=== PATIENT | female | born 1930 | race Caucasian/White ===

== ENCOUNTER → 2017-04-03 | Outpatient (CLI) | payer OTHER ==
[~2017-04-03] MED LIST: ALPR0.25 PO; ASCA500 PO; ASPI81TA28 PO; ATOR-22 PO; BIOT1CAP8 PO; CALC0.5C PO; CALCTAB7 PO; CHOL100010 PO; CLC100X PO; CNT PO; CYAN10004 PO; DOCU-94 PO; FERR-24 PO; FEXO1TAB49 PO; FURO20TA PO; FURO40TA3 PO; GABA-112 PO; HYDR-4716 PO; IMD2X PO; INSDGI SC; INSDGIPEN SC; LACTCHW3 PO; LEVO1TAB PO; LORA10TA51 PO; METO25TA56 PO; MULT-845 PO; NTRGSL/4 UT; NVLG SC; NVLGI SC; NYSP EXT; NYST80OI TOP; POLY335019 PO; POTA10CA28 PO; PRLSR20 PO; SPECCAP4 PO; SULF800T23 PO; SYN100 PO; TRAM-10 PO; WARF-246 PO; WARF2.5T8 PO; WARF5TAB7 PO; XNX25 PO
== END | disposition home or self-care (01) ==
LOC: C.LABSPEC 04-01 15:07
PROVIDERS: ATTEND Podiatrist
DX: E11.51 Type 2 diabetes mellitus with diabetic peripheral angiopathy without gangrene (principal); L97.511 Non-pressure chronic ulcer of other part of right foot limited to breakdown of skin; E11.42 Type 2 diabetes mellitus with diabetic polyneuropathy

== ENCOUNTER → 2017-04-10 | Outpatient (CLI) | payer OTHER ==
--- NOTE | 2017-04-10 13:21 | DIAGNOSTIC IMAGING REPORT ---
BILATERAL LOWER EXTREMITY ARTERIAL DOPPLER STUDY CLINICAL HISTORY: DIABETES. Lower extremity chronic ulcers. COMPARISON STUDY: None. FINDINGS: The right ankle-brachial index measured with the posterior tibial artery was 1.15 and the left ankle-brachial index measured with the dorsalis pedis artery is 1.06. The right dorsalis pedis artery and left posterior tibial artery were not compressible due to the calcified plaque. There are calcified bilateral lower extremity arteries. Triphasic to biphasic waveforms within the bilateral common femoral, superficial femoral, popliteal, and anterior tibial arteries. Borderline elevated peak systolic velocity within the mid right superficial femoral artery of 192 cm/s and within the right popliteal artery of 172 cm/s. The remaining bilateral lower extremity arterial systems demonstrate normal velocities are in Monophasic waveforms seen within the right posterior tibial, peroneal, dorsalis pedis arteries. Triphasic to biphasic waveforms and normal velocities within the left anterior tibial, posterior tibial, peroneal and dorsalis pedis arteries. IMPRESSION: 1. Diffusely calcified bilateral lower extremity arteries. 2. Borderline elevated peak systolic velocities within the mid right superficial femoral artery and right popliteal artery. These may represent areas of mild stenosis. 3. No evidence for arterial occlusion. 4. Monophasic waveforms seen within the right calf vessels consistent with diffuse atherosclerotic disease. Electronically signed by: Luigi Rodrigez M.D. 04/10/2017 1:20 PM Dictated Date/Time: 04/10/2017 1:06 PM
== END | disposition home or self-care (01) ==
LOC: C.ULTR 11:27
PROVIDERS: ATTEND Podiatrist
DX: L97.511 Non-pressure chronic ulcer of other part of right foot limited to breakdown of skin (principal); E11.51 Type 2 diabetes mellitus with diabetic peripheral angiopathy without gangrene; E11.42 Type 2 diabetes mellitus with diabetic polyneuropathy

== ENCOUNTER 2017-04-24 12:07 | Inpatient (IN) | payer OTHER ==
[~2017-04-24] VITALS: Ht 152.4 cm; Wt 80.0 kg
[~2017-04-24 12:07] MED LIST changes: -ALPR0.25 PO; -BIOT1CAP8 PO; -CALCTAB7 PO; -DOCU-94 PO; -FEXO1TAB49 PO; -FURO20TA PO; -HYDR-4716 PO; -INSDGIPEN SC; -MULT-845 PO; -NVLG SC; -NYSP EXT; -NYST80OI TOP; -POLY335019 PO; -SPECCAP4 PO; -SYN100 PO; -WARF-246 PO; -WARF2.5T8 PO
[2017-04-24 13:02] LABS: BASO % 0.7 %; BASO ABS # 0.03 K/uL (0-0.2); COMPLETE YES; EOS % 4.3 %; HEMATOCRIT 44.8 % (37-47); IG% 0.2 %; LYMPH % 28.5 %; LYMPH ABS # 1.27 K/uL (1.2-3.4); MEAN CELL VOLUME 93.9 fL (80-100); MEAN CORPUSCULAR HEMOGLOBIN 30.6 pg (25-34); MEAN CORPUSCULAR HGB CONC 32.6 g/dl (32-36); MEAN PLATELET VOLUME 8.4 fL (7.4-10.4); MONO % 7.4 %; NEUT % 58.9 %; PLATELET COUNT 216 K/uL (130-400); RED BLOOD COUNT 4.77 M/uL (4.2-5.4); WHITE BLOOD COUNT 4.45 K/uL (4.8-10.8)
--- NOTE | 2017-04-24 13:03 | EMERGENCY ROOM VISIT NOTE ---
History Report prepared by Cris: Bertha Rivas Under the Supervision of: Dr. Carleen Talbot D.O. First contact with patient: 12:19 Chief Complaint: REFERRED BY DOCTOR Stated Complaint: KIDNEY ISSUES-REFERRED BY DR. THORNE History of Present Illness The patient is an 86 year old female who presents to the Emergency Room with complaints of persistent abnormal labs that were drawn today. The patient reports that today she had a scheduled visit with her PCP today. She states that when she arrived home today she received a phone call from her doctor's office and was told to get to the emergency department right away for kidney issues. The patient reports that she sees a aluminizer twice per year, but has never been told a full diagnosis. She additionally notes that for the past 7 days she has been an antibiotic for a foot infection. The patient states home health comes every other day to dress her wound and states that she has an appointment with the wound clinic tomorrow. She additionally notes constipation today. The patient denies any change in appetite, chest pain, shortness of breath, vomiting, melena, hematochezia, or urinary symptoms. She reports that she is on Coumadin. I obtained the results from Dr. Thorne's office and the patients BUN and Creatine are 38 and 3.0 which are up from December from 28 and 1.9 Source of History: patient Onset: today Position: other (global) Quality: other (abnormal labs) Timing: other (persistent) Associated Symptoms: No chest pain, No SOB, No vomiting, No melena, No hematochezia, No urinary symptoms Review of Systems See HPI for pertinent positives & negatives. A total of 10 systems reviewed and were otherwise negative. Past Medical & Surgical Medical Problems: (1) RENATO (acute kidney injury) (2) Anticoagulated on warfarin (3) Atrial fibrillation (4) Carotid artery disease (5) Cerebrovascular disease (6) CHF (congestive heart failure) (7) Chronic kidney disease (CKD), stage IV (severe) (8) Coronary artery disease (9) Diabetes mellitus, type II (10) Dyslipidemia (11) Hypertension (12) Hypothyroidism (13) MRSA nasal colonization (14) Osteoporosis (15) Sleep apnea Surgical Problems: (1) History of heart artery stent (2) Status post cardiac catheterization (3) Status post cardiac pacemaker procedure (4) Status post carotid endarterectomy (5) Status post cholecystectomy (6) Status post hysterectomy Family History Diabetes mellitus Social History Smoking Status: Never Smoker Alcohol Use: none Drug Use: none Marital Status: Housing Status: lives alone Occupation Status: retired Current/Historical Medications Scheduled Aspirin (Aspirin Ec), 81 MG PO DAILY Atorvastatin (Lipitor), 20 MG PO QAM Calcium Carbonate-Vitamin D W/ (Caltrate 600 Plus), 1 TAB PO DAILY Ferrous Sulfate (Fe Tabs), 325 MG PO TID Furosemide (Lasix), 20 MG PO DAILY Gabapentin (Neurontin), 100 MG PO TID Hydralazine HCl (Hydralazine HCl), 1 TAB PO BID Insulin Aspart (Novolog), 0 SC UD Insulin Glargine (Lantus Solostar), 30 UNITS SC HS Lactobacillus (Lactinex), 1 TAB PO TID Levothyroxine Sodium (Synthroid), 1 TAB PO DAILYBB Metoprolol Tartrate (Lopressor) (Lopressor), 25 MG PO QAM Multiple Vitamins W/ Minerals (Centrum Silver Adult 50+), 1 TAB PO DAILY Nitroglycerin (Nitrostat), 0.4 MG UT PRN Nystatin (Nystop), 1 APPLN EXT BID Omeprazole (Prilosec), 20 MG PO QAM Polyethylene Glycol 3350 (Miralax), 17 GM PO DAILY Sulfa/Trimethoprim (Bactrim Ds 800MG/160MG), 1 TAB PO BID Warfarin Sodium (Warfarin Sodium), 2.5 MG PO QPM Scheduled PRN Alprazolam (Xanax), 0.25 MG PO BID PRN for Anxiety Fexofenadine Hcl (Holly Allergy), 1 TAB PO DAILY PRN for allergies Tramadol (Ultram), 50 MG PO Q8 PRN for Pain Allergies Coded Allergies: Codeine (Verified Allergy, Intermediate, 04/24/17) Adhesives (Verified Allergy, Unknown, red;itchy skin, 04/24/17) Physical Exam Vital Signs Date Time Temp Pulse Resp B/P (MAP) Pulse Ox O2 Delivery O2 Flow Rate FiO2 04/24/17 15:56 63 18 157/84 98 Room Air 04/24/17 13:50 69 18 188/73 98 Room Air 04/24/17 12:10 36.7 109 20 150/93 98 Room Air Physical Exam GENERAL: alert, well appearing, well nourished, no distress, non-toxic EYE EXAM: normal conjunctiva, PERRL and EOM's grossly intact OROPHARYNX: no exudate, no erythema, lips, buccal mucosa, and tongue normal and mucous membranes are moist NECK: supple, no nuchal rigidity, no adenopathy, non-tender LUNGS: Clear to auscultation. Normal chest wall mechanics HEART: no murmurs, S1 normal and S2 normal ABDOMEN: abdomen soft, non-tender, normo-active bowel sounds, no masses, no rebound or guarding. BACK: Back is symmetrical on inspection and there is no deformity, no midline tenderness, no CVA tenderness. SKIN: no rashes and no bruising UPPER EXTREMITIES: upper extremities are grossly normal. Good cap refill. LOWER EXTREMITIES: Great toe on right foot with dressing intact, not removed. No swelling, no redness or streaking up the foot, no edema, good cap refill. NEURO EXAM: Normal sensorium, cranial nerves II-XII grossly intact, normal speech, no gross weakness of arms, no gross weakness of legs. Medical Decision & Procedures ER Provider Diagnostic Interpretation: US:Per my review, radiologist interpretation. RENAL ULTRASOUND CLINICAL HISTORY: Acute on chronic kidney disease. COMPARISON STUDY: CT of the abdomen and pelvis October 06, 2008. TECHNIQUE: Sonography of the kidneys and the urinary bladder was performed. FINDINGS: There is no hydronephrosis. The right kidney measures 9.6 x 5.1 x 5.5 cm and the left measures 9 x 4.1 x 5.1 cm. Numerous anechoic lesions are consistent with cysts, measuring up to 1.7 cm. There is mild renal cortical thinning. No calculi or solid renal masses were identified by sonography. Neither ureteral jet was identified. IMPRESSION: 1. No hydronephrosis. 2. Mild renal cortical thinning and increased renal echogenicity. 3. Multiple renal cysts. Electronically signed by: Arnoldo Qureshi M.D. 04/24/2017 2:59 PM Dictated Date/Time: 04/24/2017 2:57 PM Laboratory Results 04/24/17 12:50 Red Blood Count 4.77, Mean Corpuscular Volume 93.9, Mean Corpuscular Hemoglobin 30.6, Mean Corpuscular Hemoglobin Concent 32.6, Mean Platelet Volume 8.4, Neutrophils (%) (Auto) 58.9, Lymphocytes (%) (Auto) 28.5, Monocytes (%) (Auto) 7.4, Eosinophils (%) (Auto) 4.3, Basophils (%) (Auto) 0.7, Neutrophils # (Auto) 2.62, Lymphocytes # (Auto) 1.27, Monocytes # (Auto) 0.33, Eosinophils # (Auto) 0.19, Basophils # (Auto) 0.03 Test 04/24/17 12:50 04/24/17 13:50 White Blood Count 4.45 K/uL (4.8-10.8) Red Blood Count 4.77 M/uL (4.2-5.4) Hemoglobin 14.6 g/dL (12.0-16.0) Hematocrit 44.8 % (37-47) Mean Corpuscular Volume 93.9 fL (80-100) Mean Corpuscular Hemoglobin 30.6 pg (25-34) Mean Corpuscular Hemoglobin Concent 32.6 g/dl (32-36) Platelet Count 216 K/uL (130-400) Mean Platelet Volume 8.4 fL (7.4-10.4) Neutrophils (%) (Auto) 58.9 % Lymphocytes (%) (Auto) 28.5 % Monocytes (%) (Auto) 7.4 % Eosinophils (%) (Auto) 4.3 % Basophils (%) (Auto) 0.7 % Neutrophils # (Auto) 2.62 K/uL (1.4-6.5) Lymphocytes # (Auto) 1.27 K/uL (1.2-3.4) Monocytes # (Auto) 0.33 K/uL (0.11-0.59) Eosinophils # (Auto) 0.19 K/uL (0-0.5) Basophils # (Auto) 0.03 K/uL (0-0.2) RDW Standard Deviation 51.0 fL (36.4-46.3) RDW Coefficient of Variation 14.9 % (11.5-14.5) Immature Granulocyte % (Auto) 0.2 % Immature Granulocyte # (Auto) 0.01 K/uL (0.00-0.02) Total Bilirubin 0.4 mg/dl (0.2-1) Aspartate Amino Transf (AST/SGOT) 23 U/L (15-37) Alanine Aminotransferase (ALT/SGPT) 37 U/L (12-78) Alkaline Phosphatase 92 U/L (45-117) Total Protein 8.8 gm/dl (6.4-8.2) Albumin 4.0 gm/dl (3.4-5.0) Globulin 4.8 gm/dl (2.5-4.0) Albumin/Globulin Ratio 0.8 (0.9-2) Urine Color YELLOW Urine Appearance CLOUDY (CLEAR) Urine pH 6.0 (4.5-7.5) Urine Specific [place] 1.020 (1.000-1.030) Urine Protein 2+ (NEG) Urine Glucose (UA) 1+ (NEG) Urine Ketones TRACE (NEG) Urine Occult Blood 2+ (NEG) Urine Nitrite POS (NEG) Urine Bilirubin NEG (NEG) Urine Urobilinogen NEG (NEG) Urine Leukocyte Esterase MODERATE (NEG) Urine WBC (Auto) >30 /hpf (0-5) Urine RBC (Auto) 10-30 /hpf (0-4) Urine Hyaline Casts (Auto) 1-5 /lpf (0-5) Urine Epithelial Cells (Auto) >30 /lpf (0-5) Urine Bacteria (Auto) 4+ (NEG) Urine Pathogenic Casts 5-10 GRANULAR CASTS /lpf (0) Laboratory results per my review. Medications Administered Medications (Trade) Dose Ordered Sig/Danisha Route Start Time Stop Time Status Last Admin Dose Admin Sodium Chloride 500 ml @ 999 mls/hr Q31M STAT IV 04/24/17 13:30 04/24/17 14:00 DC 04/24/17 13:49 999 MLS/HR ED Course 1239: The patient was evaluated in room C11B. A complete history and physical exam was performed. 1330: Ordered Sodium Chloride 500 ml @ 999 mls/hr IV. 1506: I reevaluated the patient and she is updated on her findings so far. Nephrology will be consulted. 1545: I discussed the patients case with Dr. Trinidad, Nephrology. She recommends that the patient is evaluated for further treatment, has an ID consult, and that the Bactrim is held. 1555: I reevaluated the patient and she is resting comfortably. I discussed the exam findings with the patient and I discussed the treatment plan. She verbalized complete understanding and agreement. She will be evaluated for further treatment. 1606: I discussed the patients case with Steffanie Hinton PA-C. She is going to evaluate the patient for further treatment. Medical Decision Medication Reconciliation: I attest that I have personally reviewed the patient' s current medication list. Blood pressure screening: Patient was found to have an elevated blood pressure and was referred to their primary doctor for recheck and further treatment. Pt well appearing here and had no complaints but was advised to come to ER after outpt routine labs revealed worsening Cr compared to baseline. Pt denies any complaints. Given pt complicated case, discussed with nephrology who reviewed pt record and advised admission monitoring of Cr, ID consult. Agrees bactrim recently used for wound infection likely reason for worsening renal function. Doesn't feel UA results requires additional antibiotics at this time. VS stable in the ER. Doubt bacteremia/sepsis. Pt aware of all results and plan and was agreeable. Consults Time Called: 1510 Consulting Physician: Dr. Trinidad, Nephrology Returned Call: [phone] I discussed the patients case with Dr. Trinidad, Nephrology. She recommends that the patient is evaluated for further treatment, has an ID consult, and that the Bactrim is held. Advises against additional antibiotics for UTI despite UA results. Feels likely chronic finding after additional review of pt' s records. Additional Consults: Time Called: 1555 Consulted Physician: Steffanie Hinton PA-C Returned Call: [phone] Additional Comments: I discussed the patients case with Steffanie Hinton PA-C. She is going to evaluate the patient for further treatment. Impression Primary Impression: Acute on chronic renal failure Additional Impression: Diabetic foot ulcer Scribe Attestation The scribe's documentation has been prepared under my direction and personally reviewed by me in its entirety. I confirm that the note above accurately reflects all work, treatment, procedures, and medical decision making performed by me. Departure Information Dispostion Being Evaluated By Hospitalist Referrals Lamonte Thorne D.O. (PCP) Problem Qualifiers Primary Impression: Acute on chronic renal failure Acute renal failure type: unspecified Chronic kidney disease stage: unspecified stage Qualified Codes: N17.9 - Acute kidney failure, unspecified; N18.9 - Chronic kidney disease, unspecified Additional Impression: Diabetic foot ulcer Diabetic foot ulcer location: toe Diabetes mellitus type: type 2 Laterality : right Non-pressure ulcer stage: unspecified non-pressure ulcer stage Qualified Codes: E11.621 - Type 2 diabetes mellitus with foot ulcer; L97.519 - Non-pressure chronic ulcer of other part of right foot with unspecified severity
[2017-04-24 13:17] LABS: INR 2.9 (0.9-1.1); PROTHROMBIN TIME (PATIENT) 32.6 SECONDS (9.0-12.0)
[2017-04-24 13:23] LABS: BUN/CREATININE RATIO 12.2 (10-20); POTASSIUM 3.9 mmol/L (3.5-5.1)
[2017-04-24 13:26] LABS: ALB/GLOB RATIO 0.8 (0.9-2)
[2017-04-24] MEDS ORDERED: SODIUM CHLORIDE 0.9% 500ML 500 ML IV STA (13:30)
[2017-04-24] MEDS ORDERED: NYST80OI TOP (13:41)
[2017-04-24] MEDS ORDERED: FEXO1TAB49 PO (13:41)
[2017-04-24] MEDS ORDERED: DOCU-94 PO (13:58)
[2017-04-24] MEDS ORDERED: SYN100 PO (13:58)
[2017-04-24] MEDS ORDERED: POLY335019 PO (13:58)
[2017-04-24] MEDS ORDERED: INSDGIPEN SC (13:58)
[2017-04-24] MEDS ORDERED: MULT-845 PO (13:58)
[2017-04-24] MEDS ORDERED: ALPR0.25 PO (13:58)
[2017-04-24] MEDS ORDERED: BIOT1CAP8 PO (13:58)
[2017-04-24] MEDS ORDERED: HYDR-4716 PO (13:58)
[2017-04-24] MEDS ORDERED: WARF-246 PO ×2 (13:58)
[2017-04-24] MEDS ORDERED: FURO20TA PO (13:58)
[2017-04-24] MEDS ORDERED: CALCTAB7 PO (13:58)
[2017-04-24] MEDS ORDERED: NVLG SC (13:59)
[2017-04-24 14:08] LABS: URINE APPEARANCE CLOUDY (CLEAR); URINE BILIRUBIN NEG (NEG); URINE COLOR YELLOW; URINE EPITHELIAL CELL AUTO >30 /lpf (0-5); URINE NITRITE POS (NEG); UROBILINOGEN NEG (NEG); ZZUR CULT IF INDIC CLEAN CATCH YES
[2017-04-24 14:09] LABS: MANUAL MICROSCOPIC REQUIRED? NO; REVIEW REQ? YES
[2017-04-24 14:26] LABS: URINE PATH CASTS 5-10 GRANULAR CASTS /lpf (0)
--- NOTE | 2017-04-24 15:00 | DIAGNOSTIC IMAGING REPORT ---
RENAL ULTRASOUND CLINICAL HISTORY: Acute on chronic kidney disease. COMPARISON STUDY: CT of the abdomen and pelvis October 06, 2008. TECHNIQUE: Sonography of the kidneys and the urinary bladder was performed. FINDINGS: There is no hydronephrosis. The right kidney measures 9.6 x 5.1 x 5.5 cm and the left measures 9 x 4.1 x 5.1 cm. Numerous anechoic lesions are consistent with cysts, measuring up to 1.7 cm. There is mild renal cortical thinning. No calculi or solid renal masses were identified by sonography. Neither ureteral jet was identified. IMPRESSION: 1. No hydronephrosis. 2. Mild renal cortical thinning and increased renal echogenicity. 3. Multiple renal cysts. Electronically signed by: Arnoldo Qureshi M.D. 04/24/2017 2:59 PM Dictated Date/Time: 04/24/2017 2:57 PM
[2017-04-24] MEDS ORDERED: PIPERACILLIN/TAZOBACTAM 3.375 GM/100ML D5W IV STA (15:39)
[2017-04-24] MEDS ORDERED: ACETAMINOPHEN 325 MG TAB PO PRN (17:30)
[2017-04-24] MEDS ORDERED: ONDANSETRON INJ 2 MG/ML 2 ML VIAL IV PRN (17:30)
[2017-04-24] MEDS ORDERED: DEXTROSE 50% 50 ML SYR IV PRN (17:45)
[2017-04-24] MEDS ORDERED: GLUCOSE 10 TABS/TUBE PO PRN (17:45)
[2017-04-24] MEDS ORDERED: GLUCOSE 40% GEL 15 GM TUBE PO PRN (17:45)
[2017-04-24] MEDS ORDERED: GLUCAGON FOR INJ 1 MG VIAL SQ PRN (17:45)
[2017-04-24] MEDS ORDERED: NYSP EXT (17:51)
[2017-04-24 18:00] VITALS: BP 153/73; PULSE 64; TEMP 36.8; O2SAT 98
[2017-04-24] MEDS ORDERED: NITROGLYCERIN 0.4 MG SL PER TAB CHARGE UT PRN (18:00)
[2017-04-24] MEDS ORDERED: FEXOFENADINE HCL 180 MG TAB PO PRN (18:00)
[2017-04-24] MEDS ORDERED: TRAMADOL HCL 50 MG TAB PO PRN (18:00)
[2017-04-24] MEDS ORDERED: SODIUM CHLORIDE 0.9% 1000ML 1,000 ML IV SCH (18:30)
[2017-04-24] MEDS ORDERED: INVANZ PHARMACY CONSULT IN PROGRESS PRN (19:15)
[2017-04-24] MEDS ORDERED: CIPROFLOXACIN CONSULT ACTIVE PRN ×2 (19:15)
[2017-04-24] MEDS: NYSTATIN POWDER 15GM BTL EXT SCH (19:34)
[2017-04-24] MEDS: FERROUS SULFATE 325 MG TAB PO SCH (19:39)
[2017-04-24] MEDS: WARFARIN SOD 2.5 MG TAB PO SCH (19:41)
[2017-04-24] MEDS: GABAPENTIN 100 MG CAP PO SCH (19:41)
[2017-04-24] MEDS: LACTOBACILLUS ACIDOPHILUS (FLORANEX) TAB PO SCH (19:43)
[2017-04-24 19:45] VITALS: Ht 152.4 cm; Wt 80.0 kg
[2017-04-24] MEDS ORDERED: ERTAPENEM IV 500 MG in SODIUM CHLORIDE 0.9% 50 ML IV SCH (20:00)
[2017-04-24] MEDS ORDERED: DAPTOMYCIN CONSULT ACTIVE SCH ×2 (20:51)
--- NOTE | 2017-04-24 20:54 | History and Physical ---
History & Physical Date & Time of Service: Apr 24, 2017 at 17:46 Chief Complaint: Kidney Issues-Referred By Dr. Thorne Primary Care Physician: Lamonte Thorne D.OAmber History of Present Illness Source: patient, clinic records This is an 86 year old female with PMH of CKD stage IV, AF on Coumadin, s/p pacemaker, CAD, systolic CHF, hx CVA, hypertension, DM 2, and other problems listed below who was sent to the ED by PCP Dr. Thorne for abnormal labs. Routine labs yesterday showed creatinine increased to 3.0 from baseline of 2 and therefore patient was called and told to come to ER. Patient has been on Bactrim for infected right great toe ulcer for past seven days with resolution of erythema and swelling. Denies drainage from ulcer. Pt follows with wound care and has appointment there tomorrow. Since being on the antibiotic has mild nausea/ decreased appetite but has forced herself to eat anyway. Has increased urinary frequency. Had symptomatic hypoglycemic episode with BSG of 54 a few days ago. She denies fever, chills, chest pain, SOB, vomiting, diarrhea, dysuria , edema, abnormal bleeding. No NSAID use. Past Medical/Surgical History Medical Problems: (1) Anticoagulated on warfarin Status: Chronic (2) Atrial fibrillation Status: Chronic (3) Carotid artery disease Status: Chronic (4) Cerebrovascular disease Status: Chronic (5) CHF (congestive heart failure) Permanent Comment: left ventricular systolic failure, LVEF 35% Status: Chronic (6) Chronic kidney disease (CKD), stage IV (severe) Status: Chronic (7) Coronary artery disease Status: Chronic (8) Diabetes mellitus, type II Status: Chronic (9) Dyslipidemia Status: Chronic (10) Hypertension Status: Chronic (11) Hypothyroidism Status: Chronic (12) MRSA nasal colonization Status: Chronic (13) Osteoporosis Status: Chronic (14) Sleep apnea Permanent Comment: intolerant of CPAP Status: Chronic Surgical Problems: (1) History of heart artery stent Status: Chronic (2) Status post cardiac catheterization Status: Chronic (3) Status post cardiac pacemaker procedure Status: Chronic (4) Status post carotid endarterectomy Status: Chronic (5) Status post cholecystectomy Status: Chronic (6) Status post hysterectomy Status: Chronic Family History Diabetes mellitus Social History Smoking Status: Former Smoker (quit in her 20s) Alcohol Use: none Drug Use: none Marital Status: Housing status: lives alone Occupational Status: retired Immunizations History of Influenza Vaccine: N/A Influenza Vaccine Date: Aug 20, 2006 History of Tetanus Vaccine?: unknown History of Pneumococcal: Yes Pneumococcal Date: Aug 12, 2005 History of Hepatitis B Vaccine: No Multi-Drug Resistant Organisms History of MDRO: Yes Type of MDRO: MRSA Allergies Coded Allergies: Codeine (Verified Allergy, Intermediate, 04/24/17) Adhesives (Verified Allergy, Unknown, red;itchy skin, 04/24/17) Home Medications Scheduled Aspirin (Aspirin Ec), 81 MG PO DAILY Atorvastatin (Lipitor), 20 MG PO QAM Calcium Carbonate-Vitamin D W/ (Caltrate 600 Plus), 1 TAB PO DAILY Ferrous Sulfate (Fe Tabs), 325 MG PO TID Furosemide (Lasix), 20 MG PO DAILY Gabapentin (Neurontin), 100 MG PO TID Hydralazine HCl (Hydralazine HCl), 1 TAB PO BID Insulin Aspart (Novolog), 0 SC UD Insulin Glargine (Lantus Solostar), 30 UNITS SC HS Lactobacillus (Lactinex), 1 TAB PO TID Levothyroxine Sodium (Synthroid), 1 TAB PO DAILYBB Metoprolol Tartrate (Lopressor) (Lopressor), 25 MG PO QAM Multiple Vitamins W/ Minerals (Centrum Silver Adult 50+), 1 TAB PO DAILY Nitroglycerin (Nitrostat), 0.4 MG UT PRN Nystatin (Nystop), 1 APPLN EXT BID Omeprazole (Prilosec), 20 MG PO QAM Polyethylene Glycol 3350 (Miralax), 17 GM PO DAILY Sulfa/Trimethoprim (Bactrim Ds 800MG/160MG), 1 TAB PO BID Warfarin Sodium (Warfarin Sodium), 2.5 MG PO QPM Scheduled PRN Alprazolam (Xanax), 0.25 MG PO BID PRN for Anxiety Fexofenadine Hcl (Holly Allergy), 1 TAB PO DAILY PRN for allergies Tramadol (Ultram), 50 MG PO Q8 PRN for Pain Review of Systems Ten systems reviewed and negative except as noted in HPI. Physical Exam Vital Signs Date Time Temp Pulse Resp B/P (MAP) Pulse Ox O2 Delivery O2 Flow Rate FiO2 04/24/17 15:56 63 18 157/84 98 Room Air 04/24/17 13:50 69 18 188/73 98 Room Air 04/24/17 12:10 36.7 109 20 150/93 98 Room Air General Appearance: WD/WN, no apparent distress, + pertinent finding (pleasant alert elderly female sitting on edge of bed, no distress) Head: normocephalic, atraumatic Eyes: normal inspection ENT: hearing grossly normal, pharynx normal Neck: supple, trachea midline Respiratory/Chest: lungs clear, normal breath sounds, no respiratory distress, no accessory muscle use Cardiovascular: regular rate, rhythm, no murmur Abdomen/GI: normal bowel sounds, non tender, soft Extremities/Musculoskelatal: no calf tenderness, normal capillary refill, no pedal edema Neurologic/Psych: alert, normal mood/affect, oriented x 3, + pertinent finding (no focal deficit on gross examination) Skin: warm/dry, + pertinent finding (right great toe eschar, no drainaage, no erythema or swelling, nontender. also has erythema, fungal odor, and skin tear in abdominal fold. ) Diagnostics Laboratory Results Results Past 24 Hours Test 04/24/17 12:49 04/24/17 12:50 04/24/17 13:50 Range/Units Bedside Glucose 123 70-90 mg/dl White Blood Count 4.45 4.8-10.8 K/uL Red Blood Count 4.77 4.2-5.4 M/uL Hemoglobin 14.6 12.0-16.0 g/dL Hematocrit 44.8 37-47 % Mean Corpuscular Volume 93.9 80-100 fL Mean Corpuscular Hemoglobin 30.6 25-34 pg Mean Corpuscular Hemoglobin Concent 32.6 32-36 g/dl Platelet Count 216 130-400 K/uL Mean Platelet Volume 8.4 7.4-10.4 fL Neutrophils (%) (Auto) 58.9 % Lymphocytes (%) (Auto) 28.5 % Monocytes (%) (Auto) 7.4 % Eosinophils (%) (Auto) 4.3 % Basophils (%) (Auto) 0.7 % Neutrophils # (Auto) 2.62 1.4-6.5 K/uL Lymphocytes # (Auto) 1.27 1.2-3.4 K/uL Monocytes # (Auto) 0.33 0.11-0.59 K/uL Eosinophils # (Auto) 0.19 0-0.5 K/uL Basophils # (Auto) 0.03 0-0.2 K/uL RDW Standard Deviation 51.0 36.4-46.3 fL RDW Coefficient of Variation 14.9 11.5-14.5 % Immature Granulocyte % (Auto) 0.2 % Immature Granulocyte # (Auto) 0.01 0.00-0.02 K/uL Prothrombin Time 32.6 9.0-12.0 SECONDS Prothromb Time International Ratio 2.9 0.9-1.1 Sodium Level 141 136-145 mmol/L Potassium Level 3.9 3.5-5.1 mmol/L Chloride Level 110 98-107 mmol/L Carbon Dioxide Level 20 21-32 mmol/L Anion Gap 11.0 3-11 mmol/L Blood Urea Nitrogen 37 7-18 mg/dl Creatinine 3.00 0.60-1.20 mg/dl Est Creatinine Clear Calc Drug Dose 13.1 ml/min Estimated GFR () 15.9 Estimated GFR (Non- 13.7 BUN/Creatinine Ratio 12.2 10-20 Random Glucose 119 70-99 mg/dl Calcium Level 9.0 8.5-10.1 mg/dl Total Bilirubin 0.4 0.2-1 mg/dl Aspartate Amino Transf (AST/SGOT) 23 15-37 U/L Alanine Aminotransferase (ALT/SGPT) 37 12-78 U/L Alkaline Phosphatase 92 45-117 U/L Total Protein 8.8 6.4-8.2 gm/dl Albumin 4.0 3.4-5.0 gm/dl Globulin 4.8 2.5-4.0 gm/dl Albumin/Globulin Ratio 0.8 0.9-2 Urine Color YELLOW Urine Appearance CLOUDY CLEAR Urine pH 6.0 4.5-7.5 Urine Specific [place] 1.020 1.000-1.030 Urine Protein 2+ NEG Urine Glucose (UA) 1+ NEG Urine Ketones TRACE NEG Urine Occult Blood 2+ NEG Urine Nitrite POS NEG Urine Bilirubin NEG NEG Urine Urobilinogen NEG NEG Urine Leukocyte Esterase MODERATE NEG Urine WBC (Auto) >30 0-5 /hpf Urine RBC (Auto) 10-30 0-4 /hpf Urine Hyaline Casts (Auto) 1-5 0-5 /lpf Urine Epithelial Cells (Auto) >30 0-5 /lpf Urine Bacteria (Auto) 4+ NEG Urine Pathogenic Casts 5-10 GRANULAR CASTS 0 /lpf Microbiology Results 04/24/17 Urine Culture, Received Pending Diagnostic Radiology RENAL ULTRASOUND CLINICAL HISTORY: Acute on chronic kidney disease. COMPARISON STUDY: CT of the abdomen and pelvis October 06, 2008. TECHNIQUE: Sonography of the kidneys and the urinary bladder was performed. FINDINGS: There is no hydronephrosis. The right kidney measures 9.6 x 5.1 x 5.5 cm and the left measures 9 x 4.1 x 5.1 cm. Numerous anechoic lesions are consistent with cysts, measuring up to 1.7 cm. There is mild renal cortical thinning. No calculi or solid renal masses were identified by sonography. Neither ureteral jet was identified. IMPRESSION: 1. No hydronephrosis. 2. Mild renal cortical thinning and increased renal echogenicity. 3. Multiple renal cysts. Impression Assessment and Plan RENATO ON CKD STAGE IV Creat is 3.0 from baseline 2 Likely due to Bactrim UA appears infected- treatment outlined below Renal US- No hydronephrosis. Mild renal cortical thinning and increased renal echogenicity. Multiple renal cysts. Received 500 mL IVF in ER Hold Bactrim, hold Lasix, give gentle IVF's at 50 mL/hour Recheck renal function in am Consult nephrology- case d/w Dr. Ramey by ED provider UTI History of recurrent UTI with prior urine cultures growing ESBL E. coli and pseudomonas. But latest culture in january 2017 growing e.coli sensitive to Rocephin and cefepime( In Epic). Afebrile, no leukocytosis Treat with empiric cefepime and daptomycin Follow up urine culture Consult ID, patient known to Dr. Acuña Right great toe infection f/u with wound clinic no active drainage seen holding Bactrim which was started about a week ago abx as above ID consulted wound care consult PAF ON COUMADIN Rate is controlled Continue metoprolol INR is 2.9; continue Coumadin HX CAD S/P STENT Stable, no anginal symptoms Continue aspirin, statin, beta loren CHRONIC SYSTOLIC CHF Euvolemic to mildly dry Hold Lasix Gentle IVF's Monitor volume status DM TYPE 2 Decrease Lantus due to reported symptomatic hypoglycemia at home Novolog sliding scale Monitor BSG AC HS A1c was 6.4 on 04/23/17 HYPERTENSION BP is elevated possibly due to anxiety of being in ER Continue metoprolol and hydralazine Monitor History of CVA Continue aspirin and statin HYPOTHYROIDISM Continue levothyroxine ALISSA Intolerant to CPAP DEEP VEIN THROMBOSIS PROPHYLAXIS: Continue Coumadin DISPOSITION Lives alone Follows with Dr. Thorne for primary care Patient seen in collaboration with Dr. Fiore. Please see his addendum. Agree with above note.Patient went to see her PCP yesterday for regular visit and was called today and told to go to ER as labs were abnormal. Her renal function worsened. Patient says she is having nausea since she started on Bactrim for her right great toe infection about a week ago. Otherwise was doing fine. No fevers. No sob or cough. Resting comfortably and hemodynamically stable. p/e Ge not in distress Cvs s1 and s2 heard regular, no murmurs Rs cta b/l no added sounds Abd benign Clinical Laboratory Assistant non focal Ext no edema no erythema a/p ARf on CKD4 baseline cr 2 presented with cr 3.0 holding Bactrim and Lasix on gentle fluids 'f/u labs in am nephrology consulted UTI and right great toe infection abx as above' f/u cx ID and wound care consult VTE Prophylaxis VTE Risk Assessment Done? Y/N: Yes Risk Level: Moderate Given or contraindicated: Warfarin (Coumadin)
[2017-04-24] MEDS ORDERED: DAPTOmycin IV 350 MG in SODIUM CHLORIDE 0.9% 50ML 50 ML IV SCH (21:00)
[2017-04-24] MEDS ORDERED: CEFEPIME CONSULT ACTIVE SCH ×2 (21:11)
[2017-04-24] MEDS ORDERED: CEFEPIME IV 2000 MG in DEXTROSE 5% 100ML IV ONE (21:30)
[2017-04-24] MEDS: ALPRAZOLAM 0.25 MG TAB PO PRN (22:31)
[2017-04-24] MEDS: INSULIN ASPART 100 UNITS/ML 3 ML PEN SC SCH (22:42)
[2017-04-24] MEDS: INSULIN GLARGINE SOLOSTAR 100 UNITS/ML 3 ML PEN SC SCH (22:43)
[2017-04-25] MEDS: LEVOTHYROXINE 100 MCG TAB PO SCH (06:39)
[2017-04-25 07:26] LABS: INR 2.4 (0.9-1.1); PROTHROMBIN TIME (PATIENT) 26.8 SECONDS (9.0-12.0)
[2017-04-25 07:47] LABS: BUN/CREATININE RATIO 11.8 (10-20); CALCIUM 7.7 mg/dl (8.5-10.1); CREATININE 2.8 mg/dl (0.60-1.20)
[2017-04-25 08:00] VITALS: O2SAT 97
[2017-04-25 08:13] VITALS: BP 143/82; PULSE 61; TEMP 36.5; O2SAT 98
[2017-04-25] MEDS: INSULIN ASPART 100 UNITS/ML 3 ML PEN SC SCH ×4 (09:02→21:37)
[2017-04-25] MEDS: ASPIRIN 81 MG ECTAB PO SCH ×3 (09:04→20:00)
[2017-04-25] MEDS: PANTOprazole SOD 40 MG TAB PO SCH (09:05)
[2017-04-25] MEDS: ATORVASTATIN 20 MG TAB PO SCH (09:05)
[2017-04-25] MEDS: CALCIUM 600MG + VIT D 400 IU TAB PO SCH (09:06)
[2017-04-25] MEDS: FERROUS SULFATE 325 MG TAB PO SCH ×3 (09:07→21:30)
[2017-04-25] MEDS: NYSTATIN POWDER 15GM BTL EXT SCH ×2 (09:08→21:29)
[2017-04-25] MEDS: POLYETHYLENE (MIRALAX) 17 GM PACK PO SCH (09:08)
[2017-04-25] MEDS: LACTOBACILLUS ACIDOPHILUS (FLORANEX) TAB PO SCH ×3 (09:09→18:03)
[2017-04-25] MEDS: CEROVITE ADV FORMULA TAB PO SCH (09:09)
[2017-04-25 09:10] VITALS: BP 148/74; PULSE 59
[2017-04-25] MEDS: GABAPENTIN 100 MG CAP PO SCH ×3 (09:11→21:32)
[2017-04-25] MEDS: METOPROLOL TARTRATE 25 MG TAB PO SCH ×2 (09:12→09:20)
[2017-04-25] MEDS: ALPRAZOLAM 0.25 MG TAB PO PRN ×2 (09:33→21:44)
--- NOTE | 2017-04-25 10:11 | Medical Consult ---
Consultation Date of Consultation: Apr 25, 2017. Attending Physician: Nyla Terrell M.D. Reason for Consultation: Recurrent UTI, hx ESBL E. Coli History of Present Illness Patient is an 86 yo female with history of CKD, AF s/p pacemaker, DM, and recurrent UTI's. The patient is well known to me from outpatient consultation previously for UTI. Recently, the patient has been following at the [facility] care center for right toe ulceration with E. Coli infection. She had recently been treated for right toe ulceration with PO Bactrim from records. The patient states that she has had multiple different abx lately for her feet, UTI's, etc. She states that she has been having nausea since admission and also has been experiencing some urinary frequency, but feels this may be from the IV fluids/ medications. She denies dysuria, hematuria, or urinary urgency. Since admission, her WBC count was 4.45. Creatinine was 3.00, and urine culture is growing GNB x 2. Urinalysis showed 4+ bacteria, >30 WBCs, Moderate Leukocyte esterase, and positive nitrite. Renal U/S showed no hydronephrosis but did show mild renal cortical thinning and increased renal echogenicity with multiple renal cysts. Dr. Acuña and I briefly discussed this patient with Dr. Trinidad as well. Past Medical/Surgical History Medical Problems: (1) Acute on chronic renal failure Status: Acute (2) Diabetic foot ulcer Status: Acute (3) Diabetic ulcer of right great toe Status: Acute (4) Fall Status: Acute (5) Intertrochanteric fracture of left hip Status: Acute Medical Problems: (1) RENATO (acute kidney injury) (2) Anticoagulated on warfarin (3) Atrial fibrillation (4) Carotid artery disease (5) Cerebrovascular disease (6) CHF (congestive heart failure) (7) Chronic kidney disease (CKD), stage IV (severe) (8) Coronary artery disease (9) Diabetes mellitus, type II (10) Dyslipidemia (11) Hypertension (12) Hypothyroidism (13) MRSA nasal colonization (14) Osteoporosis (15) Sleep apnea Surgical Problems: (1) History of heart artery stent (2) Status post cardiac catheterization (3) Status post cardiac pacemaker procedure (4) Status post carotid endarterectomy (5) Status post cholecystectomy (6) Status post hysterectomy Family History Diabetes mellitus Noncontributory Social History Smoking Status: Former Smoker (quit in her 20s) Alcohol Use: none Drug Use: none Marital Status: Housing Status: lives alone Occupation Status: retired Allergies Coded Allergies: Codeine (Verified Allergy, Intermediate, 04/24/17) Adhesives (Verified Allergy, Unknown, red;itchy skin, 04/24/17) Home Medications Reported Home Medications Medications Dose Route/Sig Max Daily Dose Days Date Category Dose Instructions Nystop (Nystatin) 45 Appln/15 Gm Powd 1 Appln EXT BID 04/24/17 Reported Novolog (Insulin Aspart) 100 Units/Ml Inj 0 SC UD 04/24/17 Reported sliding scale Miralax (Polyethylene Glycol 3350) 1 Pow Pow 17 Gm PO DAILY 04/24/17 Reported Caltrate 600 Plus (Calcium Carbonate-Vitamin D W/) 1 Tab Tab 1 Tab PO DAILY 04/24/17 Reported Centrum Silver Adult 50+ (Multiple Vitamins W/ Minerals) 1 Tab Tab 1 Tab PO DAILY 04/24/17 Reported Synthroid (Levothyroxine Sodium) 100 Mcg Tab 1 Tab PO DAILYBB 04/24/17 Reported Hydralazine HCl 25 Mg Tab 1 Tab PO BID 04/24/17 Reported Lasix (Furosemide) 20 Mg Tab 20 Mg PO DAILY 04/24/17 Reported Warfarin Sodium 5 Mg Tab 2.5 Mg PO QPM 90 04/24/17 Reported usually 5mg Saturday, Saturday, Saturday and Saturday and 2.5mg Saturday, and Saturday as of 04/23/17 taking 2.5mg for the remainder of the week Lantus Solostar (Insulin Glargine) 100 Unit/Ml Inj 30 Units SC HS 04/24/17 Reported Xanax (Alprazolam) 0.25 Mg Tab 0.25 Mg PO BID PRN 04/24/17 Reported Holly Allergy (Fexofenadine Hcl) 180 Mg Tab 1 Tab PO DAILY PRN 14 04/24/17 Reported Bactrim Ds 800MG/160MG (Trimethoprim/Sulfamethoxazole) Tab 1 Tab PO BID 04/18/17 Reported Ultram (Tramadol HCl) 50 Mg Tab 50 Mg PO Q8 PRN 10 06/06/16 Rx Lactinex (Lactobacillus) Chw 1 Tab PO TID 10/10/15 Reported Lipitor (Atorvastatin Calcium) 20 Mg Tab 20 Mg PO QAM 12/21/14 Reported Lopressor (Metoprolol Tartrate) 25 Mg Tab 25 Mg PO QAM 01/29/14 Reported Aspirin Ec (Aspirin) 81 Mg Tab 81 Mg PO DAILY 07/09/13 Reported Fe Tabs (Ferrous Sulfate) 325 Mg Tab 325 Mg PO TID 10/15/12 Reported Neurontin (Gabapentin) 100 Mg Cap 100 Mg PO TID 07/07/11 Reported Prilosec (Omeprazole) 20 Mg Capcr 20 Mg PO QAM 10/06/08 Reported Nitrostat (Nitroglycerin) 0.4 Mg Tab 0.4 Mg UT PRN 10/06/08 Reported ONE TAB UNDER TONGUE NEEDED FOR CHEST PAIN MAXIMUM 3 DOSES Current Inpatient Medications Current Inpatient Medications Medications (Trade) Dose Ordered Sig/Danisha Route Start Time Stop Time Status Last Admin Dose Admin Acetaminophen (Tylenol Tab) 650 mg Q4H PRN PO 04/24/17 17:30 05/24/17 17:29 Ondansetron HCl (Zofran Inj) 4 mg Q6H PRN IV 04/24/17 17:30 05/24/17 17:29 Sodium Chloride 1,000 ml @ 50 mls/hr Q20H IV 04/24/17 18:30 05/24/17 18:29 04/24/17 19:33 50 MLS/HR Insulin Aspart (novoLOG ASPART) SLIDING SCALE If C... ACHS SC 04/24/17 22:00 05/24/17 21:59 04/24/17 22:42 1 UNITS Glucose (Glucose 40% Gel) 15-30 GRAMS 15 GRAMS... UD PRN PO 04/24/17 17:45 05/24/17 17:44 Glucose (Glucose Chew Tab) 4-8 Tablets 4 Tabl... UD PRN PO 04/24/17 17:45 05/24/17 17:44 Dextrose (Dextrose 50% 50ML Syringe) 25-50ML OF 50% DW IV FOR... UD PRN IV 04/24/17 17:45 05/24/17 17:44 Glucagon (Glucagon Inj) 1 mg UD PRN SQ 04/24/17 17:45 05/24/17 17:44 Alprazolam (Xanax Tab) 0.25 mg BID PRN PO 04/24/17 18:00 05/24/17 17:59 04/25/17 09:33 0.25 MG Aspirin (Ecotrin Tab) 81 mg DAILY PO 04/25/17 08:00 05/25/17 08:59 Atorvastatin Calcium (Lipitor Tab) 20 mg QAM PO 04/25/17 08:00 05/25/17 08:59 04/25/17 09:05 20 MG Calcium/Vitamin D (Caltrate Plus Tab) 1 tab DAILY PO 04/25/17 08:00 05/25/17 08:59 04/25/17 09:06 1 TAB Ferrous Sulfate (Feosol Tab) 325 mg TID PO 04/24/17 20:00 05/24/17 20:59 04/25/17 09:07 325 MG Fexofenadine HCl (Holly Tab) 180 mg DAILY PRN PO 04/24/17 18:00 05/24/17 17:59 Gabapentin (Neurontin Cap) 100 mg TID PO 04/24/17 20:00 05/24/17 20:59 04/25/17 09:11 100 MG Hydralazine HCl (Apresoline Tab) 25 mg BID PO 04/24/17 20:00 05/24/17 20:59 04/25/17 09:04 25 MG Insulin Glargine (Lantus Solostar Pen) 20 unit HS SC 04/24/17 21:00 05/24/17 20:59 04/24/17 22:43 20 UNIT Lactobacillus Acidophilus (Floranex Tab) 4 tab TIDM PO 04/24/17 20:00 05/24/17 19:59 04/25/17 09:09 4 TAB Levothyroxine Sodium (Synthroid Tab) 100 mcg DAILYBB PO 04/25/17 06:30 05/25/17 06:59 04/25/17 06:39 100 MCG Metoprolol Tartrate (Lopressor Tab) 25 mg QAM PO 04/25/17 08:00 05/25/17 08:59 Multivitamins/ Minerals (Multivitamin W/ Minerals Tab) 1 tab DAILY PO 04/25/17 08:00 05/25/17 08:59 04/25/17 09:09 1 TAB Nitroglycerin (Nitrostat Tab) 0.4 mg UD PRN UT 04/24/17 18:00 05/24/17 17:59 Tramadol HCl (Ultram Tab) 50 mg Q8H PRN PO 04/24/17 18:00 05/24/17 17:59 Warfarin Sodium (Coumadin Tab) 2.5 mg DAILY@1600 PO 04/24/17 21:00 05/24/17 20:59 04/24/17 19:41 2.5 MG Pantoprazole Sodium (Protonix Tab) 40 mg QAM PO 04/25/17 08:00 05/25/17 08:59 04/25/17 09:05 40 MG Polyethylene (Miralax Powder Packet) 17 gm DAILY PO 04/25/17 08:00 05/25/17 08:59 04/25/17 09:08 17 GM Nystatin (Mycostatin Powder) 1 appln BID EXT 04/24/17 20:00 05/24/17 20:59 04/25/17 09:08 1 APPLN Cefepime HCl (Consult) 1 ea UD N/A 04/24/17 21:11 05/24/17 21:10 Daptomycin (Consult) 1 ea UD N/A 04/24/17 20:51 05/24/17 20:50 Daptomycin 350 mg/ Sodium Chloride 57 ml @ 120 mls/hr Q48H IV 04/24/17 21:00 05/04/17 20:59 04/24/17 21:59 120 MLS/HR Cefepime HCl 500 mg/Dextrose 105.65 ml @ 222.6 mls/hr DAILY@2000 IV 04/25/17 20:00 05/05/17 19:59 Review of Systems Constitutional: No fever, No chills, No sweats Eyes: No worsening of vision ENT: No hearing loss Respiratory: No cough, No shortness of breath Cardiovascular: No chest pain Abdomen: + nausea, No pain, No vomiting, No diarrhea Musculoskeletal: No joint pain Genitourinary - Female: + urinary frequency, No dysuria Integumentary: No rash, No itch Physical Exam Date Time Temp Pulse Resp B/P (MAP) Pulse Ox O2 Delivery O2 Flow Rate FiO2 04/25/17 09:10 59 148/74 (98) 04/25/17 08:13 36.5 61 18 143/82 (102) 98 Room Air 04/24/17 19:45 Room Air 04/24/17 18:00 36.8 64 18 153/73 (99) 98 Room Air 04/24/17 17:45 61 18 166/79 97 04/24/17 15:56 63 18 157/84 98 Room Air 04/24/17 13:50 69 18 188/73 98 Room Air 04/24/17 12:10 36.7 109 20 150/93 98 Room Air General Appearance: no apparent distress, + obese Head: normocephalic, atraumatic Eyes: normal inspection, sclerae normal ENT: hearing grossly normal Neck: supple, trachea midline Respiratory/Chest: chest non-tender, lungs clear, normal breath sounds, no respiratory distress, no accessory muscle use Cardiovascular: regular rate, rhythm, no murmur Abdomen/GI: normal bowel sounds, non tender, soft Extremities/Musculoskelatal: normal inspection, normal range of motion Neurologic/Psych: alert, normal mood/affect Skin: normal color, warm/dry, no rash Laboratory Results RENAL ULTRASOUND CLINICAL HISTORY: Acute on chronic kidney disease. COMPARISON STUDY: CT of the abdomen and pelvis October 06, 2008. TECHNIQUE: Sonography of the kidneys and the urinary bladder was performed. FINDINGS: There is no hydronephrosis. The right kidney measures 9.6 x 5.1 x 5.5 cm and the left measures 9 x 4.1 x 5.1 cm. Numerous anechoic lesions are consistent with cysts, measuring up to 1.7 cm. There is mild renal cortical thinning. No calculi or solid renal masses were identified by sonography. Neither ureteral jet was identified. IMPRESSION: 1. No hydronephrosis. 2. Mild renal cortical thinning and increased renal echogenicity. 3. Multiple renal cysts. RUN DATE: 04/25/17 [facility] LAB PAGE 1 RUN TIME: 0837 Specimen Inquiry PATIENT: MANE LEONG LOC: [id number] U # : [id number] AGE/SX: 86/F ROOM: 458 REG : 04/24/[address]: Nyla Terrell M.D. : 1930 BED: 1 DIS : STATUS: ADM IN TLOC: SPEC #: [id number] DAVID: 04/24/17 STATUS: RES REQ #: [id number] RECD: 04/24/[address]: Carleen Talbot DO SOURCE: ISHA, CC ENTR: 04/24/[address] [facility] [address]: Lamonte Thorne D.OAmber SPDES: ORDERED: CULTURE URCLEAN Procedure Result Verified Site URINE CULTURE Preliminary 04/25/17-0836 Organism 1 GRAM NEGATIVE BACILLI COLONY COUNT >100,000 CFU/ml SENS SENSITIVITY TO FOLLOW Organism 2 GRAM NEGATIVE BACILLI#2 COLONY COUNT >100,000 CFU/ml SENS SENSITIVITY TO FOLLOW Item Value Date Time Urine Culture - Preliminary Resulted 04/24/17 1350 Urine , Clean Catch Gram Negative Bacilli Last 24 Hours Test 04/24/17 12:49 04/24/17 12:50 04/24/17 13:50 04/24/17 17:55 Bedside Glucose 123 mg/dl 135 mg/dl White Blood Count 4.45 K/uL Red Blood Count 4.77 M/uL Hemoglobin 14.6 g/dL Hematocrit 44.8 % Mean Corpuscular Volume 93.9 fL Mean Corpuscular Hemoglobin 30.6 pg Mean Corpuscular Hemoglobin Concent 32.6 g/dl Platelet Count 216 K/uL Mean Platelet Volume 8.4 fL Neutrophils (%) (Auto) 58.9 % Lymphocytes (%) (Auto) 28.5 % Monocytes (%) (Auto) 7.4 % Eosinophils (%) (Auto) 4.3 % Basophils (%) (Auto) 0.7 % Neutrophils # (Auto) 2.62 K/uL Lymphocytes # (Auto) 1.27 K/uL Monocytes # (Auto) 0.33 K/uL Eosinophils # (Auto) 0.19 K/uL Basophils # (Auto) 0.03 K/uL RDW Standard Deviation 51.0 fL RDW Coefficient of Variation 14.9 % Immature Granulocyte % (Auto) 0.2 % Immature Granulocyte # (Auto) 0.01 K/uL Prothrombin Time 32.6 SECONDS Prothromb Time International Ratio 2.9 Sodium Level 141 mmol/L Potassium Level 3.9 mmol/L Chloride Level 110 mmol/L Carbon Dioxide Level 20 mmol/L Anion Gap 11.0 mmol/L Blood Urea Nitrogen 37 mg/dl Creatinine 3.00 mg/dl Est Creatinine Clear Calc Drug Dose 13.1 ml/min Estimated GFR () 15.9 Estimated GFR (Non- 13.7 BUN/Creatinine Ratio 12.2 Random Glucose 119 mg/dl Calcium Level 9.0 mg/dl Total Bilirubin 0.4 mg/dl Aspartate Amino Transf (AST/SGOT) 23 U/L Alanine Aminotransferase (ALT/SGPT) 37 U/L Alkaline Phosphatase 92 U/L Total Protein 8.8 gm/dl Albumin 4.0 gm/dl Globulin 4.8 gm/dl Albumin/Globulin Ratio 0.8 Urine Color YELLOW Urine Appearance CLOUDY Urine pH 6.0 Urine Specific [place] 1.020 Urine Protein 2+ Urine Glucose (UA) 1+ Urine Ketones TRACE Urine Occult Blood 2+ Urine Nitrite POS Urine Bilirubin NEG Urine Urobilinogen NEG Urine Leukocyte Esterase MODERATE Urine WBC (Auto) >30 /hpf Urine RBC (Auto) 10-30 /hpf Urine Hyaline Casts (Auto) 1-5 /lpf Urine Epithelial Cells (Auto) >30 /lpf Urine Bacteria (Auto) 4+ Urine Pathogenic Casts 5-10 GRANULAR CASTS /lpf Test 04/24/17 19:48 04/25/17 06:51 04/25/17 09:00 Bedside Glucose 163 mg/dl 98 mg/dl Prothrombin Time 26.8 SECONDS Prothromb Time International Ratio 2.4 Sodium Level 144 mmol/L Potassium Level 4.0 mmol/L Chloride Level 117 mmol/L Carbon Dioxide Level 19 mmol/L Anion Gap 8.0 mmol/L Blood Urea Nitrogen 33 mg/dl Creatinine 2.80 mg/dl Est Creatinine Clear Calc Drug Dose 14.0 ml/min Estimated GFR () 17.3 Estimated GFR (Non- 14.9 BUN/Creatinine Ratio 11.8 Random Glucose 74 mg/dl Calcium Level 7.7 mg/dl Total Creatine Kinase 77 U/L Assessment & Plan Patient with RENATO, right great toe infection with E. Coli, and possible GNB UTI. The patient has history of ESBL E. Coli UTI and Pseudomonal UTI. The patient has had some urinary frequency, but no dysuria, flank pain, or urgency. Question whether or not she needs treatment for GNB in urine, though with dirty UA and increased Creatinine, this could be due to recent abx administration versus UTI versus multifactorial. Will continue IV Cefepime pending urine culture results and improvement. She is also on IV Daptomycin as well right now , but do not feel she needs this- therefore, will D/C. We will follow. PROVIDER ADDENDUM: Patient examined and reviewed with Ms. Cardenas. Agree with above assessment.
--- NOTE | 2017-04-25 10:23 | Clinical Documentation Query ---
Dr. LOPEZ KATH : CLINICAL DOCUMENTATION QUERY Patient is an 86 year old female admitted for RENATO on CKD stage 4, UTI, and a "right great toe infection", not otherwise specified. Patient noted to follow at wound clinic. Wound nurse and ID consultations pending. Wound center notes from 04/15/17 included "Palacios grade 2 diabetic foot ulcer, right great toe". Please specify as clinically appropriate. Thank you. In your clinical opinion is this patient being managed for: ( x ) Palacios grade 2 diabetic foot ulcer, right great toe ( ) Other explanation of clinical findings (Please Explain) ( ) Unable to determine (Please Define) ( ) Need to Discuss ( ) Not Agree The medical record reflects the following clinical findings, treatment, and risk factors. Clinical Indicators: As above Treatment: WOCN, ID consultation, antibiotics, waffle boots, EHOB mattress Risk Factors: Age, DM type 2 Please clarify and document your clinical opinion in the progress notes and discharge summary. Terms such as "probable", "suspected", "likely", "questionable", "possible", or "still to be ruled out" are acceptable. IF IN AGREEMENT, YOU MUST DOCUMENT ABOVE DIAGNOSTIC STATEMENT IN DAILY PROGRESS NOTES AND DISCHARGE SUMMARY. This document is not part of the patient's record. Thank You, Erich White RN [phone]
--- NOTE | 2017-04-25 13:10 | Nephrology Consultation ---
Nephrology Consultation Date of Consultation: Apr 25, 2017. Attending Physician: Dr Terrell Requesting Physician: Dr Fiore Reason for Consultation: RENATO on CKD History of Present Illness 86 year old female w/ CKD4, AF on coumadin, CAD, systolic HF, past stroke, DM sent by PCP to ER after outpt labs showed creatinine of 3 up from baseline of 2. She was yesterday 7 days into 10 day course of bactrim for mgt of diabetic ulcer R great toe; she follows at the wound clinic and is known to Dr. Acuña per her report. 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 her urine cx this am is growing 2 GNR. She did endorse w/ admitting team some possibly decreased po intake on abtc d/t GI upset and increased urinary frequency. She had also been evaluated about a year ago for UTI / voiding sx by urology and was noted to have multiple ulcerative vaginal labial lesions for which FEE CLERK eval for possible BX was recommended; this eval did not occur. She denies knowledge of / pain from such lesions. She is currently receiving cefepime and daptomycin. Inf dzs has been consulted. This AM her creatinine is 2.8. She had no leukocytosis or lower bp or fever since presentation. She follows w/ Dr. Zamudio in CKD clinic. Past Medical/Surgical History Medical Problems: (1) Acute on chronic renal failure Status: Acute (2) Diabetic foot ulcer Status: Acute (3) Diabetic ulcer of right great toe Status: Acute -as per HPI -carotid stenosis -BL PVD nonobstructive Family History Diabetes mellitus Social History Smoking Status: Former Smoker (quit in her 20s) Alcohol Use: none Drug Use: none Marital Status: Housing Status: lives alone Occupation Status: retired Allergies Coded Allergies: Codeine (Verified Allergy, Intermediate, 04/24/17) Adhesives (Verified Allergy, Unknown, red;itchy skin, 04/24/17) Medications Current Inpatient Medications Medications (Trade) Dose Ordered Sig/Danisha Route Start Time Stop Time Status Last Admin Dose Admin Acetaminophen (Tylenol Tab) 650 mg Q4H PRN PO 04/24/17 17:30 05/24/17 17:29 Ondansetron HCl (Zofran Inj) 4 mg Q6H PRN IV 04/24/17 17:30 05/24/17 17:29 Sodium Chloride 1,000 ml @ 50 mls/hr Q20H IV 04/24/17 18:30 05/24/17 18:29 04/24/17 19:33 50 MLS/HR Insulin Aspart (novoLOG ASPART) SLIDING SCALE If C... ACHS SC 04/24/17 22:00 05/24/17 21:59 04/24/17 22:42 1 UNITS Glucose (Glucose 40% Gel) 15-30 GRAMS 15 GRAMS... UD PRN PO 04/24/17 17:45 05/24/17 17:44 Glucose (Glucose Chew Tab) 4-8 Tablets 4 Tabl... UD PRN PO 04/24/17 17:45 05/24/17 17:44 Dextrose (Dextrose 50% 50ML Syringe) 25-50ML OF 50% DW IV FOR... UD PRN IV 04/24/17 17:45 05/24/17 17:44 Glucagon (Glucagon Inj) 1 mg UD PRN SQ 04/24/17 17:45 05/24/17 17:44 Alprazolam (Xanax Tab) 0.25 mg BID PRN PO 04/24/17 18:00 05/24/17 17:59 04/24/17 22:31 0.25 MG Aspirin (Ecotrin Tab) 81 mg DAILY PO 04/25/17 08:00 05/25/17 08:59 Atorvastatin Calcium (Lipitor Tab) 20 mg QAM PO 04/25/17 08:00 05/25/17 08:59 Calcium/Vitamin D (Caltrate Plus Tab) 1 tab DAILY PO 04/25/17 08:00 05/25/17 08:59 Ferrous Sulfate (Feosol Tab) 325 mg TID PO 04/24/17 20:00 05/24/17 20:59 04/24/17 19:39 325 MG Fexofenadine HCl (Holly Tab) 180 mg DAILY PRN PO 04/24/17 18:00 05/24/17 17:59 Gabapentin (Neurontin Cap) 100 mg TID PO 04/24/17 20:00 05/24/17 20:59 04/24/17 19:41 100 MG Hydralazine HCl (Apresoline Tab) 25 mg BID PO 04/24/17 20:00 05/24/17 20:59 04/24/17 19:39 25 MG Insulin Glargine (Lantus Solostar Pen) 20 unit HS SC 04/24/17 21:00 05/24/17 20:59 04/24/17 22:43 20 UNIT Lactobacillus Acidophilus (Floranex Tab) 4 tab TIDM PO 04/24/17 20:00 05/24/17 19:59 04/24/17 19:43 4 TAB Levothyroxine Sodium (Synthroid Tab) 100 mcg DAILYBB PO 04/25/17 06:30 05/25/17 06:59 04/25/17 06:39 100 MCG Metoprolol Tartrate (Lopressor Tab) 25 mg QAM PO 04/25/17 08:00 05/25/17 08:59 Multivitamins/ Minerals (Multivitamin W/ Minerals Tab) 1 tab DAILY PO 04/25/17 08:00 05/25/17 08:59 Nitroglycerin (Nitrostat Tab) 0.4 mg UD PRN UT 04/24/17 18:00 05/24/17 17:59 Tramadol HCl (Ultram Tab) 50 mg Q8H PRN PO 04/24/17 18:00 05/24/17 17:59 Warfarin Sodium (Coumadin Tab) 2.5 mg DAILY@1600 PO 04/24/17 21:00 05/24/17 20:59 04/24/17 19:41 2.5 MG Pantoprazole Sodium (Protonix Tab) 40 mg QAM PO 04/25/17 08:00 05/25/17 08:59 Polyethylene (Miralax Powder Packet) 17 gm DAILY PO 04/25/17 08:00 05/25/17 08:59 Nystatin (Mycostatin Powder) 1 appln BID EXT 04/24/17 20:00 05/24/17 20:59 04/24/17 19:34 1 APPLN Cefepime HCl (Consult) 1 ea UD N/A 04/24/17 21:11 05/24/17 21:10 Daptomycin (Consult) 1 ea UD N/A 04/24/17 20:51 05/24/17 20:50 Daptomycin 350 mg/ Sodium Chloride 57 ml @ 120 mls/hr Q48H IV 04/24/17 21:00 05/04/17 20:59 04/24/17 21:59 120 MLS/HR Cefepime HCl 500 mg/Dextrose 105.65 ml @ 222.6 mls/hr DAILY@2000 IV 04/25/17 20:00 05/05/17 19:59 Home Meds and Scripts Medications Dose Route/Sig Max Daily Dose Days Date Category Dose Instructions Nystop (Nystatin) 45 Appln/15 Gm Powd 1 Appln EXT BID 04/24/17 Reported Novolog (Insulin Aspart) 100 Units/Ml Inj 0 SC UD 04/24/17 Reported sliding scale Miralax (Polyethylene Glycol 3350) 1 Pow Pow 17 Gm PO DAILY 04/24/17 Reported Caltrate 600 Plus (Calcium Carbonate-Vitamin D W/) 1 Tab Tab 1 Tab PO DAILY 04/24/17 Reported Centrum Silver Adult 50+ (Multiple Vitamins W/ Minerals) 1 Tab Tab 1 Tab PO DAILY 04/24/17 Reported Synthroid (Levothyroxine Sodium) 100 Mcg Tab 1 Tab PO DAILYBB 04/24/17 Reported Hydralazine HCl 25 Mg Tab 1 Tab PO BID 04/24/17 Reported Lasix (Furosemide) 20 Mg Tab 20 Mg PO DAILY 04/24/17 Reported Warfarin Sodium 5 Mg Tab 2.5 Mg PO QPM 90 04/24/17 Reported usually 5mg Saturday, Saturday, Saturday and Saturday and 2.5mg Saturday, and Saturday as of 04/23/17 taking 2.5mg for the remainder of the week Lantus Solostar (Insulin Glargine) 100 Unit/Ml Inj 30 Units SC HS 04/24/17 Reported Xanax (Alprazolam) 0.25 Mg Tab 0.25 Mg PO BID PRN 04/24/17 Reported Holly Allergy (Fexofenadine Hcl) 180 Mg Tab 1 Tab PO DAILY PRN 14 04/24/17 Reported Bactrim Ds 800MG/160MG (Trimethoprim/Sulfamethoxazole) Tab 1 Tab PO BID 04/18/17 Reported Ultram (Tramadol HCl) 50 Mg Tab 50 Mg PO Q8 PRN 10 7/27/16 Rx Lactinex (Lactobacillus) Chw 1 Tab PO TID 10/10/15 Reported Lipitor (Atorvastatin Calcium) 20 Mg Tab 20 Mg PO QAM 12/21/14 Reported Lopressor (Metoprolol Tartrate) 25 Mg Tab 25 Mg PO QAM 01/29/14 Reported Aspirin Ec (Aspirin) 81 Mg Tab 81 Mg PO DAILY 07/09/13 Reported Fe Tabs (Ferrous Sulfate) 325 Mg Tab 325 Mg PO TID 10/15/12 Reported Neurontin (Gabapentin) 100 Mg Cap 100 Mg PO TID 07/07/11 Reported Prilosec (Omeprazole) 20 Mg Capcr 20 Mg PO QAM 10/06/08 Reported Nitrostat (Nitroglycerin) 0.4 Mg Tab 0.4 Mg UT PRN 10/06/08 Reported ONE TAB UNDER TONGUE NEEDED FOR CHEST PAIN MAXIMUM 3 DOSES Review of Systems Constitutional: No weakness, No fatigue Eyes: No worsening of vision ENT: No hearing loss Respiratory: No cough, No shortness of breath Cardiac: No chest pain, No edema, No palpitations Abdomen: + nausea (small bit of N/ gi upset w/ meds), No vomiting, No diarrhea Musculoskeletal: No joint pain, No muscle pain Female : + urinary frequency (constant/ ongoing but ? worse with bactim on board), No dysuria, No hematuria, No vaginal discharge Neuro: No memory loss, No weakness Psych: No depression symptoms, No anxiety Heme: No abnormal bleeding/bruising Endo: No fatigue Skin: No rash, No itch Physical Exam Date Time Temp Pulse Resp B/P (MAP) Pulse Ox O2 Delivery O2 Flow Rate FiO2 04/25/17 08:13 36.5 61 18 143/82 (102) 98 Room Air 04/24/17 19:45 Room Air 04/24/17 18:00 36.8 64 18 153/73 (99) 98 Room Air 04/24/17 17:45 61 18 166/79 97 04/24/17 15:56 63 18 157/84 98 Room Air 04/24/17 13:50 69 18 188/73 98 Room Air 04/24/17 12:10 36.7 109 20 150/93 98 Room Air General Appearance: WD/WN, no apparent distress (lying flat on RA) Eyes: EOMI ENT: hearing grossly normal Neck: supple Respiratory/Chest: no respiratory distress, + decreased breath sounds Cardiovascular: regular rate, rhythm, no edema, + systolic murmur Abdomen: normal bowel sounds, non tender, soft (no llamas) Extremities: no pedal edema, + pertinent finding (bl feet in boots) Neurologic/Psych: alert, normal mood/affect, oriented x 3 Skin: no jaundice, warm/dry, no rash Diagnostics Last 24 Hours Test 04/24/17 12:49 04/24/17 12:50 04/24/17 13:50 04/24/17 17:55 Bedside Glucose 123 mg/dl 135 mg/dl White Blood Count 4.45 K/uL Red Blood Count 4.77 M/uL Hemoglobin 14.6 g/dL Hematocrit 44.8 % Mean Corpuscular Volume 93.9 fL Mean Corpuscular Hemoglobin 30.6 pg Mean Corpuscular Hemoglobin Concent 32.6 g/dl Platelet Count 216 K/uL Mean Platelet Volume 8.4 fL Neutrophils (%) (Auto) 58.9 % Lymphocytes (%) (Auto) 28.5 % Monocytes (%) (Auto) 7.4 % Eosinophils (%) (Auto) 4.3 % Basophils (%) (Auto) 0.7 % Neutrophils # (Auto) 2.62 K/uL Lymphocytes # (Auto) 1.27 K/uL Monocytes # (Auto) 0.33 K/uL Eosinophils # (Auto) 0.19 K/uL Basophils # (Auto) 0.03 K/uL RDW Standard Deviation 51.0 fL RDW Coefficient of Variation 14.9 % Immature Granulocyte % (Auto) 0.2 % Immature Granulocyte # (Auto) 0.01 K/uL Prothrombin Time 32.6 SECONDS Prothromb Time International Ratio 2.9 Sodium Level 141 mmol/L Potassium Level 3.9 mmol/L Chloride Level 110 mmol/L Carbon Dioxide Level 20 mmol/L Anion Gap 11.0 mmol/L Blood Urea Nitrogen 37 mg/dl Creatinine 3.00 mg/dl Est Creatinine Clear Calc Drug Dose 13.1 ml/min Estimated GFR () 15.9 Estimated GFR (Non- 13.7 BUN/Creatinine Ratio 12.2 Random Glucose 119 mg/dl Calcium Level 9.0 mg/dl Total Bilirubin 0.4 mg/dl Aspartate Amino Transf (AST/SGOT) 23 U/L Alanine Aminotransferase (ALT/SGPT) 37 U/L Alkaline Phosphatase 92 U/L Total Protein 8.8 gm/dl Albumin 4.0 gm/dl Globulin 4.8 gm/dl Albumin/Globulin Ratio 0.8 Urine Color YELLOW Urine Appearance CLOUDY Urine pH 6.0 Urine Specific Pax 1.020 Urine Protein 2+ Urine Glucose (UA) 1+ Urine Ketones TRACE Urine Occult Blood 2+ Urine Nitrite POS Urine Bilirubin NEG Urine Urobilinogen NEG Urine Leukocyte Esterase MODERATE Urine WBC (Auto) >30 /hpf Urine RBC (Auto) 10-30 /hpf Urine Hyaline Casts (Auto) 1-5 /lpf Urine Epithelial Cells (Auto) >30 /lpf Urine Bacteria (Auto) 4+ Urine Pathogenic Casts 5-10 GRANULAR CASTS /lpf Test 04/24/17 19:48 04/25/17 06:51 Bedside Glucose 163 mg/dl Prothrombin Time 26.8 SECONDS Prothromb Time International Ratio 2.4 Sodium Level 144 mmol/L Potassium Level 4.0 mmol/L Chloride Level 117 mmol/L Carbon Dioxide Level 19 mmol/L Anion Gap 8.0 mmol/L Blood Urea Nitrogen 33 mg/dl Creatinine 2.80 mg/dl Est Creatinine Clear Calc Drug Dose 14.0 ml/min Estimated GFR () 17.3 Estimated GFR (Non- 14.9 BUN/Creatinine Ratio 11.8 Random Glucose 74 mg/dl Calcium Level 7.7 mg/dl Total Creatine Kinase 77 U/L Diagnostic Radiology: Renal u/s > no hydronephrosis, multiple renal cysts TTE 01/2016 in EPIC EF 55%, grade 2 diastolic dysfunction, moderate TR; RV function wnl Assessment & Plan 86 y/o F w/ DM, stroke hx, PAF, CAD, CKD 4 admitted for RENATO on ckd w/ presenting creatinine of 3 on bactrim and with recurrent / complicated UTI versus bacteriuria. RENATO on CKD 4 -no indication for acute dialysis -ensure she is on renal diet -daily bmp -recommend continuing low rate of IVF provided no respiratory distress -minimal improvement off bactrim >> bactrim prevents tubular creatinine secretion; will take time to recover; may have ATN component as well -need I/O pls at least to evaluate for oliguria or not though doubt she has it Complicated UTI/bacteriuria -recommend groin/ pelvic exam to consider whether ulcerated labial lesions still present; very important these be followed up as inpt or outpt -f/u inf dzs recommendations >> this is a challenging pt who I suspect will most always have + urine cxs and broadly resistant bacteria >> challenge is whether/when to treat and with what agent Appreciate consult; will follow with you. care coordinated w/ Dr Terrell.
[2017-04-25] MEDS ORDERED: NURSING VERBAL MED ORDER ONE (15:00)
[2017-04-25 15:11] VITALS: BP 109/58; PULSE 60; TEMP 36.6; O2SAT 96
--- NOTE | 2017-04-25 16:26 | Progress Note ---
Internal Med Progress Note Date of Service: Apr 25, 2017. Provider Documentation: SUBJECTIVE: offers no complain no fever or chills no shortness of breath OBJECTIVE: Vital Signs-as noted below Exam: General-no sign of distress Eyes-sclera non icteric ENT-NAD Neck-no JVD Lungs-CTA Heart-regular S1/S2 Abdomen-soft, non tender -foul smelling drainage in lower abdominal skin fold and bilateral groin fold Extremities-dry wound on tip of right great toe Neuro-no focal neurological deficit Lab data as noted below. ASSESSMENT & PLAN: RENATO ON CKD STAGE IV Cr mildly improved with IV fluids Creat is 3.0 from baseline 2 Likely due to Bactrim Renal US- No hydronephrosis. Mild renal cortical thinning and increased renal echogenicity. Multiple renal cysts. Consult nephrology- appreciate input form Dr. Ramey UTI History of recurrent UTI with prior urine cultures growing ESBL E. coli and pseudomonas. But latest culture in january 2017 growing e.coli sensitive to Rocephin and cefepime( In Epic). Afebrile, no leukocytosis urine culture- gram negative bacilli X2 organisms Consulted ID, patient known to Dr. Acuña -appreciate input form ID team -Daptomycin D/leanne pt will continue on IV Cefepime pending isolation and sensitivity report DIABETIC NON HEALING WOUND INFECTION OF RT GREAT TOE: f/u with wound clinic no active drainage seen Bactrim D/leanne for RENATO cont on Cefepime ID consulted wound care consult PAF ON COUMADIN Rate is controlled Continue metoprolol continue Coumadin HX CAD S/P STENT Stable, no anginal symptoms Continue aspirin, statin, beta loren CHRONIC SYSTOLIC CHF Euvolemic to mildly dry Hold Lasix given Monitor volume status DM TYPE 2 Decrease Lantus due to reported symptomatic hypoglycemia at home Novolog sliding scale Monitor BSG AC HS A1c was 6.4 on 04/23/17 HYPERTENSION Continue metoprolol and hydralazine Monitor History of CVA Continue aspirin and statin HYPOTHYROIDISM Continue levothyroxine ALISSA Intolerant to CPAP DEEP VEIN THROMBOSIS PROPHYLAXIS: Continue Coumadin DISPOSITION discharge home when medically stable will need home health visiting nurse Vital Signs: Date Time Temp Pulse Resp B/P (MAP) Pulse Ox O2 Delivery O2 Flow Rate FiO2 04/25/17 15:11 36.6 60 20 109/58 (75) 96 Room Air 04/25/17 09:10 59 148/74 (98) 04/25/17 08:13 36.5 61 18 143/82 (102) 98 Room Air 04/24/17 19:45 Room Air 04/24/17 18:00 36.8 64 18 153/73 (99) 98 Room Air 04/24/17 17:45 61 18 166/79 97 Lab Results: Results Past 24 Hours Test 04/24/17 17:55 04/24/17 19:48 04/25/17 06:51 04/25/17 09:00 Range/Units Bedside Glucose 135 163 98 70-90 mg/dl Prothrombin Time 26.8 9.0-12.0 SECONDS Prothromb Time International Ratio 2.4 0.9-1.1 Sodium Level 144 136-145 mmol/L Potassium Level 4.0 3.5-5.1 mmol/L Chloride Level 117 98-107 mmol/L Carbon Dioxide Level 19 21-32 mmol/L Anion Gap 8.0 3-11 mmol/L Blood Urea Nitrogen 33 7-18 mg/dl Creatinine 2.80 0.60-1.20 mg/dl Est Creatinine Clear Calc Drug Dose 14.0 ml/min Estimated GFR () 17.3 Estimated GFR (Non- 14.9 BUN/Creatinine Ratio 11.8 10-20 Random Glucose 74 70-99 mg/dl Calcium Level 7.7 8.5-10.1 mg/dl Total Creatine Kinase 77 26-192 U/L Test 04/25/17 11:16 Range/Units Bedside Glucose 153 70-90 mg/dl
[2017-04-25] MEDS: WARFARIN SOD 2.5 MG TAB PO SCH (18:05)
[2017-04-25] MEDS ORDERED: CEFEPIME IV 500 MG in DEXTROSE 5% 100ML 100 ML IV SCH (20:00)
[2017-04-25] MEDS: INSULIN GLARGINE SOLOSTAR 100 UNITS/ML 3 ML PEN SC SCH (21:29)
[2017-04-25 21:35] VITALS: BP 169/77; PULSE 60
[2017-04-25 23:09] VITALS: BP 143/75; PULSE 62; TEMP 36.6; O2SAT 98
[2017-04-26] MEDS: LEVOTHYROXINE 100 MCG TAB PO SCH (06:11)
[2017-04-26 07:41] VITALS: BP 145/85; PULSE 71; TEMP 36.3; O2SAT 97
[2017-04-26] MEDS: NYSTATIN POWDER 15GM BTL EXT SCH ×2 (08:55→20:36)
[2017-04-26] MEDS: FERROUS SULFATE 325 MG TAB PO SCH ×3 (08:55→20:36)
[2017-04-26] MEDS: ATORVASTATIN 20 MG TAB PO SCH (08:55)
[2017-04-26] MEDS: CEROVITE ADV FORMULA TAB PO SCH (08:55)
[2017-04-26] MEDS: CALCIUM 600MG + VIT D 400 IU TAB PO SCH (08:56)
[2017-04-26] MEDS: GABAPENTIN 100 MG CAP PO SCH ×3 (08:56→20:34)
[2017-04-26] MEDS: METOPROLOL TARTRATE 25 MG TAB PO SCH (08:57)
[2017-04-26] MEDS: PANTOprazole SOD 40 MG TAB PO SCH (08:57)
[2017-04-26] MEDS: LACTOBACILLUS ACIDOPHILUS (FLORANEX) TAB PO SCH ×3 (08:57→16:00)
[2017-04-26] MEDS: POLYETHYLENE (MIRALAX) 17 GM PACK PO SCH (09:00)
[2017-04-26] MEDS: INSULIN ASPART 100 UNITS/ML 3 ML PEN SC SCH ×4 (09:05→20:37)
--- NOTE | 2017-04-26 10:19 | Progress Note ---
Internal Med Progress Note Date of Service: Apr 26, 2017. Provider Documentation: SUBJECTIVE: anxious today ,as not sure what is going on with her explained renal failure -which is improving, urinary tract infection all of the conditions are treatable and she is getting better pt felt much reassured denies of any symptom of chills, always feels cold at her baseline appetite remains poor no complain of SOB , no chest discomfort no symptoms of dysuria no abdominal pain , nausea or diarrhea OBJECTIVE: Vital Signs-as noted below Exam: General-no sign of distress Eyes-sclera non icteric ENT-NAD Neck-no JVD Lungs-CTA Heart-regular S1/S2 Abdomen-soft, non tender -nani lower abdominal skin fold and bilateral groin fold Extremities-dry wound on tip of right great toe Neuro-no focal neurological deficit Lab data as noted below. ASSESSMENT & PLAN: RENATO ON CKD STAGE IV Creat is 3.0 from baseline 2 Likely due to Bactrim with dehydration /poor PO intake Renal US- No hydronephrosis. Mild renal cortical thinning and increased renal echogenicity. Multiple renal cysts. Consult nephrology- appreciate input form Dr. Ramey pt will continued with iV fluid , will defer fluid rate to Nephrology Cr improved 2.5 yesterday will follow AM Labs ordered for daily Am PRP -avoid Nephrotoxin -contrast studies /NSAID's UTI History of recurrent UTI with prior urine cultures growing ESBL E. coli and pseudomonas. But latest culture in january 2017 growing e.coli sensitive to Rocephin and cefepime( In Epic). Afebrile, no leukocytosis urine culture- E.coli -ESBL , multi drug resistant -Cefepime d/leanne -resistant -started on IV Invanz Consulted ID, patient known to Dr. Acuña/Alize Raymond PA-C -appreciate input form ID team -given no urinary symptom /no clinical sign of infection -extermination inspector abx with PICC line may not be appropriate in this scenario -will cont Invanz while in hospital -cont to follow improvement of renal function -plan to DC home with Oral Macrodantin -sensitive -will have close follow up with ID in office DIABETIC NON HEALING WOUND INFECTION OF RT GREAT TOE: f/u with wound clinic no active drainage or evidence of infection noted wound care consult appreciated pt will continue to follow up at wound clinic as out patient PAF ON COUMADIN Rate is controlled Continue metoprolol continue Coumadin HX CAD S/P STENT Stable, no anginal symptoms Continue aspirin, statin, beta loren CHRONIC SYSTOLIC CHF Euvolemic to mildly dry Hold Lasix for RENATO OK with IV fluids DM TYPE 2 Decrease Lantus due to reported symptomatic hypoglycemia at home Novolog sliding scale Monitor BSG AC HS A1c was 6.4 on 04/23/17 pharmacy glycemic consult requested HYPERTENSION Continue metoprolol and hydralazine Monitor History of CVA Continue aspirin and statin HYPOTHYROIDISM Continue levothyroxine ALISSA Intolerant to CPAP DEEP VEIN THROMBOSIS PROPHYLAXIS: Continue Coumadin DISPOSITION discharge home when medically stable PT/OT eval requested will need home health visiting nurse Vital Signs: Date Time Temp Pulse Resp B/P (MAP) Pulse Ox O2 Delivery O2 Flow Rate FiO2 04/26/17 07:41 36.3 71 18 145/85 (105) 97 Room Air 04/25/17 23:59 Room Air 04/25/17 23:09 36.6 62 18 143/75 (97) 98 Room Air 04/25/17 21:35 60 169/77 (107) 04/25/17 16:00 Room Air 04/25/17 15:11 36.6 60 20 109/58 (75) 96 Room Air Lab Results: Results Past 24 Hours Test 04/25/17 11:16 04/25/17 16:35 04/25/17 20:09 04/26/17 08:00 Range/Units Bedside Glucose 153 111 146 96 70-90 mg/dl Test 04/26/17 09:22 04/26/17 09:26 Range/Units
[2017-04-26] MEDS: ERTAPENEM IV 1 GM in SODIUM CHLOR 0.9% AD-VAN 50ML 50 ML IV SCH (10:57)
--- NOTE | 2017-04-26 11:47 | Infectious Disease Progress Nt ---
Progress Note Date of Service Apr 26, 2017. Subjective Pt evaluation today including: conversation w/ patient, physical exam, chart review, lab review, review of studies, conversation w/ senior health consultant, review of inpatient medication list Patient is feeling better this morning. Her Creatinine yesterday was 2.80, and labs today are pending. Urine culture is growing ESBL E. Coli x 2. She is currently on IV Cefepime. I discussed this patient with Dr. Terrell and Dr. Trinidad. The patient continues to have some mild urinary frequency, but no urgency, dysuria, pelvic pressure, abdominal pain, or low back pain. All Other Systems: Reviewed and Negative Medications Current Inpatient Medications Medications (Trade) Dose Ordered Sig/Danisha Route Start Time Stop Time Status Last Admin Dose Admin Acetaminophen (Tylenol Tab) 650 mg Q4H PRN PO 04/24/17 17:30 05/24/17 17:29 Ondansetron HCl (Zofran Inj) 4 mg Q6H PRN IV 04/24/17 17:30 05/24/17 17:29 Insulin Aspart (novoLOG ASPART) SLIDING SCALE If C... ACHS SC 04/24/17 22:00 05/24/17 21:59 04/26/17 09:05 2 UNITS Glucose (Glucose 40% Gel) 15-30 GRAMS 15 GRAMS... UD PRN PO 04/24/17 17:45 05/24/17 17:44 Glucose (Glucose Chew Tab) 4-8 Tablets 4 Tabl... UD PRN PO 04/24/17 17:45 05/24/17 17:44 Dextrose (Dextrose 50% 50ML Syringe) 25-50ML OF 50% DW IV FOR... UD PRN IV 04/24/17 17:45 05/24/17 17:44 Glucagon (Glucagon Inj) 1 mg UD PRN SQ 04/24/17 17:45 05/24/17 17:44 Alprazolam (Xanax Tab) 0.25 mg BID PRN PO 04/24/17 18:00 05/24/17 17:59 04/25/17 21:44 0.25 MG Atorvastatin Calcium (Lipitor Tab) 20 mg QAM PO 04/25/17 08:00 05/25/17 08:59 04/26/17 08:55 20 MG Calcium/Vitamin D (Caltrate Plus Tab) 1 tab DAILY PO 04/25/17 08:00 05/25/17 08:59 04/26/17 08:56 1 TAB Ferrous Sulfate (Feosol Tab) 325 mg TID PO 04/24/17 20:00 05/24/17 20:59 04/26/17 08:55 325 MG Fexofenadine HCl (Holly Tab) 180 mg DAILY PRN PO 04/24/17 18:00 05/24/17 17:59 Gabapentin (Neurontin Cap) 100 mg TID PO 04/24/17 20:00 05/24/17 20:59 04/26/17 08:56 100 MG Hydralazine HCl (Apresoline Tab) 25 mg BID PO 04/24/17 20:00 05/24/17 20:59 04/26/17 08:56 25 MG Insulin Glargine (Lantus Solostar Pen) 20 unit HS SC 04/24/17 21:00 05/24/17 20:59 04/25/17 21:29 20 UNIT Lactobacillus Acidophilus (Floranex Tab) 4 tab TIDM PO 04/24/17 20:00 05/24/17 19:59 04/26/17 08:57 4 TAB Levothyroxine Sodium (Synthroid Tab) 100 mcg DAILYBB PO 04/25/17 06:30 05/25/17 06:59 04/26/17 06:11 100 MCG Metoprolol Tartrate (Lopressor Tab) 25 mg QAM PO 04/25/17 08:00 05/25/17 08:59 04/26/17 08:57 25 MG Multivitamins/ Minerals (Multivitamin W/ Minerals Tab) 1 tab DAILY PO 04/25/17 08:00 05/25/17 08:59 04/26/17 08:55 1 TAB Nitroglycerin (Nitrostat Tab) 0.4 mg UD PRN UT 04/24/17 18:00 05/24/17 17:59 Tramadol HCl (Ultram Tab) 50 mg Q8H PRN PO 04/24/17 18:00 05/24/17 17:59 Warfarin Sodium (Coumadin Tab) 2.5 mg DAILY@1600 PO 04/24/17 21:00 05/24/17 20:59 04/25/17 18:05 2.5 MG Pantoprazole Sodium (Protonix Tab) 40 mg QAM PO 04/25/17 08:00 05/25/17 08:59 04/26/17 08:57 40 MG Polyethylene (Miralax Powder Packet) 17 gm DAILY PO 04/25/17 08:00 05/25/17 08:59 04/25/17 09:08 17 GM Nystatin (Mycostatin Powder) 1 appln BID EXT 04/24/17 20:00 05/24/17 20:59 04/26/17 08:55 1 APPLN Aspirin (Ecotrin Tab) 81 mg DAILY@1999 PO 04/25/17 20:00 05/25/17 19:59 04/25/17 20:00 81 MG Ertapenem 1 gm/ Sodium Chloride 50 ml @ 120 mls/hr Q24H IV 04/26/17 10:00 05/06/17 09:59 04/26/17 10:57 120 MLS/HR Objective Vital Signs Date Time Temp Pulse Resp B/P (MAP) Pulse Ox O2 Delivery O2 Flow Rate FiO2 04/26/17 07:41 36.3 71 18 145/85 (105) 97 Room Air 04/25/17 23:59 Room Air 04/25/17 23:09 36.6 62 18 143/75 (97) 98 Room Air 04/25/17 21:35 60 169/77 (107) 04/25/17 16:00 Room Air 04/25/17 15:11 36.6 60 20 109/58 (75) 96 Room Air Physical Exam General Appearance: WD/WN, no apparent distress Eyes: normal inspection, sclerae normal ENT: hearing grossly normal Neck: supple, trachea midline Respiratory/Chest: chest non-tender, lungs clear, normal breath sounds, no respiratory distress, no accessory muscle use Cardiovascular: regular rate, rhythm, no murmur Abdomen: normal bowel sounds, non tender, soft Extremities: normal range of motion Neurologic/Psychiatric: alert, normal mood/affect Skin: normal color, warm/dry, no rash Laboratory Results RUN DATE: 04/26/17 [facility] LAB PAGE 1 RUN TIME: 1051 Specimen Inquiry PATIENT: MANE LEONG LOC: [id number] U # : [id number] AGE/SX: 86/F ROOM: [facility] REG : 04/24/[address]: Nyla Terrell M.D. : 1930 BED: 1 DIS : STATUS: ADM IN TLOC: SPEC #: [id number] DAVID: 04/24/17 STATUS: COMP REQ #: [id number] RECD: 04/24/[address]: Carleen Talbot DO SOURCE: UR, CC ENTR: 04/24/[address] [facility] [address]: Lamonte Thorne D.O. SPDESC: ORDERED: CULTURE URCLEAN Procedure Result Verified Site URINE CULTURE Final 04/26/17-1051 Organism 1 ESCHERICHIA COLI COLONY COUNT >100,000 CFU/ml SENS SENSITIVITY TO FOLLOW Organism 2 ESCHERICHIA COLI#2 COLONY COUNT >100,000 CFU/ml SENS NO SENSITIVITY TO FOLLOW SENSITIVITY RESULT INDICATES AN ORGANISM WITH AN EXTENDED SPECTRUM BETA LACTAMASE.THIS IS CONSIDERED A MULTIDRUG RESISTANT ORGANISM.PHONED TO -EDILSON (MICHAEL THORNTON)AND (MELANI SMITH) ON 04/26/17 AT 0754 BY Catracho Rocha. Results were verbalized back to ANKUSH. 1. ESCHERICHIA COLI Target Route Dose RX AB Cost M.I.C. IQ ------ ----- ------ -- ------ -------- - ------ TRIMET/SULFA R >2/38 AMPICILLIN R >16 AMPICILLIN/SUL R >16/8 CEFAZOLIN R >16 CEFOTAXIME R >32 CEFTRIAXONE R >32 CEFEPIME R >16 CEFUROXIME R >16 IMIPENEM S <=1 GENTAMICIN S <=4 TOBRAMYCIN S <=4 AMIKACIN S <=16 CIPROFLOXACIN R >2 LEVOFLOXACIN R >4 ERTAPENEM S <=1 NITROFURANTOIN S <=32 PIP/TAZO S <=16 S = SENSITIVE I = INTERMEDIATE R = RESISTANT Last 24 Hours Test 04/25/17 16:35 04/25/17 20:09 04/26/17 08:00 04/26/17 09:22 Bedside Glucose 111 mg/dl 146 mg/dl 96 mg/dl Test 04/26/17 09:26 Assessment and Plan Patient with RENATO, right great toe infection with E. Coli, and ESBL E. Coli growing in her urine. After discussion with the patient, Dr. Terrell, and Dr. Trinidad, it is unclear of whether or not this patient's symptoms are consistent with true UTI. She typically gets dysuria, pelvic pressure, abdominal pain, etc. Therefore, after further discussion, decided that the patient will be treated with IV Ertapenem pending discharge but then can transition to PO Macrobid. She can follow up with me as an outpatient if her symptoms worsen. If IV therapy is necessary, can set up as outpatient. Patient and other providers are agreeable to this plan. We will follow up as outpatient. Thanks PROVIDER ADDENDUM: Patient reviewed with Ms. Cardenas. Agree with above assessment.
[2017-04-26] MEDS ORDERED: SODIUM CHLORIDE 0.9% 1000ML 1,000 ML IV SCH (12:30)
--- NOTE | 2017-04-26 12:37 | Progress Note ---
Progress Note Date of Service Apr 26, 2017. Progress Note ATTENDING NOTE : pt's Urology eval on 02/10/16 noted: ulcerative lesion on post fourchette and left labia Commercial Fishing Vessel Operator referral been made pt was not able to see Commercial Fishing Vessel Operator appointment scheduled due to transportation issue D/w helper steel fabrication Commercial Fishing Vessel Operator Dr Wong Talamantes- there is not much scope inpatient evaluation pt will need formal Pelvic exam in Commercial Fishing Vessel Operator clinic and possible biopsy and culture Appointment scheduled for with Commercial Fishing Vessel Operator Dr Back on 05/10/17 at [facility] pt is updated willing to follow up with Commercial Fishing Vessel Operator in clinic
[2017-04-26 12:52] LABS: INR 1.9 (0.9-1.1); PROTHROMBIN TIME (PATIENT) 20.7 SECONDS (9.0-12.0)
[2017-04-26 13:08] LABS: BUN/CREATININE RATIO 11.5 (10-20); CALCIUM 8.7 mg/dl (8.5-10.1); CREATININE 2.9 mg/dl (0.60-1.20); POTASSIUM 4.5 mmol/L (3.5-5.1)
[2017-04-26] MEDS: WARFARIN SOD 2.5 MG TAB PO SCH (16:00)
[2017-04-26 16:30] VITALS: BP 118/56; PULSE 62; TEMP 36.4; O2SAT 99
--- NOTE | 2017-04-26 16:48 | Nephrology Progress Note ---
Nephrology Progress Note Date of Service: Apr 26, 2017. Subjective no c/o dypsnea or voiding sx. some upset stomach still at times. no pain Objective Date Time Temp Pulse Resp B/P (MAP) Pulse Ox O2 Delivery O2 Flow Rate FiO2 04/26/17 07:41 36.3 71 18 145/85 (105) 97 Room Air 04/25/17 23:59 Room Air 04/25/17 23:09 36.6 62 18 143/75 (97) 98 Room Air 04/25/17 21:35 60 169/77 (107) 04/25/17 16:00 Room Air 04/25/17 15:11 36.6 60 20 109/58 (75) 96 Room Air Physical Exam: General Appearance: WD/WN, up in bed on RA Eyes: EOMI ENT: hearing grossly normal Neck: supple Respiratory/Chest: no respiratory distress, + decreased breath sounds Cardiovascular: regular rate, rhythm, no edema, + systolic murmur Abdomen: normal bowel sounds, non tender, soft (no llamas) Extremities: no pedal edema, R foot in wound boot, L in walking shoe Neurologic/Psych: alert, normal mood/affect, oriented x 3 Skin: no jaundice, warm/dry, no rash Current Inpatient Medications Medications (Trade) Dose Ordered Sig/Danisha Route Start Time Stop Time Status Last Admin Dose Admin Acetaminophen (Tylenol Tab) 650 mg Q4H PRN PO 04/24/17 17:30 05/24/17 17:29 Ondansetron HCl (Zofran Inj) 4 mg Q6H PRN IV 04/24/17 17:30 05/24/17 17:29 Insulin Aspart (novoLOG ASPART) SLIDING SCALE If C... ACHS SC 04/24/17 22:00 05/24/17 21:59 04/26/17 09:05 2 UNITS Glucose (Glucose 40% Gel) 15-30 GRAMS 15 GRAMS... UD PRN PO 04/24/17 17:45 05/24/17 17:44 Glucose (Glucose Chew Tab) 4-8 Tablets 4 Tabl... UD PRN PO 04/24/17 17:45 05/24/17 17:44 Dextrose (Dextrose 50% 50ML Syringe) 25-50ML OF 50% DW IV FOR... UD PRN IV 04/24/17 17:45 05/24/17 17:44 Glucagon (Glucagon Inj) 1 mg UD PRN SQ 04/24/17 17:45 05/24/17 17:44 Alprazolam (Xanax Tab) 0.25 mg BID PRN PO 04/24/17 18:00 05/24/17 17:59 04/25/17 21:44 0.25 MG Atorvastatin Calcium (Lipitor Tab) 20 mg QAM PO 04/25/17 08:00 05/25/17 08:59 04/26/17 08:55 20 MG Calcium/Vitamin D (Caltrate Plus Tab) 1 tab DAILY PO 04/25/17 08:00 05/25/17 08:59 04/26/17 08:56 1 TAB Ferrous Sulfate (Feosol Tab) 325 mg TID PO 04/24/17 20:00 05/24/17 20:59 04/26/17 08:55 325 MG Fexofenadine HCl (Holly Tab) 180 mg DAILY PRN PO 04/24/17 18:00 05/24/17 17:59 Gabapentin (Neurontin Cap) 100 mg TID PO 04/24/17 20:00 05/24/17 20:59 04/26/17 08:56 100 MG Hydralazine HCl (Apresoline Tab) 25 mg BID PO 04/24/17 20:00 05/24/17 20:59 04/26/17 08:56 25 MG Insulin Glargine (Lantus Solostar Pen) 20 unit HS SC 04/24/17 21:00 05/24/17 20:59 04/25/17 21:29 20 UNIT Lactobacillus Acidophilus (Floranex Tab) 4 tab TIDM PO 04/24/17 20:00 05/24/17 19:59 04/26/17 08:57 4 TAB Levothyroxine Sodium (Synthroid Tab) 100 mcg DAILYBB PO 04/25/17 06:30 05/25/17 06:59 04/26/17 06:11 100 MCG Metoprolol Tartrate (Lopressor Tab) 25 mg QAM PO 04/25/17 08:00 05/25/17 08:59 04/26/17 08:57 25 MG Multivitamins/ Minerals (Multivitamin W/ Minerals Tab) 1 tab DAILY PO 04/25/17 08:00 05/25/17 08:59 04/26/17 08:55 1 TAB Nitroglycerin (Nitrostat Tab) 0.4 mg UD PRN UT 04/24/17 18:00 05/24/17 17:59 Tramadol HCl (Ultram Tab) 50 mg Q8H PRN PO 04/24/17 18:00 05/24/17 17:59 Warfarin Sodium (Coumadin Tab) 2.5 mg DAILY@1600 PO 04/24/17 21:00 05/24/17 20:59 04/25/17 18:05 2.5 MG Pantoprazole Sodium (Protonix Tab) 40 mg QAM PO 04/25/17 08:00 05/25/17 08:59 04/26/17 08:57 40 MG Polyethylene (Miralax Powder Packet) 17 gm DAILY PO 04/25/17 08:00 05/25/17 08:59 04/25/17 09:08 17 GM Nystatin (Mycostatin Powder) 1 appln BID EXT 04/24/17 20:00 05/24/17 20:59 04/26/17 08:55 1 APPLN Cefepime HCl (Consult) 1 ea UD N/A 04/24/17 21:11 05/24/17 21:10 Aspirin (Ecotrin Tab) 81 mg DAILY@2000 PO 04/25/17 20:00 05/25/17 19:59 04/25/17 20:00 81 MG Ertapenem 1 gm/ Sodium Chloride 50 ml @ 120 mls/hr Q24H IV 04/26/17 09:30 05/06/17 09:29 UNV Last 24 Hours Test 04/25/17 11:16 04/25/17 16:35 04/25/17 20:09 04/26/17 08:00 Bedside Glucose 153 mg/dl 111 mg/dl 146 mg/dl 96 mg/dl Test 04/26/17 09:22 04/26/17 09:26 Assessment & Plan 86 y/o F w/ DM, stroke hx, PAF, CAD, CKD 4 admitted for RENATO on ckd w/ presenting creatinine of 3 on bactrim and with recurrent / complicated UTI versus bacteriuria. RENATO on CKD 4 -labs from today pending>creat unchanged and w/ worsening metabolic acidosis will change NS to 1/2 NS w/ 75 mEq sodium bicarb same rate -no indication for acute dialysis -ordered renal diet -daily bmp -minimal improvement off bactrim >> bactrim prevents tubular creatinine secretion; will take time to recover; may have ATN component as well -need I/O pls at least to evaluate for oliguria or not though doubt she has it Complicated UTI/bacteriuria -for outpt clinical registered nurse eval of previously reported (1 year ago) ulcerated labial lesions -f/u inf dzs recommendations >> this is a challenging pt who I suspect will most always have + urine cxs and broadly resistant bacteria >> challenge is whether/when to treat and with what agent Appreciate consult; will follow with you. Care coordinated w/ Dr Terrell.
[2017-04-26] MEDS: SODIUM BICARBONATE 8.4% INJ 75 MEQ in SODIUM CHLORIDE 0.45% 1000ML 1,000 ML IV SCH (17:38)
[2017-04-26] MEDS: ASPIRIN 81 MG ECTAB PO SCH (20:36)
[2017-04-26] MEDS: INSULIN GLARGINE SOLOSTAR 100 UNITS/ML 3 ML PEN SC SCH (20:39)
[2017-04-26] MEDS: ALPRAZOLAM 0.25 MG TAB PO PRN (20:40)
[2017-04-26 22:53] VITALS: BP 119/78; PULSE 60; TEMP 36.4; O2SAT 96
[2017-04-27] MEDS: LEVOTHYROXINE 100 MCG TAB PO SCH (06:00)
[2017-04-27] MEDS: INSULIN ASPART 100 UNITS/ML 3 ML PEN SC SCH ×4 (06:30→20:22)
[2017-04-27 07:21] VITALS: BP 124/63; PULSE 60; TEMP 36.3; O2SAT 98
[2017-04-27 07:24] LABS: INR 1.8 (0.9-1.1); PROTHROMBIN TIME (PATIENT) 19.9 SECONDS (9.0-12.0)
[2017-04-27 07:49] LABS: CALCIUM 8.1 mg/dl (8.5-10.1); CREATININE 2.5 mg/dl (0.60-1.20); POTASSIUM 3.8 mmol/L (3.5-5.1)
[2017-04-27] MEDS: SODIUM BICARBONATE 8.4% INJ 75 MEQ in SODIUM CHLORIDE 0.45% 1000ML 1,000 ML IV SCH (08:05)
[2017-04-27] MEDS: NYSTATIN POWDER 15GM BTL EXT SCH ×2 (08:06→20:20)
[2017-04-27] MEDS: LACTOBACILLUS ACIDOPHILUS (FLORANEX) TAB PO SCH ×3 (08:07→17:48)
[2017-04-27] MEDS: CALCIUM 600MG + VIT D 400 IU TAB PO SCH (08:07)
[2017-04-27] MEDS: METOPROLOL TARTRATE 25 MG TAB PO SCH (08:08)
[2017-04-27] MEDS: GABAPENTIN 100 MG CAP PO SCH ×3 (08:08→20:21)
[2017-04-27] MEDS: CEROVITE ADV FORMULA TAB PO SCH (08:08)
[2017-04-27] MEDS: PANTOprazole SOD 40 MG TAB PO SCH (08:09)
[2017-04-27] MEDS: FERROUS SULFATE 325 MG TAB PO SCH ×3 (08:10→20:20)
[2017-04-27] MEDS: ATORVASTATIN 20 MG TAB PO SCH (08:10)
[2017-04-27] MEDS: POLYETHYLENE (MIRALAX) 17 GM PACK PO SCH (08:10)
[2017-04-27] MEDS: ERTAPENEM IV 1 GM in SODIUM CHLOR 0.9% AD-VAN 50ML 50 ML IV SCH (11:06)
[2017-04-27] MEDS: ALPRAZOLAM 0.25 MG TAB PO PRN ×2 (11:08→20:47)
[2017-04-27] MEDS: SODIUM BICARBONATE 8.4% INJ 75 MEQ in DEXTROSE 5% 1000ML 1,000 ML IV SCH (15:03)
[2017-04-27] MEDS: WARFARIN SOD 2.5 MG TAB PO SCH (15:05)
--- NOTE | 2017-04-27 15:09 | Nephrology Progress Note ---
Nephrology Progress Note Date of Service: Apr 27, 2017. Subjective no c/o dypsnea or voiding sx. denies thirst/drinking as much as she can. no pain Objective Date Time Temp Pulse Resp B/P (MAP) Pulse Ox O2 Delivery O2 Flow Rate FiO2 04/27/17 08:20 Room Air 04/27/17 07:21 36.3 60 16 124/63 (83) 98 Room Air 04/26/17 23:59 Room Air 04/26/17 22:53 36.4 60 18 119/78 (92) 96 Room Air 04/26/17 16:30 36.4 62 18 118/56 (76) 99 Room Air 04/26/17 16:15 Room Air Physical Exam: General Appearance: WD/WN, up in chair on RA Eyes: EOMI ENT: hearing grossly normal Neck: supple Respiratory/Chest: no respiratory distress, + decreased breath sounds Cardiovascular: regular rate, rhythm, no edema, + systolic murmur Abdomen: normal bowel sounds, non tender, soft (no llamas) Extremities: no pedal edema, R foot in wound boot, L in walking shoe Neurologic/Psych: alert, normal mood/affect, oriented x 3 Skin: no jaundice, warm/dry, no rash Current Inpatient Medications Medications (Trade) Dose Ordered Sig/Danisha Route Start Time Stop Time Status Last Admin Dose Admin Acetaminophen (Tylenol Tab) 650 mg Q4H PRN PO 04/24/17 17:30 05/24/17 17:29 Ondansetron HCl (Zofran Inj) 4 mg Q6H PRN IV 04/24/17 17:30 05/24/17 17:29 Insulin Aspart (novoLOG ASPART) SLIDING SCALE If C... ACHS SC 04/24/17 22:00 05/24/17 21:59 04/27/17 13:14 2 UNITS Glucose (Glucose 40% Gel) 15-30 GRAMS 15 GRAMS... UD PRN PO 04/24/17 17:45 05/24/17 17:44 Glucose (Glucose Chew Tab) 4-8 Tablets 4 Tabl... UD PRN PO 04/24/17 17:45 05/24/17 17:44 Dextrose (Dextrose 50% 50ML Syringe) 25-50ML OF 50% DW IV FOR... UD PRN IV 04/24/17 17:45 05/24/17 17:44 Glucagon (Glucagon Inj) 1 mg UD PRN SQ 04/24/17 17:45 05/24/17 17:44 Alprazolam (Xanax Tab) 0.25 mg BID PRN PO 04/24/17 18:00 05/24/17 17:59 04/27/17 11:08 0.25 MG Atorvastatin Calcium (Lipitor Tab) 20 mg QAM PO 04/25/17 08:00 05/25/17 08:59 04/27/17 08:10 20 MG Calcium/Vitamin D (Caltrate Plus Tab) 1 tab DAILY PO 04/25/17 08:00 05/25/17 08:59 04/27/17 08:07 1 TAB Ferrous Sulfate (Feosol Tab) 325 mg TID PO 04/24/17 20:00 05/24/17 20:59 04/27/17 13:12 325 MG Fexofenadine HCl (Holly Tab) 180 mg DAILY PRN PO 04/24/17 18:00 05/24/17 17:59 Gabapentin (Neurontin Cap) 100 mg TID PO 04/24/17 20:00 05/24/17 20:59 04/27/17 13:11 100 MG Hydralazine HCl (Apresoline Tab) 25 mg BID PO 04/24/17 20:00 05/24/17 20:59 04/27/17 08:07 25 MG Insulin Glargine (Lantus Solostar Pen) 20 unit HS SC 04/24/17 21:00 05/24/17 20:59 04/26/17 20:39 20 UNIT Lactobacillus Acidophilus (Floranex Tab) 4 tab TIDM PO 04/24/17 20:00 05/24/17 19:59 04/27/17 13:10 4 TAB Levothyroxine Sodium (Synthroid Tab) 100 mcg DAILYBB PO 04/25/17 06:30 05/25/17 06:59 04/27/17 06:00 100 MCG Metoprolol Tartrate (Lopressor Tab) 25 mg QAM PO 04/25/17 08:00 05/25/17 08:59 04/27/17 08:08 25 MG Multivitamins/ Minerals (Multivitamin W/ Minerals Tab) 1 tab DAILY PO 04/25/17 08:00 05/25/17 08:59 04/27/17 08:08 1 TAB Nitroglycerin (Nitrostat Tab) 0.4 mg UD PRN UT 04/24/17 18:00 05/24/17 17:59 Tramadol HCl (Ultram Tab) 50 mg Q8H PRN PO 04/24/17 18:00 05/24/17 17:59 Warfarin Sodium (Coumadin Tab) 2.5 mg DAILY@1600 PO 04/24/17 21:00 05/24/17 20:59 04/27/17 15:05 2.5 MG Pantoprazole Sodium (Protonix Tab) 40 mg QAM PO 04/25/17 08:00 05/25/17 08:59 04/27/17 08:09 40 MG Polyethylene (Miralax Powder Packet) 17 gm DAILY PO 04/25/17 08:00 05/25/17 08:59 04/27/17 08:10 17 GM Nystatin (Mycostatin Powder) 1 appln BID EXT 04/24/17 20:00 05/24/17 20:59 04/27/17 08:06 1 APPLN Aspirin (Ecotrin Tab) 81 mg DAILY@2000 PO 04/25/17 20:00 05/25/17 19:59 04/26/17 20:36 81 MG Ertapenem 1 gm/ Sodium Chloride 50 ml @ 120 mls/hr Q24H IV 04/26/17 10:00 05/06/17 09:59 04/27/17 11:06 120 MLS/HR Sodium Bicarbonate 75 meq/Dextrose 1,075 ml @ 75 mls/hr [id number] IV 04/27/17 14:30 05/27/17 14:29 04/27/17 15:03 75 MLS/HR Last 24 Hours Test 04/26/17 17:07 04/26/17 20:10 04/27/17 07:03 04/27/17 07:51 Bedside Glucose 131 mg/dl 127 mg/dl 78 mg/dl Prothrombin Time 19.9 SECONDS Prothromb Time International Ratio 1.8 Sodium Level 146 mmol/L Potassium Level 3.8 mmol/L Chloride Level 119 mmol/L Carbon Dioxide Level 19 mmol/L Anion Gap 8.0 mmol/L Blood Urea Nitrogen 30 mg/dl Creatinine 2.50 mg/dl Est Creatinine Clear Calc Drug Dose 15.7 ml/min Estimated GFR () 19.8 Estimated GFR (Non- 17.1 BUN/Creatinine Ratio 12.0 Random Glucose 88 mg/dl Calcium Level 8.1 mg/dl Test 04/27/17 11:49 Bedside Glucose 144 mg/dl Assessment & Plan 86 y/o F w/ DM, stroke hx, PAF, CAD, CKD 4 admitted for RENATO on ckd w/ presenting creatinine of 3 on bactrim and with recurrent / complicated UTI versus bacteriuria. RENATO on CKD 4, improving w/ ongoing mild metabolic acidosis -lwill change / NS w/ 75 mEq sodium bicarb to D5W w/ 75 mEq sodium bicarb same rate -no indication for acute dialysis -cont renal diet -daily bmp -minimal improvement off bactrim >> bactrim prevents tubular creatinine secretion; will take time to recover; may have ATN component as well -need I/O pls at least to evaluate for oliguria or not though doubt she has it Complicated UTI/bacteriuria -for outpt warp trucker eval of previously reported (1 year ago) ulcerated labial lesions -f/u inf dzs recommendations >> this is a challenging pt who I suspect will most always have + urine cxs and broadly resistant bacteria >> challenge is whether/when to treat and with what agent Appreciate consult; will follow with you. Care coordinated w/ Dr Terrell.
[2017-04-27 15:40] VITALS: BP 105/65; PULSE 60; TEMP 36.3; O2SAT 98
--- NOTE | 2017-04-27 19:11 | Progress Note ---
Internal Med Progress Note Date of Service: Apr 27, 2017. Provider Documentation: SUBJECTIVE: sitting up on chair , very pleasant offers no complain no SOB , no nausea no GI or symptom OBJECTIVE: Vital Signs-as noted below Exam: General-no sign of distress Eyes-sclera non icteric ENT-NAD Neck-no JVD Lungs-CTA Heart-regular S1/S2 Abdomen-soft, non tender -nani lower abdominal skin fold and bilateral groin fold Extremities-dry wound on tip of right great toe Neuro-no focal neurological deficit Lab data as noted below. ASSESSMENT & PLAN: RENATO ON CKD STAGE IV Creat is 3.0 from baseline 2 Likely due to Bactrim with dehydration /poor PO intake Renal US- No hydronephrosis. Mild renal cortical thinning and increased renal echogenicity. Multiple renal cysts. Consult nephrology- appreciate input form Dr. 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 coli and pseudomonas. But latest culture in january 2017 growing e.coli sensitive to Rocephin and cefepime( In Epic). Afebrile, no leukocytosis urine culture- E.coli -ESBL , multi drug resistant -Cefepime d/leanne -resistant -started on IV Invanz Consulted ID, patient known to Dr. Acuña/Alize Raymond PA-C -appreciate input form ID team -given no urinary symptom /no clinical sign of infection -fdc abx with PICC line may not be appropriate in this scenario -will cont Invanz while in hospital -cont to follow improvement of renal function -plan to DC home with Oral Macrodantin -sensitive -will have close follow up with ID in office DIABETIC NON HEALING WOUND INFECTION OF RT GREAT TOE: f/u with wound clinic no active drainage or evidence of infection noted wound care consult appreciated pt will continue to follow up at wound clinic as out patient LABIAL LESION; pt's Urology eval on 02/10/16 noted: ulcerative lesion on post fourchette and left labia Hydro Plant Site Manager referral been made pt was not able to see Hydro Plant Site Manager appointment scheduled due to transportation issue D/w vocational ed instructor Hydro Plant Site Manager Dr Wong Talamantes- there is not much scope inpatient evaluation pt will need formal Pelvic exam in Hydro Plant Site Manager clinic and possible biopsy and culture Appointment scheduled for with Hydro Plant Site Manager Dr Back on 05/10/17 @ 10: 30 AM at [facility] pt updated willing to follow up with Hydro Plant Site Manager in clinic ON 05/10/17 PAF ON COUMADIN Rate is controlled Continue metoprolol continue Coumadin HX CAD S/P STENT Stable, no anginal symptoms Continue aspirin, statin, beta loren CHRONIC SYSTOLIC CHF Euvolemic to mildly dry Hold Lasix for RENATO OK with IV fluids per Nephrology DM TYPE 2 Decrease Lantus due to reported symptomatic hypoglycemia at home Novolog sliding scale Monitor BSG AC HS A1c was 6.4 on 04/23/17 pharmacy glycemic consult requested HYPERTENSION Continue metoprolol and hydralazine Monitor History of CVA Continue aspirin and statin HYPOTHYROIDISM Continue levothyroxine ALISSA Intolerant to CPAP DEEP VEIN THROMBOSIS PROPHYLAXIS: Continue Coumadin DISPOSITION discharge home when medically stable PT/OT eval requested already active with home health visiting nurse Vital Signs: Date Time Temp Pulse Resp B/P (MAP) Pulse Ox O2 Delivery O2 Flow Rate FiO2 04/28/17 07:54 36.3 59 16 154/74 (100) 96 Room Air 04/28/17 00:05 Room Air 04/27/17 23:04 36.3 61 18 183/82 (115) 99 Room Air 04/27/17 20:45 60 145/55 (85) 04/27/17 20:05 Room Air 04/27/17 16:00 Room Air 04/27/17 15:40 36.3 60 18 105/65 (78) 98 Room Air Lab Results: Results Past 24 Hours Test 04/27/17 11:49 04/27/17 16:39 04/27/17 19:47 04/27/17 21:36 Range/Units Bedside Glucose 144 180 104 150 70-90 mg/dl Test 04/28/17 08:04 04/28/17 08:14 Range/Units Prothrombin Time 18.0 9.0-12.0 SECONDS Prothromb Time International Ratio 1.6 0.9-1.1 Sodium Level 145 136-145 mmol/L Potassium Level 3.8 3.5-5.1 mmol/L Chloride Level 115 98-107 mmol/L Carbon Dioxide Level 22 21-32 mmol/L Anion Gap 8.0 3-11 mmol/L Blood Urea Nitrogen 32 7-18 mg/dl Creatinine 2.80 0.60-1.20 mg/dl Est Creatinine Clear Calc Drug Dose 14.0 ml/min Estimated GFR () 17.3 Estimated GFR (Non- 14.9 BUN/Creatinine Ratio 11.4 10-20 Random Glucose 208 70-99 mg/dl Calcium Level 8.0 8.5-10.1 mg/dl Bedside Glucose 203 70-90 mg/dl
[2017-04-27] MEDS: ASPIRIN 81 MG ECTAB PO SCH (20:20)
[2017-04-27] MEDS: INSULIN GLARGINE SOLOSTAR 100 UNITS/ML 3 ML PEN SC SCH (20:29)
[2017-04-27 20:45] VITALS: BP 145/55; PULSE 60
[2017-04-27 23:04] VITALS: BP 183/82; PULSE 61; TEMP 36.3; O2SAT 99
[2017-04-28] MEDS: SODIUM BICARBONATE 8.4% INJ 75 MEQ in DEXTROSE 5% 1000ML 1,000 ML IV SCH (04:41)
[2017-04-28 07:54] VITALS: BP 154/74; PULSE 59; TEMP 36.3; O2SAT 96
[2017-04-28 08:59] LABS: INR 1.6 (0.9-1.1)
[2017-04-28] MEDS: NYSTATIN POWDER 15GM BTL EXT SCH ×2 (09:05→20:32)
[2017-04-28] MEDS: INSULIN ASPART 100 UNITS/ML 3 ML PEN SC SCH ×4 (09:05→20:33)
[2017-04-28] MEDS: GABAPENTIN 100 MG CAP PO SCH ×3 (09:05→20:32)
[2017-04-28] MEDS: FERROUS SULFATE 325 MG TAB PO SCH ×3 (09:06→20:31)
[2017-04-28] MEDS: ATORVASTATIN 20 MG TAB PO SCH (09:06)
[2017-04-28] MEDS: LACTOBACILLUS ACIDOPHILUS (FLORANEX) TAB PO SCH ×3 (09:07→18:17)
[2017-04-28] MEDS: PANTOprazole SOD 40 MG TAB PO SCH (09:07)
[2017-04-28] MEDS: LEVOTHYROXINE 100 MCG TAB PO SCH (09:08)
[2017-04-28] MEDS: METOPROLOL TARTRATE 25 MG TAB PO SCH (09:09)
[2017-04-28] MEDS: POLYETHYLENE (MIRALAX) 17 GM PACK PO SCH (09:09)
[2017-04-28] MEDS: CEROVITE ADV FORMULA TAB PO SCH (09:10)
[2017-04-28] MEDS: CALCIUM 600MG + VIT D 400 IU TAB PO SCH (09:10)
[2017-04-28] MEDS: ERTAPENEM IV 1 GM in SODIUM CHLOR 0.9% AD-VAN 50ML 50 ML IV SCH (09:14)
[2017-04-28 09:22] LABS: BUN/CREATININE RATIO 11.4 (10-20); CREATININE 2.8 mg/dl (0.60-1.20); POTASSIUM 3.8 mmol/L (3.5-5.1)
[2017-04-28] MEDS: ALPRAZOLAM 0.25 MG TAB PO PRN ×2 (09:27→20:43)
--- NOTE | 2017-04-28 14:15 | Discharge Instructions ---
Discharge Instructions Date of Service Apr 28, 2017. Admission Reason for Admission: Lalo (Acute Kidney Injury) Discharge Discharge Diagnosis / Problem: ACUTE RENAL FAILUE /UTI Discharge Goals Goal(s): Improve disease control, Diagnostic testing Activity Recommendations Activity Limitations: resume your previous activity . Instructions / Follow-Up Instructions / Follow-Up HOSPITAL FOLLOW UP 05/02/2017 @ 11.[address] Landa General Internal Medicine [facility] DR HARO'S SCHEDULE IS FULL CHIEF PAYROLL CLERK FOLLOW UP 05/10/2017 @ 10:[address] Davin Talamantes MD [facility] Gynecology/Obstetrics LAB WORK : BASIC METABOLIC PANEL ON 05/02/17 CARDIOLOGY FOLLOW UP 05/01/2017 @ 1:15 PM Primitivo Santos PA-C Cardiology, [facility]\\ FOLLOW UP AT ID CLINIC WITH NAVIN LAMBERT IN 1-2 WEEKS FOLLOW UP AT THE WOUND CLINIC PER SCHEDULE Current Hospital Diet Patient's current hospital diet: Diabetes Type 2 Diet, Renal Diet Discharge Diet Recommended Diet: Diabetes Type 2 Diet, Renal Diet Pending Studies Studies pending at discharge: yes List of pending studies: BASIC METABOLIC PANEL ON 05/03/17 Medical Emergencies . Who to Call and When: Medical Emergencies: If at any time you feel your situation is an emergency, please call 911 immediately. . Non-Emergent Contact Non-Emergency issues call your: Primary Care Provider . . "Provider Documentation" section prepared by Nyla Terrell. . VTE Core Measure Inpt VTE Proph given/why not?: Warfarin (Coumadin)
[2017-04-28 15:05] VITALS: BP 130/84; PULSE 60; TEMP 36.4; O2SAT 98
[2017-04-28] MEDS: WARFARIN SOD 2.5 MG TAB PO SCH (15:38)
--- NOTE | 2017-04-28 18:58 | Progress Note ---
Internal Med Progress Note Date of Service: Apr 28, 2017. Provider Documentation: SUBJECTIVE: offers no discomfort no fever or chills OBJECTIVE: Vital Signs-as noted below Exam: General-no sign of distress Eyes-sclera non icteric ENT-NAD Neck-no JVD Lungs-CTA Heart-regular S1/S2 Abdomen-soft, non tender -nani lower abdominal skin fold and bilateral groin fold Extremities-dry wound on tip of right great toe Neuro-no focal neurological deficit Lab data as noted below. ASSESSMENT & PLAN: RENATO ON CKD STAGE IV Creat is 3.0 from baseline 2 Likely due to Bactrim with dehydration /poor PO intake Renal US- No hydronephrosis. Mild renal cortical thinning and increased renal echogenicity. Multiple renal cysts. Consult nephrology- appreciate input form Dr. Ramey Hco3 22 today ; HCo3 gtt D/leanne Cr continues to improve -avoid Nephrotoxin -contrast studies /NSAID's UTI History of recurrent UTI with prior urine cultures growing ESBL E. coli and pseudomonas. But latest culture in january 2017 growing e.coli sensitive to Rocephin and cefepime( In Epic). Afebrile, no leukocytosis urine culture- E.coli -ESBL , multi drug resistant -Cefepime d/leanne -resistant -started on IV Invanz Consulted ID, patient known to Dr. Acuña/Alize Raymond PA-C -appreciate input form ID team -given no urinary symptom /no clinical sign of infection -rodent exterminator abx with PICC line may not be appropriate in this scenario -will cont Invanz while in hospital -cont to follow improvement of renal function -plan to DC home with Oral Macrodantin -sensitive -will have close follow up with ID in office DIABETIC NON HEALING WOUND INFECTION OF RT GREAT TOE: f/u with wound clinic no active drainage or evidence of infection noted wound care consult appreciated pt will continue to follow up at wound clinic as out patient LABIAL LESION; pt's Urology eval on 02/10/16 noted: ulcerative lesion on post fourchette and left labia Therapy Coordinator referral been made pt was not able to see Therapy Coordinator appointment scheduled due to transportation issue D/w combat information center officer Therapy Coordinator Dr Wong Talamantes- there is not much scope inpatient evaluation pt will need formal Pelvic exam in Therapy Coordinator clinic and possible biopsy and culture Appointment scheduled for with Therapy Coordinator Dr Back on 05/10/17 @ 10: 30 AM at [facility] pt updated willing to follow up with Therapy Coordinator in clinic ON 05/10/17 PAF ON COUMADIN Rate is controlled Continue metoprolol continue Coumadin HX CAD S/P STENT Stable, no anginal symptoms Continue aspirin, statin, beta loren CHRONIC SYSTOLIC CHF Euvolemic to mildly dry Hold Lasix for RENATO OK with IV fluids per Nephrology DM TYPE 2 Decrease Lantus due to reported symptomatic hypoglycemia at home Novolog sliding scale Monitor BSG AC HS A1c was 6.4 on 04/23/17 pharmacy glycemic consult requested HYPERTENSION Continue metoprolol and hydralazine Monitor History of CVA Continue aspirin and statin HYPOTHYROIDISM Continue levothyroxine ALISSA Intolerant to CPAP DEEP VEIN THROMBOSIS PROPHYLAXIS: Continue Coumadin DISPOSITION possible discharge home tomorrow PT/OT eval requested already active with home health visiting nurse Vital Signs: Date Time Temp Pulse Resp B/P (MAP) Pulse Ox O2 Delivery O2 Flow Rate FiO2 04/28/17 16:32 Room Air 04/28/17 15:05 36.4 60 21 130/84 (99) 98 Room Air 04/28/17 07:54 36.3 59 16 154/74 (100) 96 Room Air 04/28/17 00:05 Room Air 04/27/17 23:04 36.3 61 18 183/82 (115) 99 Room Air 04/27/17 20:45 60 145/55 (85) 04/27/17 20:05 Room Air Lab Results: Results Past 24 Hours Test 04/27/17 19:47 04/27/17 21:36 04/28/17 08:04 04/28/17 08:14 Range/Units Bedside Glucose 104 150 203 70-90 mg/dl Prothrombin Time 18.0 9.0-12.0 SECONDS Prothromb Time International Ratio 1.6 0.9-1.1 Sodium Level 145 136-145 mmol/L Potassium Level 3.8 3.5-5.1 mmol/L Chloride Level 115 98-107 mmol/L Carbon Dioxide Level 22 21-32 mmol/L Anion Gap 8.0 3-11 mmol/L Blood Urea Nitrogen 32 7-18 mg/dl Creatinine 2.80 0.60-1.20 mg/dl Est Creatinine Clear Calc Drug Dose 14.0 ml/min Estimated GFR () 17.3 Estimated GFR (Non- 14.9 BUN/Creatinine Ratio 11.4 10-20 Random Glucose 208 70-99 mg/dl Calcium Level 8.0 8.5-10.1 mg/dl Test 04/28/17 11:42 04/28/17 16:22 Range/Units Bedside Glucose 149 160 70-90 mg/dl
[2017-04-28] MEDS: ASPIRIN 81 MG ECTAB PO SCH (20:31)
[2017-04-28] MEDS: INSULIN GLARGINE SOLOSTAR 100 UNITS/ML 3 ML PEN SC SCH (20:36)
[2017-04-28 23:12] VITALS: BP 123/80; PULSE 60; TEMP 36.4; O2SAT 96
[2017-04-29] MEDS: LEVOTHYROXINE 100 MCG TAB PO SCH (06:00)
[2017-04-29 06:39] LABS: INR 1.4 (0.9-1.1); PROTHROMBIN TIME (PATIENT) 15.7 SECONDS (9.0-12.0)
[2017-04-29 07:09] LABS: CALCIUM 8.3 mg/dl (8.5-10.1); CREATININE 2.7 mg/dl (0.60-1.20); POTASSIUM 4.1 mmol/L (3.5-5.1)
[2017-04-29 07:11] VITALS: BP 144/73; PULSE 59; TEMP 36.4; O2SAT 99
[2017-04-29] MEDS: INSULIN ASPART 100 UNITS/ML 3 ML PEN SC SCH ×2 (09:00→12:49)
[2017-04-29] MEDS: FERROUS SULFATE 325 MG TAB PO SCH ×2 (09:11→14:25)
[2017-04-29] MEDS: LACTOBACILLUS ACIDOPHILUS (FLORANEX) TAB PO SCH ×2 (09:11→12:47)
[2017-04-29] MEDS: CEROVITE ADV FORMULA TAB PO SCH (09:11)
[2017-04-29] MEDS: METOPROLOL TARTRATE 25 MG TAB PO SCH (09:12)
[2017-04-29] MEDS: PANTOprazole SOD 40 MG TAB PO SCH (09:13)
[2017-04-29] MEDS: ATORVASTATIN 20 MG TAB PO SCH (09:13)
[2017-04-29] MEDS: GABAPENTIN 100 MG CAP PO SCH ×2 (09:13→14:26)
[2017-04-29] MEDS: POLYETHYLENE (MIRALAX) 17 GM PACK PO SCH (09:14)
[2017-04-29] MEDS: CALCIUM 600MG + VIT D 400 IU TAB PO SCH (09:14)
[2017-04-29] MEDS: NYSTATIN POWDER 15GM BTL EXT SCH (09:15)
[2017-04-29] MEDS: ALPRAZOLAM 0.25 MG TAB PO PRN (09:25)
[2017-04-29] MEDS ORDERED: ERTAPENEM IV 500 MG in SODIUM CHLORIDE 0.9% 50 ML IV SCH (10:00)
[2017-04-29 13:20] VITALS: BP 144/73; PULSE 59; TEMP 36.4; O2SAT 99
--- NOTE | 2017-04-29 23:07 | Progress Note ---
Internal Med Progress Note Date of Service: Apr 29, 2017. Provider Documentation: SUBJECTIVE: Feels fine appetite normal no fever or chills eager to be discharged home today OBJECTIVE: Vital Signs-as noted below Exam: General-no sign of distress Eyes-sclera non icteric ENT-NAD Neck-no JVD Lungs-CTA Heart-regular S1/S2 Abdomen-soft, non tender -nani lower abdominal skin fold and bilateral groin fold Extremities-dry wound on tip of right great toe Neuro-no focal neurological deficit Lab data as noted below. ASSESSMENT & PLAN: RENATO ON CKD STAGE IV improved Creat is 3.0 from baseline 2 Likely due to Bactrim with dehydration /poor PO intake Renal US- No hydronephrosis. Mild renal cortical thinning and increased renal echogenicity. Multiple renal cysts. Consult nephrology- appreciate input form Dr. Ramey Cr continues to improve -avoid Nephrotoxin -contrast studies /NSAID's will need out pt Lab work /BMP to be monitored UTI History of recurrent UTI with prior urine cultures growing ESBL E. coli and pseudomonas. But latest culture in january 2017 growing e.coli sensitive to Rocephin and cefepime( In Epic). Afebrile, no leukocytosis urine culture- E.coli -ESBL , multi drug resistant -Cefepime d/leanne -resistant -started on IV Invanz Consulted ID, patient known to Dr. Acuña/Alize Raymond PA-C -appreciate input form ID team -given no urinary symptom /no clinical sign of infection -fdc abx with PICC line may not be appropriate in this scenario -was treated with IV Invanz while in hospital -no further abx treatment indicated on discharge -will have close follow up with ID in office DIABETIC NON HEALING WOUND INFECTION OF RT GREAT TOE: f/u with wound clinic no active drainage or evidence of infection noted wound care consult appreciated pt will continue to follow up at wound clinic as out patient LABIAL LESION; pt's Urology eval on 02/10/16 noted: ulcerative lesion on post fourchette and left labia Plumbing And Heating Contractor referral been made pt was not able to see Plumbing And Heating Contractor appointment scheduled due to transportation issue D/w orthotic/prosthetic practitioner Plumbing And Heating Contractor Dr Wong Talamantes- there is not much scope inpatient evaluation pt will need formal Pelvic exam in Plumbing And Heating Contractor clinic and possible biopsy and culture Appointment scheduled for with Plumbing And Heating Contractor Dr Back on 05/10/17 @ 10: 30 AM at [facility] pt updated willing to follow up with Plumbing And Heating Contractor in clinic ON 05/10/17 PAF ON COUMADIN Rate is controlled Continue metoprolol continue Coumadin HX CAD S/P STENT Stable, no anginal symptoms Continue aspirin, statin, beta loren CHRONIC SYSTOLIC CHF Euvolemic to mildly dry Hold Lasix for RENATO OK with IV fluids per Nephrology DM TYPE 2 Decrease Lantus due to reported symptomatic hypoglycemia at home Novolog sliding scale Monitor BSG AC HS A1c was 6.4 on 04/23/17 pharmacy glycemic consult requested HYPERTENSION Continue metoprolol and hydralazine Monitor History of CVA Continue aspirin and statin HYPOTHYROIDISM Continue levothyroxine ALISSA Intolerant to CPAP DEEP VEIN THROMBOSIS PROPHYLAXIS: Continue Coumadin DISPOSITION stable to be discharged home today Vital Signs: Date Time Temp Pulse Resp B/P (MAP) Pulse Ox O2 Delivery O2 Flow Rate FiO2 04/29/17 13:20 36.4 59 16 99 Room Air 04/29/17 08:30 Room Air 04/29/17 07:11 36.4 59 16 144/73 (96) 99 Room Air 04/29/17 00:05 Room Air 04/28/17 23:12 36.4 60 18 123/80 (94) 96 Room Air Lab Results: Results Past 24 Hours Test 04/29/17 06:20 04/29/17 07:42 04/29/17 11:53 Range/Units Prothrombin Time 15.7 9.0-12.0 SECONDS Prothromb Time International Ratio 1.4 0.9-1.1 Sodium Level 145 136-145 mmol/L Potassium Level 4.1 3.5-5.1 mmol/L Chloride Level 114 98-107 mmol/L Carbon Dioxide Level 21 21-32 mmol/L Anion Gap 10.0 3-11 mmol/L Blood Urea Nitrogen 30 7-18 mg/dl Creatinine 2.70 0.60-1.20 mg/dl Est Creatinine Clear Calc Drug Dose 14.5 ml/min Estimated GFR () 18.0 Estimated GFR (Non- 15.6 BUN/Creatinine Ratio 11.0 10-20 Random Glucose 136 70-99 mg/dl Calcium Level 8.3 8.5-10.1 mg/dl Bedside Glucose 119 162 70-90 mg/dl
--- NOTE | 2017-04-29 23:09 | Discharge Summary ---
Discharge Summary Date of Service Apr 29, 2017. Discharge Summary Admission Date: Apr 24, 2017 at 16:33 Discharge Date: Apr 29, 2017 Discharge Disposition: Home with services Principal Diagnosis: ACUTE RENAL FAILURE /UTI Procedures: RENAL ULTRASOUND CLINICAL HISTORY: Acute on chronic kidney disease. COMPARISON STUDY: CT of the abdomen and pelvis October 06, 2008. TECHNIQUE: Sonography of the kidneys and the urinary bladder was performed. FINDINGS: There is no hydronephrosis. The right kidney measures 9.6 x 5.1 x 5.5 cm and the left measures 9 x 4.1 x 5.1 cm. Numerous anechoic lesions are consistent with cysts, measuring up to 1.7 cm. There is mild renal cortical thinning. No calculi or solid renal masses were identified by sonography. Neither ureteral jet was identified. IMPRESSION: 1. No hydronephrosis. 2. Mild renal cortical thinning and increased renal echogenicity. 3. Multiple renal cysts. Consultations: ID NEPHROLOGY Medication Reconciliation Continued Medications: Alprazolam (Xanax) 0.25 Mg Tab 0.25 MG PO BID PRN for Anxiety Aspirin (Aspirin Ec) 81 Mg Tab 81 MG PO DAILY Atorvastatin (Lipitor) 20 Mg Tab 20 MG PO QAM, TAB Calcium Carbonate-Vitamin D W/ (Caltrate 600 Plus) 1 Tab Tab 1 TAB PO DAILY, TAB Ferrous Sulfate (Fe Tabs) 325 Mg Tab 325 MG PO TID for GMG, TAB Fexofenadine Hcl (Holly Allergy) 180 Mg Tab 1 TAB PO DAILY PRN for allergies for 14 Days, #14 TAB 2 Refills Furosemide (Lasix) 20 Mg Tab 20 MG PO DAILY Gabapentin (Neurontin) 100 Mg Cap 100 MG PO TID, 0 Refills Hydralazine HCl (Hydralazine HCl) 25 Mg Tab 1 TAB PO BID Insulin Aspart (Novolog) 100 Units/Ml Inj 0 SC UD sliding scale Insulin Glargine (Lantus Solostar) 100 Unit/Ml Inj 30 UNITS SC HS, PEN Lactobacillus (Lactinex) Chw 1 TAB PO TID, CHW Levothyroxine Sodium (Synthroid) 100 Mcg Tab 1 TAB PO DAILYBB Metoprolol Tartrate (Lopressor) (Lopressor) 25 Mg Tab 25 MG PO QAM, TAB Multiple Vitamins W/ Minerals (Centrum Silver Adult 50+) 1 Tab Tab 1 TAB PO DAILY Nitroglycerin (Nitrostat) 0.4 Mg Tab 0.4 MG UT PRN, 0 Refills ONE TAB UNDER TONGUE NEEDED FOR CHEST PAIN MAXIMUM 3 DOSES Nystatin (Nystop) 45 Appln/15 Gm Powd 1 APPLN EXT BID Omeprazole (Prilosec) 20 Mg Capcr 20 MG PO QAM, 0 Refills Polyethylene Glycol 3350 (Miralax) 1 Pow Pow 17 GM PO DAILY, #527 GM Tramadol (Ultram) 50 Mg Tab 50 MG PO Q8 PRN for Pain for 10 Days, #30 TAB Warfarin Sodium (Warfarin Sodium) 5 Mg Tab 2.5 MG PO QPM for 90 Days, TAB 1 Refill usually 5mg Saturday, Saturday, Saturday and Saturday and 2.5mg Saturday, and Saturday as of 04/23/17 taking 2.5mg for the remainder of the week Discontinued Medications: Sulfa/Trimethoprim (Bactrim Ds 800MG/160MG) Tab 1 TAB PO BID, #20 TAB 1 Refill Referrals At Discharge Follow up Referrals: Cotton Converter Referral - 05/01/17 with Primitivo Santos PA-C Scientific Systems Analyst Referral - 05/10/17 with Canan. Kim MD Infectious Disease - Within 1-2 Weeks with Alize Lambert .COLEEN Physician Referral - 05/03/17 with Lamonte Thorne D.O. Admission Information HPI (per Admitting provider): This is an 86 year old female with PMH of CKD stage IV, AF on Coumadin, s/p pacemaker, CAD, systolic CHF, hx CVA, hypertension, DM 2, and other problems listed below who was sent to the ED by PCP Dr. Thorne for abnormal labs. Routine labs yesterday showed creatinine increased to 3.0 from baseline of 2 and therefore patient was called and told to come to ER. Patient has been on Bactrim for infected right great toe ulcer for past seven days with resolution of erythema and swelling. Denies drainage from ulcer. Pt follows with wound care and has appointment there tomorrow. Since being on the antibiotic has mild nausea/ decreased appetite but has forced herself to eat anyway. Has increased urinary frequency. Had symptomatic hypoglycemic episode with BSG of 54 a few days ago. She denies fever, chills, chest pain, SOB, vomiting, diarrhea, dysuria , edema, abnormal bleeding. No NSAID use. Physical Exam (per Admitting): General Appearance: WD/WN, no apparent distress, + pertinent finding ( pleasant alert elderly female sitting on edge of bed, no distress) Head: normocephalic, atraumatic Eyes: normal inspection ENT: hearing grossly normal, pharynx normal Neck: supple, trachea midline Respiratory/Chest: lungs clear, normal breath sounds, no respiratory distress, no accessory muscle use Cardiovascular: regular rate, rhythm, no murmur Abdomen/GI: normal bowel sounds, non tender, soft Extremities/Musculoskelatal: no calf tenderness, normal capillary refill, no pedal edema Neurologic/Psych: alert, normal mood/affect, oriented x 3, + pertinent finding (no focal deficit on gross examination) Skin: warm/dry, + pertinent finding (right great toe eschar, no drainaage, no erythema or swelling, nontender. also has erythema, fungal odor, and skin tear in abdominal fold. ) Hospital Course RENATO ON CKD STAGE IV improved Creat is 3.0 from baseline 2 Likely due to Bactrim with dehydration /poor PO intake Renal US- No hydronephrosis. Mild renal cortical thinning and increased renal echogenicity. Multiple renal cysts. Consult nephrology- appreciate input form Dr. Ramey Cr continues to improve -avoid Nephrotoxin -contrast studies /NSAID's will need out pt Lab work /BMP to be monitored UTI History of recurrent UTI with prior urine cultures growing ESBL E. coli and pseudomonas. But latest culture in january 2017 growing e.coli sensitive to Rocephin and cefepime( In Epic). Afebrile, no leukocytosis urine culture- E.coli -ESBL , multi drug resistant -Cefepime d/leanne -resistant -started on IV Invanz Consulted ID, patient known to Dr. Acuña/Alize Raymond PA-C -appreciate input form ID team -given no urinary symptom /no clinical sign of infection -medical terminologist abx with PICC line may not be appropriate in this scenario -was treated with IV Invanz while in hospital -no further abx treatment indicated on discharge -will have close follow up with ID in office DIABETIC NON HEALING WOUND INFECTION OF RT GREAT TOE: f/u with wound clinic no active drainage or evidence of infection noted wound care consult appreciated pt will continue to follow up at wound clinic as out patient LABIAL LESION; pt's Urology eval on 02/10/16 noted: ulcerative lesion on post fourchette and left labia Weapons Designer referral been made pt was not able to see Weapons Designer appointment scheduled due to transportation issue D/w school lunch monitor Weapons Designer Dr Wong Talamantes- there is not much scope inpatient evaluation pt will need formal Pelvic exam in Weapons Designer clinic and possible biopsy and culture Appointment scheduled for with Weapons Designer Dr Back on 05/10/17 @ 10: 30 AM at [facility] pt updated willing to follow up with Weapons Designer in clinic ON 05/10/17 PAF ON COUMADIN Rate is controlled Continue metoprolol continue Coumadin HX CAD S/P STENT Stable, no anginal symptoms Continue aspirin, statin, beta loren CHRONIC SYSTOLIC CHF Euvolemic to mildly dry Hold Lasix for RENATO OK with IV fluids per Nephrology DM TYPE 2 Decrease Lantus due to reported symptomatic hypoglycemia at home Novolog sliding scale Monitor BSG AC HS A1c was 6.4 on 04/23/17 pharmacy glycemic consult requested HYPERTENSION Continue metoprolol and hydralazine Monitor History of CVA Continue aspirin and statin HYPOTHYROIDISM Continue levothyroxine ALISSA Intolerant to CPAP DEEP VEIN THROMBOSIS PROPHYLAXIS: Continue Coumadin DISPOSITION stable to be discharged home today Total time spent on discharge = 40 mins This includes examination of the patient, discharge planning, medication reconciliation, and communication with other providers. Discharge Instructions Discharge Instructions Date of Service Apr 28, 2017. Admission Reason for Admission: Renato (Acute Kidney Injury) Discharge Discharge Diagnosis / Problem: ACUTE RENAL FAILURE /UTI Discharge Goals Goal(s): Improve disease control, Diagnostic testing Activity Recommendations Activity Limitations: resume your previous activity . Instructions / Follow-Up Instructions / Follow-Up HOSPITAL FOLLOW UP 05/02/2017 @ 11.[address] Landa General Internal Medicine [facility] DR THORNE'S SCHEDULE IS FULL WEB APPLICATIONS PROGRAMMER FOLLOW UP 05/10/2017 @ 10:[address] Davin Talamantes MD [facility] Gynecology/Obstetrics LAB WORK : BASIC METABOLIC PANEL ON 05/02/17 CARDIOLOGY FOLLOW UP 05/01/2017 @ 1:15 PM Primitivo Santos PA-C Cardiology, [facility]\\ FOLLOW UP AT ID CLINIC WITH ALIZE LAMBERT IN 1-2 WEEKS FOLLOW UP AT THE WOUND CLINIC PER SCHEDULE Current Hospital Diet Patient's current hospital diet: Diabetes Type 2 Diet, Renal Diet Discharge Diet Recommended Diet: Diabetes Type 2 Diet, Renal Diet Pending Studies Studies pending at discharge: yes List of pending studies: BASIC METABOLIC PANEL ON 05/03/17 Medical Emergencies . Who to Call and When: Medical Emergencies: If at any time you feel your situation is an emergency, please call 911 immediately. . Non-Emergent Contact Non-Emergency issues call your: Primary Care Provider . . "Provider Documentation" section prepared by Nyla Terrell. . VTE Core Measure Inpt VTE Proph given/why not?: Warfarin (Coumadin) Additional Copies To Neri Lnada MD Garrett, Chelsey ., PADevendraC
== END 2017-04-29 15:25 | disposition home health service (06) | DRG 683 ==
LOC: C.EDB 12:09 → C.MS4W 16:33 → ENRESERV 16:43
PROVIDERS: ADMIT Internal Medicine; ATTEND Hospitalist
DX: N17.9 Acute kidney failure, unspecified (principal); I50.22 Chronic systolic (congestive) heart failure; N39.0 Urinary tract infection, site not specified; I13.0 Hypertensive heart and chronic kidney disease with heart failure and stage 1 through stage 4 chronic kidney disease, or unspecified chronic kidney disease; Z79.01 Long term (current) use of anticoagulants; I48.0 Paroxysmal atrial fibrillation; I65.29 Occlusion and stenosis of unspecified carotid artery; I67.9 Cerebrovascular disease, unspecified; E11.21 Type 2 diabetes mellitus with diabetic nephropathy; L08.89 Other specified local infections of the skin and subcutaneous tissue; T36.8X5A Adverse effect of other systemic antibiotics, initial encounter; N18.4 Chronic kidney disease, stage 4 (severe); Z86.14 Personal history of Methicillin resistant Staphylococcus aureus infection; I25.10 Atherosclerotic heart disease of native coronary artery without angina pectoris; E03.9 Hypothyroidism, unspecified; M81.0 Age-related osteoporosis without current pathological fracture; Z83.3 Family history of diabetes mellitus; E86.0 Dehydration; E11.621 Type 2 diabetes mellitus with foot ulcer; B96.20 Unspecified Escherichia coli [E. coli] as the cause of diseases classified elsewhere; B96.5 Pseudomonas (aeruginosa) (mallei) (pseudomallei) as the cause of diseases classified elsewhere; G47.33 Obstructive sleep apnea (adult) (pediatric); Y92.009 Unspecified place in unspecified non-institutional (private) residence as the place of occurrence of the external cause; Z95.0 Presence of cardiac pacemaker; Z87.891 Personal history of nicotine dependence; Z79.82 Long term (current) use of aspirin; Z86.73 Personal history of transient ischemic attack (TIA), and cerebral infarction without residual deficits; Z95.5 Presence of coronary angioplasty implant and graft

== ENCOUNTER 2017-08-11 20:24 | Emergency (ER) | payer OTHER ==
[~2017-08-11] VITALS: Ht 152.4 cm; Wt 82.6 kg
[~2017-08-11 20:24] MED LIST changes: +ALPR0.25 PO; +APR/25 PO; -ASCA500 PO; -CALC0.5C PO; +CALCTAB7 PO; -CHOL100010 PO; -CLC100X PO; -CNT PO; -CYAN10004 PO; +FEXO1TAB49 PO; +FURO20TA PO; -FURO40TA3 PO; -IMD2X PO; -INSDGI SC; +INSDGIPEN SC; -LEVO1TAB PO; -LORA10TA51 PO; +MULT-845 PO; +NVLG SC; -NVLGI SC; +NYSP EXT; +POLY335019 PO; -POTA10CA28 PO; -SULF800T23 PO; +SYN100 PO; +WARF-246 PO; -WARF5TAB7 PO; -XNX25 PO
[2017-08-11 20:36] VITALS: TEMP 36.9; Ht 152.4 cm; Wt 82.6 kg
--- NOTE | 2017-08-11 21:35 | EMERGENCY ROOM VISIT NOTE ---
History Report prepared by Cris: Glen Hurst Under the Supervision of: Dr. Erich Bolanos M.D. First contact with patient: 20:42 Chief Complaint: HYPERTENSION Stated Complaint: HIGH BP History of Present Illness The patient is an 87 year old female who presents to the Emergency Room with complaints of constant hypertension starting prior to arrival. The patient states that she could not fall asleep, so she checked her blood pressure, and it was 217/90. The patient additionally states that she has diabetes and a history of a UTI and is not currently being treated. She was put on antibiotics , and in April her kidney count went very high while on the antibiotics. The patient also states that she is on Coumadin. The patient states that she has chronic burning with urination over the past two years with this UTI. The patient denies any chest pain, shortness of breath, nausea, vomiting, fevers, back pain. She states that five days ago she missed taking her medications including blood pressure medications, Coumadin, aspirin, and Xanax as well as two nights ago. She states that she took them all last night and tonight. Source of History: patient, friend Onset: prior to arrival Position: other (global) Quality: other (hypertension) Timing: constant Associated Symptoms: + urinary symptoms, No chest pain, No SOB, No nausea, No vomiting, No back pain Review of Systems See HPI for pertinent positives & negatives. A total of 10 systems reviewed and were otherwise negative. Past Medical & Surgical Medical Problems: (1) RENATO (acute kidney injury) (2) Anticoagulated on warfarin (3) Atrial fibrillation (4) Carotid artery disease (5) Cerebrovascular disease (6) CHF (congestive heart failure) (7) CHF (congestive heart failure) (8) Chronic kidney disease (CKD), stage IV (severe) (9) Coronary artery disease (10) Diabetes mellitus, type II (11) Dyslipidemia (12) Hypertension (13) Hypothyroidism (14) Lesion of labia (15) MRSA nasal colonization (16) Osteoporosis (17) Sleep apnea Surgical Problems: (1) History of heart artery stent (2) Status post cardiac catheterization (3) Status post cardiac pacemaker procedure (4) Status post carotid endarterectomy (5) Status post cholecystectomy (6) Status post hysterectomy Old medical records were reviewed. Nurse's notes were reviewed and I agree with. Family History Diabetes mellitus Social History Smoking Status: Former Smoker Alcohol Use: none Drug Use: none Marital Status: Housing Status: lives alone Occupation Status: retired Current/Historical Medications Scheduled Aspirin (Aspirin Ec), 81 MG PO DAILY Atorvastatin (Lipitor), 20 MG PO QAM Calcium Carbonate-Vitamin D W/ (Caltrate 600 Plus), 1 TAB PO DAILY Furosemide (Lasix), 20 MG PO DAILY Gabapentin (Neurontin), 100 MG PO TID Hydralazine HCl (Hydralazine HCl), 25 MG PO BID Insulin Aspart (Novolog), 0 SC UD Insulin Glargine (Lantus), 40 UNITS SC DAILY Lactobacillus (Lactinex), 1 TAB PO TID Levothyroxine Sodium (Synthroid), 100 MCG PO QAM Multiple Vitamins W/ Minerals (Centrum Silver Adult 50+), 1 TAB PO DAILY Nitroglycerin (Nitrostat), 0.4 MG UT PRN Nystatin (Nystop), 1 APPLN EXT BID Potassium Chloride (Micro-K Ext Rel), 10 MEQ PO DAILY Specialty Vitamins Products (Collagen Ultra), 500 MG PO DAILY Warfarin Sod (Jantoven), 2.5 MG PO 3XWK Warfarin Sodium (Warfarin Sodium), 5 MG PO 4XWK Scheduled PRN Alprazolam (Xanax), 0.25 MG PO BID PRN for Anxiety Docusate Sodium (Colace), 100 MG PO BID PRN for Constipation Fexofenadine Hcl (Holly Allergy), 1 TAB PO DAILY PRN for allergies Tramadol (Ultram), 50 MG PO Q8 PRN for Pain Allergies Coded Allergies: Codeine (Verified Allergy, Intermediate, 04/24/17) Adhesives (Verified Allergy, Unknown, red;itchy skin, 04/24/17) Physical Exam Vital Signs Date Time Temp Pulse Resp B/P (MAP) Pulse Ox O2 Delivery O2 Flow Rate FiO2 08/11/17 22:55 60 15 118/63 98 08/11/17 21:40 61 19 141/66 97 Room Air 08/11/17 20:36 36.9 66 20 217/79 97 Room Air Physical Exam General: Non-ill older female in no acute distress. HEENT: Normal cephalic atraumatic. Pupils are equal round and reactive to light. Extraocular movements are intact. Oropharynx is pink with moist mucous membranes. No swelling of the mouth lips or tongue. Neck: Supple with a midline trachea. No meningeal signs or stiffness, no JVD or bruits. No Stridor. Chest: Clear to auscultation bilaterally. No wheezes or rhonchi. No increased work of breathing. Heart: regular rate and rhythm. Abdomen: Soft nontender, nondistended without rebound guarding or rigidity. Extremities: No cyanosis clubbing or edema. No calf tenderness or assymetry Spine/Back. Non tender to palpation. No CVA tenderness Skin: Good turgor without rashes. Neurologic exam: Cranial nerves two through 12 are intact. Motor and sensation are intact and symmetrical throughout. Medical Decision & Procedures ER Provider Diagnostic Interpretation: Radiology results as stated below per my review and radiologist interpretation: CHEST ONE VIEW PORTABLE HISTORY: 87 years-old Female CHEST PAIN acute atypical chest pain. COMPARISON: Portable chest radiograph 08/28/2016 TECHNIQUE: Portable upright AP view of the chest FINDINGS: There has been interval removal of the previously noted right-sided PICC. Left pectoral pacer is noted with leads appearing intact. Cardiac silhouette is again moderately enlarged. There is atherosclerosis of the aorta. Unchanged pulmonary vascular congestion without pneumothorax, pleural effusion, focal airspace consolidation or overt pulmonary edema. Bones are grossly intact. IMPRESSION: Cardiomegaly and pulmonary vascular congestion without overt pulmonary edema. The above report was generated using voice recognition software. It may contain grammatical, syntax or spelling errors. Electronically signed by: Ernie Scott M.D. 08/11/2017 9:39 PM Dictated Date/Time: 08/11/2017 9:38 PM Laboratory Results 08/11/17 21:40 Red Blood Count 4.34, Mean Corpuscular Volume 98.4, Mean Corpuscular Hemoglobin 31.6, Mean Corpuscular Hemoglobin Concent 32.1, Mean Platelet Volume 9.1, Neutrophils (%) (Auto) 59.4, Lymphocytes (%) (Auto) 25.9, Monocytes (%) (Auto) 8.9, Eosinophils (%) (Auto) 5.2, Basophils (%) (Auto) 0.4, Neutrophils # (Auto) 2.87, Lymphocytes # (Auto) 1.25, Monocytes # (Auto) 0.43, Eosinophils # (Auto) 0.25, Basophils # (Auto) 0.02 08/11/17 21:40 Test 08/11/17 21:40 08/11/17 21:54 White Blood Count 4.83 K/uL (4.8-10.8) Red Blood Count 4.34 M/uL (4.2-5.4) Hemoglobin 13.7 g/dL (12.0-16.0) Hematocrit 42.7 % (37-47) Mean Corpuscular Volume 98.4 fL (80-100) Mean Corpuscular Hemoglobin 31.6 pg (25-34) Mean Corpuscular Hemoglobin Concent 32.1 g/dl (32-36) Platelet Count 185 K/uL (130-400) Mean Platelet Volume 9.1 fL (7.4-10.4) Neutrophils (%) (Auto) 59.4 % Lymphocytes (%) (Auto) 25.9 % Monocytes (%) (Auto) 8.9 % Eosinophils (%) (Auto) 5.2 % Basophils (%) (Auto) 0.4 % Neutrophils # (Auto) 2.87 K/uL (1.4-6.5) Lymphocytes # (Auto) 1.25 K/uL (1.2-3.4) Monocytes # (Auto) 0.43 K/uL (0.11-0.59) Eosinophils # (Auto) 0.25 K/uL (0-0.5) Basophils # (Auto) 0.02 K/uL (0-0.2) RDW Standard Deviation 48.9 fL (36.4-46.3) RDW Coefficient of Variation 13.6 % (11.5-14.5) Immature Granulocyte % (Auto) 0.2 % Immature Granulocyte # (Auto) 0.01 K/uL (0.00-0.02) Anion Gap 9.0 mmol/L (3-11) Est Creatinine Clear Calc Drug Dose 15.7 ml/min Estimated GFR () 19.6 Estimated GFR (Non- 17.0 BUN/Creatinine Ratio 14.4 (10-20) Calcium Level 9.0 mg/dl (8.5-10.1) Bedside Troponin I 0.030 ng/ml (0-0.045) Laboratory studies as stated above per my review. ECG Indication: other (hypertension) Rate (beats per minute): 61 Rhythm: other (ventricular paced) Findings: no acute ischemic change, paced rhythm Comparison ECG Date: 06/03/16 Change: Ventricular paced replace ectopic atrial rhythm ED Course 2041: Past medical records reviewed. The patient was evaluated in room C5, and a complete history and physical examination were performed. 2222: Upon reevaluation, the patient is feeling better. I discussed the results and treatment plan with her. She verbalized agreement of the treatment plan. The patient was discharged home. Medical Decision Differentials include, but are not limited to; hypertension, anxiety, cardiac disease, infection, electrolyte or metabolic abnormality. This patient comes in as described above. She was placed in room C5. She was noted have high blood pressure home. She forgot to take her medications twice this past week but took them today and yesterday. She is asymptomatic at present she's had chronic bladder issues which are not currently an acute issue. No fever. No numbness or weakness or chest pain. IV access established. EKG shows a paced rhythm without ischemia. She has baseline renal insufficiency. She has no acute electrolyte or metabolic abnormalities. While she was here without any treatment, her blood pressure became normotensive as she was observed. She will be discharged to home and she should check her blood pressure frequently and log it. She should return to ER if : Chest pain, shortness of breath, worsening of symptoms, any new problems or concerns. Follow-up with her doctor this week this week for recheck. Medication Reconcilliation Current Medication List: was personally reviewed by me Blood Pressure Screening Patient's blood pressure: Elevated blood pressure Blood pressure disposition: Referred to PCP Impression Primary Impression: Hypertension Scribe Attestation The scribe's documentation has been prepared under my direction and personally reviewed by me in its entirety. I confirm that the note above accurately reflects all work, treatment, procedures, and medical decision making performed by me. Departure Information Dispostion Home / Self-Care Referrals Lamonte Thorne D.O. (PCP) Forms HOME CARE DOCUMENTATION FORM, IMPORTANT VISIT INFORMATION, WORK / SCHOOL INSTRUCTIONS Patient Instructions My [facility] Additional Instructions Rest. Ensure you take your medications as directed Checked her blood pressure and log it a couple times a day when you're relaxed Return to the ER if: Worsening symptoms, chest pain, shortness of breath, fever or chills, any new problems or concerns.
[2017-08-11] MEDS ORDERED: DOCU-94 PO (21:40)
[2017-08-11] MEDS ORDERED: WARF2.5T8 PO (21:40)
[2017-08-11] MEDS ORDERED: INSDGI SC (21:40)
[2017-08-11] MEDS ORDERED: SPECCAP4 PO (21:40)
[2017-08-11] MEDS ORDERED: POTA10CA28 PO (21:40)
--- NOTE | 2017-08-11 21:41 | DIAGNOSTIC IMAGING REPORT ---
CHEST ONE VIEW PORTABLE HISTORY: 87 years-old Female CHEST PAIN acute atypical chest pain. COMPARISON: Portable chest radiograph 08/28/2016 TECHNIQUE: Portable upright AP view of the chest FINDINGS: There has been interval removal of the previously noted right-sided PICC. Left pectoral pacer is noted with leads appearing intact. Cardiac silhouette is again moderately enlarged. There is atherosclerosis of the aorta. Unchanged pulmonary vascular congestion without pneumothorax, pleural effusion, focal airspace consolidation or overt pulmonary edema. Bones are grossly intact. IMPRESSION: Cardiomegaly and pulmonary vascular congestion without overt pulmonary edema. The above report was generated using voice recognition software. It may contain grammatical, syntax or spelling errors. Electronically signed by: Ernie Scott M.D. 08/11/2017 9:39 PM Dictated Date/Time: 08/11/2017 9:38 PM
[2017-08-11 21:56] LABS: BASO % 0.4 %; BASO ABS # 0.02 K/uL (0-0.2); COMPLETE YES; EOS % 5.2 %; HEMATOCRIT 42.7 % (37-47); IG% 0.2 %; LYMPH % 25.9 %; LYMPH ABS # 1.25 K/uL (1.2-3.4); MEAN CELL VOLUME 98.4 fL (80-100); MEAN CORPUSCULAR HEMOGLOBIN 31.6 pg (25-34); MEAN CORPUSCULAR HGB CONC 32.1 g/dl (32-36); MEAN PLATELET VOLUME 9.1 fL (7.4-10.4); MONO % 8.9 %; NEUT % 59.4 %; PLATELET COUNT 185 K/uL (130-400); RED BLOOD COUNT 4.34 M/uL (4.2-5.4); WHITE BLOOD COUNT 4.83 K/uL (4.8-10.8)
[2017-08-11 22:12] LABS: BUN/CREATININE RATIO 14.4 (10-20); CREATININE 2.5 mg/dl (0.60-1.20)
[2017-08-11 22:55] VITALS: BP 118/63; PULSE 60; O2SAT 98
== END 2017-08-11 22:55 | disposition home or self-care (01) ==
LOC: C.EDB 20:25 → C.EDC 22:55
DX: I10 Essential (primary) hypertension (principal); N17.9 Acute kidney failure, unspecified; I48.91 Unspecified atrial fibrillation; I25.10 Atherosclerotic heart disease of native coronary artery without angina pectoris; I67.9 Cerebrovascular disease, unspecified; I50.9 Heart failure, unspecified; N18.4 Chronic kidney disease, stage 4 (severe); E11.9 Type 2 diabetes mellitus without complications; E78.5 Hyperlipidemia, unspecified; E03.9 Hypothyroidism, unspecified; G47.30 Sleep apnea, unspecified; M19.90 Unspecified osteoarthritis, unspecified site; Z83.3 Family history of diabetes mellitus; Z87.891 Personal history of nicotine dependence; Z79.82 Long term (current) use of aspirin; Z79.4 Long term (current) use of insulin; Z79.01 Long term (current) use of anticoagulants

== ENCOUNTER → 2017-09-05 | Outpatient (CLI) | payer OTHER ==
[~2017-09-05] MED LIST changes: -APR/25 PO; +DOCU-94 PO; -FERR-24 PO; +HYDR-4716 PO; +INSDGI SC; -INSDGIPEN SC; -METO25TA56 PO; -POLY335019 PO; +POTA10CA28 PO; -PRLSR20 PO; +SPECCAP4 PO; +WARF2.5T8 PO
== END | disposition home or self-care (01) ==
LOC: C.LABSPEC 17:25
PROVIDERS: ATTEND Urology
DX: A49.8 Other bacterial infections of unspecified site (principal); N39.0 Urinary tract infection, site not specified; Z22.39 Carrier of other specified bacterial diseases

== ENCOUNTER → 2017-09-24 | Outpatient (CLI) | payer OTHER | END | disposition home or self-care (01) | LOC: C.LABSPEC 17:06 | PROVIDERS: ATTEND Urology | DX: N39.0 Urinary tract infection, site not specified (principal) ==

== ENCOUNTER 2017-10-22 09:29 | Emergency (ER) | payer OTHER ==
[~2017-10-22] VITALS: Ht 152.4 cm; Wt 78.3 kg
[~2017-10-22 09:29] MED LIST changes: -DOCU-94 PO; -SPECCAP4 PO
[2017-10-22 09:31] VITALS: TEMP 36.8; Ht 152.4 cm; Wt 78.3 kg
--- NOTE | 2017-10-22 09:53 | EMERGENCY ROOM VISIT NOTE ---
History Report prepared by Cris: Bertha Rivas Under the Supervision of: Dr. Angelita Tejeda M.D. First contact with patient: 09:41 Chief Complaint: HYPERTENSION Stated Complaint: HIGH BLOOD PRESSURE History of Present Illness The patient is an 87 year old female who presents to the Emergency Room with complaints of persistent hypertension that began prior to arrival. The patient states that she has a history of Hypertension, noting that she is on hydralazine. She states that recently she has been on antibiotics orally and through a PICC line for a urinary tract infection. The patient states that she has finished the IV antibiotics. She states that she recently bought a new machine to take her blood pressure. The patient states that she takes her blood pressure three times per day. She states that she has been compliant with her medications and states that she took her hydralazine at 0800 this morning. The patient denies any headache, chest pain, or shortness of breath. He states that he slept fine last night. The patient reports a history of a previous stroke and diabetes, but denies any history of a previous [facility]. Source of History: patient Onset: prior to arrival Position: other (global) Quality: other (hypertension) Timing: other (persistent) Associated Symptoms: No headache, No chest pain, No SOB Review of Systems See HPI for pertinent positives & negatives. A total of 10 systems reviewed and were otherwise negative. Past Medical & Surgical Medical Problems: (1) RENATO (acute kidney injury) (2) Anticoagulated on warfarin (3) Atrial fibrillation (4) Carotid artery disease (5) Cerebrovascular disease (6) CHF (congestive heart failure) (7) CHF (congestive heart failure) (8) Chronic kidney disease (CKD), stage IV (severe) (9) Coronary artery disease (10) Diabetes mellitus, type II (11) Dyslipidemia (12) Hypertension (13) Hypothyroidism (14) Lesion of labia (15) MRSA nasal colonization (16) Osteoporosis (17) Sleep apnea Surgical Problems: (1) History of heart artery stent (2) Status post cardiac catheterization (3) Status post cardiac pacemaker procedure (4) Status post carotid endarterectomy (5) Status post cholecystectomy (6) Status post hysterectomy Family History Diabetes mellitus Heart disease Hypertension Social History Smoking Status: Never Smoker Alcohol Use: none Drug Use: none Marital Status: Housing Status: lives alone Occupation Status: retired Current/Historical Medications Scheduled Aspirin (Aspirin Ec), 81 MG PO DAILY Atorvastatin (Lipitor), 20 MG PO QAM Calcium Carbonate-Vitamin D W/ (Caltrate 600 Plus), 1 TAB PO DAILY Furosemide (Lasix), 20 MG PO DAILY Gabapentin (Neurontin), 100 MG PO TID Hydralazine HCl (Hydralazine HCl), 25 MG PO BID Insulin Aspart (Novolog), 0 SC TIDM Insulin Glargine (Lantus), 40 UNITS SC HS Lactobacillus (Lactinex), 1 TAB PO TID Levothyroxine Sodium (Synthroid), 100 MCG PO QAM Metoprolol Tartrate (Lopressor) (Lopressor), 25 MG PO BID Multiple Vitamins W/ Minerals (Centrum Silver Adult 50+), 1 TAB PO DAILY Nitroglycerin (Nitrostat), 0.4 MG UT PRN Nystatin (Nystop), 1 APPLN EXT BID Potassium Chloride (Micro-K Ext Rel), 10 MEQ PO DAILY Warfarin Sod (Jantoven), 2.5 MG PO 3XWK Warfarin Sodium (Warfarin Sodium), 5 MG PO 4XWK Scheduled PRN Alprazolam (Xanax), 0.25 MG PO BID PRN for Anxiety Fexofenadine Hcl (Holly Allergy), 1 TAB PO DAILY PRN for allergies Tramadol (Ultram), 50 MG PO Q8 PRN for Pain Allergies Coded Allergies: Codeine (Verified Allergy, Intermediate, 10/22/17) Adhesives (Verified Allergy, Unknown, red;itchy skin, 10/22/17) Physical Exam Vital Signs Date Time Temp Pulse Resp B/P (MAP) Pulse Ox O2 Delivery O2 Flow Rate FiO2 10/22/17 10:57 64 20 161/71 95 Room Air 10/22/17 09:31 36.8 72 18 185/92 96 Room Air Physical Exam Vital signs reviewed. General: Well-appearing female, in no significant distress. HEENT: No scleral icterus, PERRLA, neck supple. Atraumatic. Cardiovascular: Regular rate and rhythm, no extra sounds. Pulmonary: Clear to auscultation bilaterally, normal work of breathing. Abdomen: Soft, nontender, nondistended, positive bowel sounds. Musculoskeletal: Atraumatic, no peripheral edema. Neurologic: Patient awake alert and oriented x 3, full strength in all 4 extremities. Cranial nerves 2 through 12 grossly intact. Skin: Warm, dry, no rash Medical Decision & Procedures Medications Administered Medications (Trade) Dose Ordered Sig/Danisha Route Start Time Stop Time Status Last Admin Dose Admin Metoprolol Tartrate (Lopressor Tab) 25 mg NOW STAT PO 10/22/17 10:28 10/22/17 10:30 DC 10/22/17 10:53 25 MG ECG Indication: other (hypertension) Rate (beats per minute): 62 Rhythm: other (ventricularly paced) Findings: no acute ischemic change, other (occasional supraventricular complex) ED Course 0943: Past medical records reviewed. The patient was evaluated in room C1B. A complete history and physical examination was performed. 1025: I spoke to Primitivo Andujar [facility]. He states that he would like to have the patient started on 25 mg of Metoprolol twice per day. 1028: Ordered Metoprolol Tartrate 25 mg PO. 1057: I reevaluated the patient and she is resting comfortably. I discussed the test results with her and I discussed the treatment plan. She verbalized complete understanding and agreement. She is ready to go home. Medical Decision Differential diagnosis: Etiologies such as benign hypertension, hypertensive emergency, cardiovascular pathology, pheochromocytoma, electrolyte abnormality, renal disease, end-organ damage, as well as others were entertained. This patient was evaluated and appeared to be in no significant distress. Patient is asymptomatic at this time. EKG was performed and reveals a ventricularly paced rhythm. Patient was discussed with Primitivo Santos PA-C of cardiology who knows the patient well. He has recommended reinstituting metoprolol 25 mg twice a day. The patient was provided with a prescription. She was given 1 dose here in the emergency department. He will arrange for follow-up with the patient in the near future. Patient was advised of the findings and will return to the ER for worsening of symptoms or any medical concerns. Medication Reconcilliation Current Medication List: was personally reviewed by me Blood Pressure Screening Patient's blood pressure: Elevated blood pressure Blood pressure disposition: Referred to PCP Consults Time Called: 1014 Consulting Physician: Family Fuad Hogan PA-C Returned Call: 1025 I spoke to Primitivo Merdia PA-C. He states that he would like to have the patient started on 25 mg of Metoprolol twice per day. Impression Primary Impression: Hypertension Scribe Attestation The scribe's documentation has been prepared under my direction and personally reviewed by me in its entirety. I confirm that the note above accurately reflects all work, treatment, procedures, and medical decision making performed by me. Departure Information Dispostion Home / Self-Care Prescriptions Metoprolol Tartrate (Lopressor) (Lopressor) 25 Mg Tab 25 MG PO BID, #60 TAB Prov: Angelita Tejeda M.D. 10/22/17 Referrals Lamonte Thorne D.O. (PCP) Forms HOME CARE DOCUMENTATION FORM, IMPORTANT VISIT INFORMATION, WORK / SCHOOL INSTRUCTIONS Patient Instructions My [facility] Additional Instructions Diagnosis: Hypertension Continue your hydralazine 50 mg 3 times a day as prescribed by cardiology. Metoprolol 25 mg twice daily. Please follow-up with cardiology within the next several weeks for blood pressure recheck and medication management. Return to the ER for worsening of symptoms or any medical concerns.
[2017-10-22] MEDS ORDERED: METOPROLOL TARTRATE 50 MG TAB PO STA (10:28)
[2017-10-22] MEDS ORDERED: METO25TA56 PO (10:39)
[2017-10-22 10:57] VITALS: BP 161/71; PULSE 64; O2SAT 95
== END 2017-10-22 11:22 | disposition home or self-care (01) ==
LOC: C.EDB 09:30 → C.EDC 11:22
DX: I12.9 Hypertensive chronic kidney disease with stage 1 through stage 4 chronic kidney disease, or unspecified chronic kidney disease (principal); N18.4 Chronic kidney disease, stage 4 (severe); E11.9 Type 2 diabetes mellitus without complications; I48.91 Unspecified atrial fibrillation; E78.5 Hyperlipidemia, unspecified; I50.9 Heart failure, unspecified; E03.9 Hypothyroidism, unspecified; I25.10 Atherosclerotic heart disease of native coronary artery without angina pectoris; M81.0 Age-related osteoporosis without current pathological fracture; G47.39 Other sleep apnea; Z86.73 Personal history of transient ischemic attack (TIA), and cerebral infarction without residual deficits; Z86.14 Personal history of Methicillin resistant Staphylococcus aureus infection; Z95.0 Presence of cardiac pacemaker; Z98.61 Coronary angioplasty status; Z90.710 Acquired absence of both cervix and uterus; Z90.49 Acquired absence of other specified parts of digestive tract; Z79.4 Long term (current) use of insulin; Z79.01 Long term (current) use of anticoagulants; Z79.82 Long term (current) use of aspirin; Z79.899 Other long term (current) drug therapy; Z88.5 Allergy status to narcotic agent; Z91.09 Other allergy status, other than to drugs and biological substances

== ENCOUNTER 2018-01-24 12:37 | Emergency (ER) | payer OTHER ==
[~2018-01-24] VITALS: Ht 152.4 cm; Wt 81.0 kg
[~2018-01-24 12:37] MED LIST changes: +METO25TA56 PO
[2018-01-24 13:04] VITALS: TEMP 36.4; Ht 152.4 cm; Wt 81.0 kg
[2018-01-24] MEDS ORDERED: SODIUM CHLORIDE 0.9% 1000ML 1,000 ML IV STA (13:28)
[2018-01-24] MEDS ORDERED: ONDANSETRON INJ 2 MG/ML 2 ML VIAL IV STA (13:28)
[2018-01-24] MEDS ORDERED: FAMOTIDINE 20 MG TAB PO ONE ×2 (13:30→18:45)
--- NOTE | 2018-01-24 13:32 | EMERGENCY ROOM VISIT NOTE ---
History Report prepared by Haileyibmateo: Felice Astudillo Under the Supervision of: Dr. Kaz Ramirez M.D. First contact with patient: 13:05 Chief Complaint: NAUSEA Stated Complaint: ILLNESS Nursing Triage Summary: pt here via bls from home with c/o nausea x 2 hours. pt states some dizziness with moving. pt denies any pains. no diarrhea or vomiting at this time History of Present Illness The patient is an 87 year old female who presents to the Emergency Room brought in by EMS with complaints of persistent general nausea for two hours. She felt normal and fine this morning. She notes the nausea began when she was getting dressed. She notes that she was sweating. She also reports dizziness that is worsened with movement. She believes that she is dehydrated. She states that she slept well last night. She notes her carotid arteries started to pulsate yesterday. She notified her svp [employer], though he did not advise her to come to the ED. She has a history of CEA. She has a pacemaker. She has a history of irregular heartbeat. She denies any history of valve replacements. She is currently taking Coumadin, though she is unsure why. The patient denies any chest pain or shortness of breath. Source of History: patient Onset: two hours ago Position: other (general ) Quality: other (nausea) Timing: other (persistent) Associated Symptoms: No chest pain, No SOB Note: She notes sweating, dehydration, and dizziness. Review of Systems See HPI for pertinent positives and negatives. A total of ten systems were reviewed and were otherwise negative. Past Medical & Surgical Medical Problems: (1) RENATO (acute kidney injury) (2) Anticoagulated on warfarin (3) Atrial fibrillation (4) Carotid artery disease (5) Cerebrovascular disease (6) CHF (congestive heart failure) (7) CHF (congestive heart failure) (8) Chronic kidney disease (CKD), stage IV (severe) (9) Coronary artery disease (10) Diabetes mellitus, type II (11) Dyslipidemia (12) Hypertension (13) Hypothyroidism (14) Lesion of labia (15) MRSA nasal colonization (16) Osteoporosis (17) Sleep apnea Surgical Problems: (1) History of heart artery stent (2) Status post cardiac catheterization (3) Status post cardiac pacemaker procedure (4) Status post carotid endarterectomy (5) Status post cholecystectomy (6) Status post hysterectomy Family History Diabetes mellitus Heart disease Hypertension Social History Smoking Status: Former Smoker Alcohol Use: none Drug Use: none Marital Status: Housing Status: lives alone Occupation Status: retired Current/Historical Medications Scheduled Atorvastatin (Lipitor), 20 MG PO QAM Famotidine (Pepcid), 20 MG PO BID Furosemide (Lasix), 20 MG PO DAILY Hydralazine HCl (Hydralazine HCl), 50 MG PO TID Insulin Glargine (Lantus), 40 UNITS SC HS Levothyroxine Sodium (Synthroid), 100 MCG PO QAM Nitroglycerin (Nitrostat), 0.4 MG UT PRN Ondasetron Odt (Zofran Odt), 4 MG SL Q6H Warfarin Sod (Jantoven), 2.5 MG PO 3XWK Warfarin Sodium (Warfarin Sodium), 5 MG PO 4XWK Scheduled PRN Alprazolam (Xanax), 0.25 MG PO BID PRN for Anxiety Allergies Coded Allergies: Codeine (Verified Allergy, Intermediate, 01/24/18) Adhesives (Verified Allergy, Unknown, red;itchy skin, 01/24/18) Physical Exam Vital Signs Date Time Temp Pulse Resp B/P (MAP) Pulse Ox O2 Delivery O2 Flow Rate FiO2 01/24/18 18:53 62 16 153/61 97 Room Air 01/24/18 17:29 67 20 115/68 95 Room Air 01/24/18 16:30 60 20 108/53 97 Room Air 01/24/18 14:33 97 Room Air 01/24/18 14:32 60 16 136/75 01/24/18 13:04 36.4 60 16 191/87 98 Room Air 01/24/18 12:58 70 Physical Exam GENERAL: Awake, alert, well-appearing, in no distress HENT: Normocephalic, atraumatic. Oropharynx dry mucus membranes. EYES: Normal conjunctiva. Sclera non-icteric. NECK: Supple. No nuchal rigidity. FROM. No JVD. RESPIRATORY: Clear to auscultation. CARDIAC: Regular rate, normal rhythm. Extremities warm and well perfused. Pulses equal. ABDOMEN: Soft, non-distended. Mild epigastric discomfort, no discreet tenderness. No rebound or guarding. No masses. RECTAL: Deferred. MUSCULOSKELETAL: Chest examination reveals no tenderness. The back is symmetrical on inspection without obvious abnormality. There is no CVA tenderness to palpation. No joint edema. LOWER EXTREMITIES: Calves are equal size bilaterally and non-tender. No edema. No discoloration. NEURO: Normal sensorium. No sensory or motor deficits noted. SKIN: No rash or jaundice noted. Medical Decision & Procedures ER Provider Diagnostic Interpretation: Radiology results as stated below per my review and radiologist interpretation: CHEST ONE VIEW PORTABLE CLINICAL HISTORY: 87 years-old Female presenting with CHEST PAIN. TECHNIQUE: Portable upright AP view of the chest was obtained. COMPARISON: 08/11/2017. FINDINGS: Left subclavian pacer with leads to the right atrium and right ventricular apex. Atherosclerosis of aortic arch. Cardiac silhouette moderately enlarged. Coronary artery calcification or stents noted. Lungs and pleural spaces clear. Degenerative changes of the thoracic spine. Post traumatic or degenerative deformity of the right humerus. IMPRESSION: 1. Cardiomegaly without evidence of acute cardiopulmonary disease. Electronically signed by: Dale Scott M.D. 01/24/2018 2:02 PM Dictated Date/Time: 01/24/2018 2:01 PM Laboratory Results 01/24/18 13:01 Red Blood Count 4.49, Mean Corpuscular Volume 96.9, Mean Corpuscular Hemoglobin 31.0, Mean Corpuscular Hemoglobin Concent 32.0, Mean Platelet Volume 9.2, Neutrophils (%) (Auto) 76.3, Lymphocytes (%) (Auto) 15.9, Monocytes (%) (Auto) 5.1, Eosinophils (%) (Auto) 2.3, Basophils (%) (Auto) 0.2, Neutrophils # (Auto) 3.90, Lymphocytes # (Auto) 0.81, Monocytes # (Auto) 0.26, Eosinophils # (Auto) 0.12, Basophils # (Auto) 0.01 01/24/18 13:01 Test 01/24/18 13:01 01/24/18 14:10 White Blood Count 5.11 K/uL (4.8-10.8) Red Blood Count 4.49 M/uL (4.2-5.4) Hemoglobin 13.9 g/dL (12.0-16.0) Hematocrit 43.5 % (37-47) Mean Corpuscular Volume 96.9 fL (80-100) Mean Corpuscular Hemoglobin 31.0 pg (25-34) Mean Corpuscular Hemoglobin Concent 32.0 g/dl (32-36) Platelet Count 161 K/uL (130-400) Mean Platelet Volume 9.2 fL (7.4-10.4) Neutrophils (%) (Auto) 76.3 % Lymphocytes (%) (Auto) 15.9 % Monocytes (%) (Auto) 5.1 % Eosinophils (%) (Auto) 2.3 % Basophils (%) (Auto) 0.2 % Neutrophils # (Auto) 3.90 K/uL (1.4-6.5) Lymphocytes # (Auto) 0.81 K/uL (1.2-3.4) Monocytes # (Auto) 0.26 K/uL (0.11-0.59) Eosinophils # (Auto) 0.12 K/uL (0-0.5) Basophils # (Auto) 0.01 K/uL (0-0.2) RDW Standard Deviation 50.8 fL (36.4-46.3) RDW Coefficient of Variation 14.3 % (11.5-14.5) Immature Granulocyte % (Auto) 0.2 % Immature Granulocyte # (Auto) 0.01 K/uL (0.00-0.02) Prothrombin Time 30.2 SECONDS (9.0-12.0) Prothromb Time International Ratio 2.9 (0.9-1.1) Anion Gap 9.0 mmol/L (3-11) Est Creatinine Clear Calc Drug Dose 17.9 ml/min Estimated GFR () 23.4 Estimated GFR (Non- 20.2 BUN/Creatinine Ratio 13.9 (10-20) Calcium Level 8.8 mg/dl (8.5-10.1) Total Bilirubin 0.5 mg/dl (0.2-1) Direct Bilirubin 0.2 mg/dl (0-0.2) Aspartate Amino Transf (AST/SGOT) 24 U/L (15-37) Alanine Aminotransferase (ALT/SGPT) 34 U/L (12-78) Alkaline Phosphatase 75 U/L (45-117) Troponin I < 0.015 ng/ml (0-0.045) Pro-B-Type Natriuretic Peptide 6418 pg/ml (0-1800) Total Protein 7.1 gm/dl (6.4-8.2) Albumin 3.7 gm/dl (3.4-5.0) Lipase 105 U/L (73-393) Urine Color YELLOW Urine Appearance CLEAR (CLEAR) Urine pH 6.5 (4.5-7.5) Urine Specific [place] 1.017 (1.000-1.030) Urine Protein 2+ (NEG) Urine Glucose (UA) 1+ (NEG) Urine Ketones 1+ (NEG) Urine Occult Blood 1+ (NEG) Urine Nitrite POS (NEG) Urine Bilirubin NEG (NEG) Urine Urobilinogen NEG (NEG) Urine Leukocyte Esterase SMALL (NEG) Urine WBC (Auto) 10-30 /hpf (0-5) Urine RBC (Auto) 10-30 /hpf (0-4) Urine Hyaline Casts (Auto) 1-5 /lpf (0-5) Urine Epithelial Cells (Auto) 10-20 /lpf (0-5) Urine Bacteria (Auto) 4+ (NEG) Laboratory results reviewed by me Medications Administered Medications (Trade) Dose Ordered Sig/Danisha Route Start Time Stop Time Status Last Admin Dose Admin Sodium Chloride 1,000 ml @ 999 mls/hr Q1H1M STAT IV 01/24/18 13:28 01/24/18 14:28 DC 01/24/18 14:29 999 MLS/HR Ondansetron HCl (Zofran Inj) 4 mg NOW STAT IV 01/24/18 13:28 01/24/18 13:48 DC 01/24/18 14:00 4 MG Famotidine (Pepcid Tab) 20 mg NOW ONCE PO 01/24/18 13:30 01/24/18 13:48 DC 01/24/18 14:29 20 MG Ceftriaxone Sodium (Rocephin Inj) 1 gm NOW STAT IV 01/24/18 15:41 01/24/18 15:42 DC 01/24/18 16:34 1 GM Famotidine (Pepcid Tab) 20 mg NOW ONCE PO 01/24/18 18:45 01/24/18 18:46 DC 01/24/18 18:57 20 MG Ondansetron HCl (ZOFRAN ODT 4MG Home Pack) 1 homepack UD ONCE PO 01/24/18 18:45 01/24/18 18:46 DC 01/24/18 18:57 1 HOMEPACK ECG Per My Interpretation Indication: nausea Rate (beats per minute): 64 Rhythm: other (Ventricular-paced) Findings: no acute ischemic change, other (Normal axis) ED Course 1323: The patient was evaluated in room B3B. A complete history and physical exam was performed. 1700: I reassessed the patient at this time. She is feeling better. Medical Decision I reviewed the patient's past medical history, medications, and the nursing notes as described above. Differential diagnosis: Etiologies such as appendicitis, diverticulitis, PUD, biliary pathology, UTI, pancreatitis, obstruction, mesenteric ischemia, aortic pathology, infections, inflammatory bowel disease, renal colic, as well as others were entertained. The patient is a 87-year-old woman with a past medical history of A. fib on Coumadin, CKD, carotid endarterectomy, recurrent tract infections who presents to the emergency department with episode of nausea that began prior to arrival per hpi. Of note, the patient reports that the symptoms occur in the setting of having a decreased appetite over the past week. She denies any chest pain, shortness of breath, fevers or chills. She does comment that she has felt a pulsation of her left carotid artery that began on Saturday but called her doctor and was reassured. Rather the patient is relatively well-appearing, no acute distress, afebrile stable vital signs. EKG unremarkable. Labs are at patient's baseline. Chest x-ray negative for pneumonia. UA is grossly positive patient reports that this is always the case and she has been told that it usually does not need to be treated. Review prior inpatient infectious disease notes describes this however in the setting of symptoms could be could consider treatment. Given that nausea could be equivalent for urinary tract symptoms in this elderly patient we agreed to treat with empiric IV dose of ceftriaxone. However subsequently upon review of the patient's recent urine cultures it appears that she consistently has a strain of E. coli that is resistant to cephalosporins. However, sensitive to carbapenems and Macrobid. Patient feeling improved after IV fluid hydration. However she is still concerned about her carotids. We agreed to perform a carotid ultrasound which showed 50-69% stenosis on the right but otherwise no significant stenosis on the left. Otherwise, given the patient's question history of UA colonization and history of resistant E. coli limiting antibiotic options will defer further treatment at this time. Thus, patient's decreased appetite and nausea are possibly related to a gastritis so we will attempt a trial of Pepcid. Patient has an appointment to follow-up with her doctor on Saturday. Findings and plan for follow-up reviewed with patient. Patient agreeable and d/c'd per discharge instructions. Medication Reconcilliation Current Medication List: was personally reviewed by me Blood Pressure Screening Patient's blood pressure: Elevated blood pressure Blood pressure disposition: Elevated BP felt to be situational Impression Primary Impression: Nausea Scribe Attestation The scribe's documentation has been prepared under my direction and personally reviewed by me in its entirety. I confirm that the note above accurately reflects all work, treatment, procedures, and medical decision making performed by me. Departure Information Dispostion Home / Self-Care Prescriptions Ondasetron Odt (ZOFRAN ODT) 4 Mg Tab 4 MG SL Q6H for Nausea, #10 TAB Prov: Kaz Ramirez M.D. 01/24/18 Famotidine (PEPCID) 20 Mg Tab 20 MG PO BID for 14 Days, #28 TABS Prov: Kaz Ramirez M.D. 01/24/18 Referrals Lamonte Thorne D.O. (PCP) Patient Instructions ED Gastritis, ED Nausea Vomiting, [facility] Additional Instructions Please follow up with your primary care physician on Saturday as scheduled for re- evaluation and to repeat your INR. The cause of your symptoms is unclear at this time but may be due to a gastritis. Otherwise, your exam, EKG, chest xray, lab results, carotid ultrasound did not show signs of an emergent condition at this time. Pepcid as directed. Zofran as needed for nausea. Drink plenty of fluids to ensure hydration. Return to the emergency department for worsening symptoms as described in the accompanying instructions.
[2018-01-24 13:55] LABS: BASO % 0.2 %; BASO ABS # 0.01 K/uL (0-0.2); EOS % 2.3 %; EOS ABS # 0.12 K/uL (0-0.5); HEMATOCRIT 43.5 % (37-47); HEMOGLOBIN 13.9 g/dL (12.0-16.0); IG# 0.01 K/uL (0.00-0.02); LYMPH % 15.9 %; LYMPH ABS # 0.81 K/uL (1.2-3.4); MEAN CELL VOLUME 96.9 fL (80-100); MEAN PLATELET VOLUME 9.2 fL (7.4-10.4); MONO % 5.1 %; MONO ABS # 0.26 K/uL (0.11-0.59); NEUT % 76.3 %; PLATELET COUNT 161 K/uL (130-400); RED CELL DISTRIBUTION WIDTH CV 14.3 % (11.5-14.5); RED CELL DISTRIBUTION WIDTH SD 50.8 fL (36.4-46.3); WHITE BLOOD COUNT 5.11 K/uL (4.8-10.8)
[2018-01-24 14:02] LABS: INR 2.9 (0.9-1.1)
--- NOTE | 2018-01-24 14:03 | DIAGNOSTIC IMAGING REPORT ---
CHEST ONE VIEW PORTABLE CLINICAL HISTORY: 87 years-old Female presenting with CHEST PAIN. TECHNIQUE: Portable upright AP view of the chest was obtained. COMPARISON: 08/11/2017. FINDINGS: Left subclavian pacer with leads to the right atrium and right ventricular apex. Atherosclerosis of aortic arch. Cardiac silhouette moderately enlarged. Coronary artery calcification or stents noted. Lungs and pleural spaces clear. Degenerative changes of the thoracic spine. Post traumatic or degenerative deformity of the right humerus. IMPRESSION: 1. Cardiomegaly without evidence of acute cardiopulmonary disease. Electronically signed by: Dale Scott M.D. 01/24/2018 2:02 PM Dictated Date/Time: 01/24/2018 2:01 PM
[2018-01-24 14:10] LABS: ALBUMIN 3.7 gm/dl (3.4-5.0); ALT/SGPT 34 U/L (12-78); AST/SGOT 24 U/L (15-37); BLOOD UREA NITROGEN 30 mg/dl (7-18); CALCIUM 8.8 mg/dl (8.5-10.1); CARBON DIOXIDE 22 mmol/L (21-32); CREATININE 2.16 mg/dl (0.60-1.20); GLUCOSE 162 mg/dl (70-99); LIPASE 105 U/L (73-393); POTASSIUM 3.8 mmol/L (3.5-5.1); SODIUM 137 mmol/L (136-145)
[2018-01-24 14:14] LABS: ALKALINE PHOSPHATASE 75 U/L (45-117); TOTAL PROTEIN 7.1 gm/dl (6.4-8.2)
[2018-01-24 14:33] VITALS: O2SAT 97
[2018-01-24] MEDS ORDERED: CEFTRIAXONE SOD INJ 1 GM ADDVIAL IV STA (15:41)
--- NOTE | 2018-01-24 18:14 | DIAGNOSTIC IMAGING REPORT ---
CAROTID DOPPLER NECK ART CLINICAL HISTORY: 87 years-old Female with left carotid pulsation/pain. Acute left neck pain COMPARISON: None available TECHNIQUE: Multiple real time sonographic images of the carotid bifurcations were obtained assessing arias scale, color Doppler and spectral wave form appearance FINDINGS: No blood pressures were conducted secondary to IV access site of the right antecubital fossa. RIGHT INTERNAL CAROTID: The peak systolic velocity measured 164 cm/sec within the mid right ICA. The end diastolic velocity measured 39 cm/sec. The ICA to CCA ratio measured 2.4 which correlates with a stenosis of 50-69%. There is prominent mixed plaquing of the right carotid bulb and proximal right ICA. LEFT INTERNAL CAROTID: The peak systolic velocity measured 88 cm/sec. The end diastolic velocity measured 31 cm/sec. The ICA to CCA ratio measured 1.2 which correlates with a stenosis of 0-50%. Moderate mixed plaquing of the left carotid bulb and proximal left ICA. There is normal antegrade vertebral flow bilaterally. IMPRESSION: 1. Prominent mixed plaquing of the right carotid bulb and proximal right ICA results in elevated peak systolic velocity correlating with 50-69% stenosis. 2. Moderate mixed plaquing of the left carotid bulb and proximal left ICA without hemodynamically significant stenosis. 3. Antegrade flow of the bilateral vertebral arteries. The above report was generated using voice recognition software. It may contain grammatical, syntax or spelling errors. Electronically signed by: Ernie Scott M.D. 01/24/2018 6:13 PM Dictated Date/Time: 01/24/2018 6:09 PM
[2018-01-24] MEDS ORDERED: FAMO20TA9 PO (18:40)
[2018-01-24] MEDS ORDERED: ONDA4TAB10 SL (18:40)
[2018-01-24] MEDS ORDERED: ONDANSETRON HOME PACK 4MG OD TAB PO ONE (18:45)
[2018-01-24 18:53] VITALS: BP 153/61; PULSE 62; O2SAT 97
== END 2018-01-24 19:01 | disposition home or self-care (01) ==
LOC: EDBD 12:37 → C.EDB 12:38
DX: R11.0 Nausea (principal); Z95.0 Presence of cardiac pacemaker; Z79.01 Long term (current) use of anticoagulants; I48.91 Unspecified atrial fibrillation; I25.10 Atherosclerotic heart disease of native coronary artery without angina pectoris; N18.4 Chronic kidney disease, stage 4 (severe); I12.9 Hypertensive chronic kidney disease with stage 1 through stage 4 chronic kidney disease, or unspecified chronic kidney disease; E78.5 Hyperlipidemia, unspecified; I50.9 Heart failure, unspecified; E03.9 Hypothyroidism, unspecified; G47.30 Sleep apnea, unspecified; M81.0 Age-related osteoporosis without current pathological fracture; Z90.49 Acquired absence of other specified parts of digestive tract; Z90.710 Acquired absence of both cervix and uterus; Z83.3 Family history of diabetes mellitus; Z82.49 Family history of ischemic heart disease and other diseases of the circulatory system; Z79.4 Long term (current) use of insulin; Z79.899 Other long term (current) drug therapy; Z88.5 Allergy status to narcotic agent; Z91.048 Other nonmedicinal substance allergy status

== ENCOUNTER 2018-04-05 18:12 | Emergency (ER) | payer OTHER ==
[~2018-04-05] VITALS: Ht 152.4 cm; Wt 81.6 kg
[~2018-04-05 18:12] MED LIST changes: -ASPI81TA28 PO; -CALCTAB7 PO; -FEXO1TAB49 PO; -GABA-112 PO; -LACTCHW3 PO; -METO25TA56 PO; -MULT-845 PO; -NVLG SC; -NYSP EXT; +ONDA4TAB10 SL; -POTA10CA28 PO; -TRAM-10 PO
[2018-04-05 18:13] VITALS: TEMP 36.4
[2018-04-05 18:42] VITALS: Ht 152.4 cm; Wt 81.6 kg
[2018-04-05 18:51] VITALS: O2SAT 95
[2018-04-05 18:57] LABS: BASO % 0.4 %; BASO ABS # 0.02 K/uL (0-0.2); EOS % 3.3 %; EOS ABS # 0.16 K/uL (0-0.5); HEMATOCRIT 40.1 % (37-47); HEMOGLOBIN 12.7 g/dL (12.0-16.0); IG# 0.01 K/uL (0.00-0.02); LYMPH % 16.6 %; MEAN CELL VOLUME 98.3 fL (80-100); MEAN CORPUSCULAR HEMOGLOBIN 31.1 pg (25-34); MEAN CORPUSCULAR HGB CONC 31.7 g/dl (32-36); MEAN PLATELET VOLUME 8.8 fL (7.4-10.4); MONO % 7.7 %; MONO ABS # 0.37 K/uL (0.11-0.59); NEUT % 71.8 %; NEUT ABS # 3.46 K/uL (1.4-6.5); PLATELET COUNT 152 K/uL (130-400); RED CELL DISTRIBUTION WIDTH CV 14.8 % (11.5-14.5); RED CELL DISTRIBUTION WIDTH SD 52.5 fL (36.4-46.3); WHITE BLOOD COUNT 4.82 K/uL (4.8-10.8)
[2018-04-05 19:08] LABS: INR 2.7 (0.9-1.1); PTT PATIENT 43.6 SECONDS (21.0-31.0)
[2018-04-05 19:21] LABS: ALBUMIN 3.1 gm/dl (3.4-5.0); ALKALINE PHOSPHATASE 78 U/L (45-117); ALT/SGPT 27 U/L (12-78); AST/SGOT 21 U/L (15-37); BLOOD UREA NITROGEN 37 mg/dl (7-18); CALCIUM 8.2 mg/dl (8.5-10.1); CARBON DIOXIDE 24 mmol/L (21-32); CREATININE 2.29 mg/dl (0.60-1.20); GLUCOSE 156 mg/dl (70-99); POTASSIUM 4.3 mmol/L (3.5-5.1); SODIUM 141 mmol/L (136-145); TOTAL PROTEIN 7.3 gm/dl (6.4-8.2)
--- NOTE | 2018-04-05 19:24 | DIAGNOSTIC IMAGING REPORT ---
CHEST ONE VIEW PORTABLE CLINICAL HISTORY: EVALUATE RESPIRATORY DISTRESS.DYSPNEA COMPARISON STUDY: Chest radiograph January 24, 2018. FINDINGS: Dual-lead left subclavian pacer leads are unchanged in position. There is no pneumothorax or pleural effusion. Apparent hazy left basilar opacity is likely artifactual. Moderate cardiomegaly is noted without evidence for pulmonary edema. The appearance of the chest is unchanged. IMPRESSION: No acute cardiopulmonary findings. Stable cardiomegaly without evidence for pulmonary edema. No change in appearance of the chest. Electronically signed by: Arnoldo Qureshi M.D. 04/05/2018 7:23 PM Dictated Date/Time: 04/05/2018 7:21 PM
[2018-04-05] MEDS ORDERED: FUROSEMIDE 40 MG/4 ML VIAL IV STA (19:44)
[2018-04-05] MEDS ORDERED: CEFTRIAXONE SOD INJ 1 GM ADDVIAL IV STA (19:44)
[2018-04-05] MEDS ORDERED: NITROFURANTOIN MONOHYDRATE 100 MG CAP PO ONE (19:45)
[2018-04-05] MEDS ORDERED: NITR-5 PO (20:01)
--- NOTE | 2018-04-05 20:36 | EMERGENCY ROOM VISIT NOTE ---
History Report prepared by Cris: Pili Roblero Under the Supervision of: Dr. Michael Cochran D.O. First contact with patient: 18:18 Chief Complaint: EDEMA TO EXTREMITY Stated Complaint: SWELLING IN LEGS AND FEET History of Present Illness The patient is an 87 year old female who presents to the Emergency Room with complaints of worsening leg swelling starting 2 days ago. The patient has a history of CHF and kidney disease. She is on Lasix 20 mg. She monitors her sodium intake, but notes that she has a hard time avoiding sodium. She has not checked for weight gain. She is not SOB and has been able to lay flat. She has noticed that she is urinating less than usual. She has some pain at the bottom of her feet, but denies any pain or redness in the legs. She denies any abdominal pain. She has a history of diabetes and has had infections in her feet before. She has a history of stroke. She denies any history of heart attack or cancer. Source of History: patient Onset: 2 days ago Position: leg (bilateral) Quality: other (swelling) Timing: worsening Modifying Factors (Worsening): other (sodium) Associated Symptoms: + urinary symptoms, No SOB, No abdominal pain Review of Systems See HPI for pertinent positives & negatives. A total of 10 systems reviewed and were otherwise negative. 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 (12) Dyslipidemia (13) Foot deformity (14) History of diabetic ulcer of foot (15) Hypertension (16) Hypothyroidism (17) Lesion of labia (18) Loss of sensation (19) MRSA nasal colonization (20) Osteoporosis (21) Sleep apnea Surgical Problems: (1) History of heart artery stent (2) Status post cardiac catheterization (3) Status post cardiac pacemaker procedure (4) Status post carotid endarterectomy (5) Status post cholecystectomy (6) Status post hysterectomy Family History Diabetes mellitus Heart disease Hypertension Social History Smoking Status: Never Smoker Alcohol Use: none Drug Use: none Marital Status: Housing Status: lives alone Occupation Status: retired Current/Historical Medications Scheduled Atorvastatin (Lipitor), 20 MG PO QAM Furosemide (Lasix), 20 MG PO DAILY Hydralazine HCl (Hydralazine HCl), 50 MG PO TID Insulin Glargine (Lantus), 40 UNITS SC HS Levothyroxine Sodium (Synthroid), 100 MCG PO QAM Nitrofurantoin Monohyd Macrocr (Macrobid), 100 MG PO BID Nitroglycerin (Nitrostat), 0.4 MG UT PRN Ondasetron Odt (Zofran Odt), 4 MG SL Q6H Warfarin Sod (Jantoven), 2.5 MG PO 3XWK Warfarin Sodium (Warfarin Sodium), 5 MG PO 4XWK Scheduled PRN Alprazolam (Xanax), 0.25 MG PO BID PRN for Anxiety Allergies Coded Allergies: Codeine (Verified Allergy, Intermediate, 04/05/18) Adhesives (Verified Allergy, Unknown, red;itchy skin, 04/05/18) Physical Exam Vital Signs Date Time Temp Pulse Resp B/P (MAP) Pulse Ox O2 Delivery O2 Flow Rate FiO2 04/05/18 18:51 95 Room Air 04/05/18 18:13 36.4 65 18 157/66 95 Room Air Physical Exam GENERAL: Patient is awake, alert, and in no acute distress. Patient is resting comfortably and showing no signs of anxiety EYES: The conjunctivae are clear. The pupils are round and reactive. EARS, NOSE, MOUTH AND THROAT: The nose is without any evidence of any deformity. Mucous membranes are moist tongue is midline NECK: The neck is nontender and supple. RESPIRATORY: Normal respiratory effort is noted there is no evidence of wheezing rhonchi or rales CARDIOVASCULAR: Regular rate and rhythm noted to auscultation. Systolic murmur was suggested. GASTROINTESTINAL: The abdomen is soft. Bowel sounds are present in all quadrants. Abdomen is nontender MUSCULOSKELETAL/EXTREMITIES: There is no evidence of gross deformity full range of motion is noted in the hips and shoulders SKIN: There is pedal edema bilaterally. No erythema or signs of cellulitis noted. NEUROLOGIC: Patient is awake alert and oriented x3 Medical Decision & Procedures ER Provider Diagnostic Interpretation: X-ray results as stated below per interpretation by me and the radiologist. CHEST ONE VIEW PORTABLE CLINICAL HISTORY: EVALUATE RESPIRATORY DISTRESS.DYSPNEA COMPARISON STUDY: Chest radiograph January 24, 2018. FINDINGS: Dual-lead left subclavian pacer leads are unchanged in position. There is no pneumothorax or pleural effusion. Apparent hazy left basilar opacity is likely artifactual. Moderate cardiomegaly is noted without evidence for pulmonary edema. The appearance of the chest is unchanged. IMPRESSION: No acute cardiopulmonary findings. Stable cardiomegaly without evidence for pulmonary edema. No change in appearance of the chest. Electronically signed by: Arnoldo Qureshi M.D. 04/05/2018 7:23 PM Dictated Date/Time: 04/05/2018 7:21 PM Laboratory Results 04/05/18 18:48 Red Blood Count 4.08, Mean Corpuscular Volume 98.3, Mean Corpuscular Hemoglobin 31.1, Mean Corpuscular Hemoglobin Concent 31.7, Mean Platelet Volume 8.8, Neutrophils (%) (Auto) 71.8, Lymphocytes (%) (Auto) 16.6, Monocytes (%) (Auto) 7.7, Eosinophils (%) (Auto) 3.3, Basophils (%) (Auto) 0.4, Neutrophils # (Auto) 3.46, Lymphocytes # (Auto) 0.80, Monocytes # (Auto) 0.37, Eosinophils # (Auto) 0.16, Basophils # (Auto) 0.02 04/05/18 18:48 Test 04/05/18 18:48 04/05/18 19:08 White Blood Count 4.82 K/uL (4.8-10.8) Red Blood Count 4.08 M/uL (4.2-5.4) Hemoglobin 12.7 g/dL (12.0-16.0) Hematocrit 40.1 % (37-47) Mean Corpuscular Volume 98.3 fL (80-100) Mean Corpuscular Hemoglobin 31.1 pg (25-34) Mean Corpuscular Hemoglobin Concent 31.7 g/dl (32-36) Platelet Count 152 K/uL (130-400) Mean Platelet Volume 8.8 fL (7.4-10.4) Neutrophils (%) (Auto) 71.8 % Lymphocytes (%) (Auto) 16.6 % Monocytes (%) (Auto) 7.7 % Eosinophils (%) (Auto) 3.3 % Basophils (%) (Auto) 0.4 % Neutrophils # (Auto) 3.46 K/uL (1.4-6.5) Lymphocytes # (Auto) 0.80 K/uL (1.2-3.4) Monocytes # (Auto) 0.37 K/uL (0.11-0.59) Eosinophils # (Auto) 0.16 K/uL (0-0.5) Basophils # (Auto) 0.02 K/uL (0-0.2) RDW Standard Deviation 52.5 fL (36.4-46.3) RDW Coefficient of Variation 14.8 % (11.5-14.5) Immature Granulocyte % (Auto) 0.2 % Immature Granulocyte # (Auto) 0.01 K/uL (0.00-0.02) Prothrombin Time 28.1 SECONDS (9.0-12.0) Prothromb Time International Ratio 2.7 (0.9-1.1) Activated Partial Thromboplast Time 43.6 SECONDS (21.0-31.0) Partial Thromboplastin Ratio 1.7 Anion Gap 7.0 mmol/L (3-11) Est Creatinine Clear Calc Drug Dose 17.0 ml/min Estimated GFR () 21.8 Estimated GFR (Non- 18.9 BUN/Creatinine Ratio 16.3 (10-20) Calcium Level 8.2 mg/dl (8.5-10.1) Magnesium Level 2.7 mg/dl (1.8-2.4) Total Bilirubin 0.4 mg/dl (0.2-1) Aspartate Amino Transf (AST/SGOT) 21 U/L (15-37) Alanine Aminotransferase (ALT/SGPT) 27 U/L (12-78) Alkaline Phosphatase 78 U/L (45-117) Troponin I < 0.015 ng/ml (0-0.045) Pro-B-Type Natriuretic Peptide 8268 pg/ml (0-1800) Total Protein 7.3 gm/dl (6.4-8.2) Albumin 3.1 gm/dl (3.4-5.0) Globulin 4.2 gm/dl (2.5-4.0) Albumin/Globulin Ratio 0.7 (0.9-2) Urine Color YELLOW Urine Appearance CLOUDY (CLEAR) Urine pH 6.0 (4.5-7.5) Urine Specific Meigs 1.018 (1.000-1.030) Urine Protein 2+ (NEG) Urine Glucose (UA) TRACE (NEG) Urine Ketones NEG (NEG) Urine Occult Blood 1+ (NEG) Urine Nitrite POS (NEG) Urine Bilirubin NEG (NEG) Urine Urobilinogen NEG (NEG) Urine Leukocyte Esterase MODERATE (NEG) Urine WBC (Auto) >30 /hpf (0-5) Urine RBC (Auto) 10-30 /hpf (0-4) Urine Hyaline Casts (Auto) 5-10 /lpf (0-5) Urine Epithelial Cells (Auto) 20-30 /lpf (0-5) Urine Bacteria (Auto) 4+ (NEG) Laboratory results per my review. Medications Administered Medications (Trade) Dose Ordered Sig/Danisha Route Start Time Stop Time Status Last Admin Dose Admin Furosemide (Lasix Inj) 20 mg NOW STAT IV 04/05/18 19:44 04/05/18 19:45 DC 04/05/18 19:56 20 MG Ceftriaxone Sodium (Rocephin Inj) 1 gm NOW STAT IV 04/05/18 19:44 04/05/18 19:45 DC 04/05/18 19:56 1 GM Nitrofurantoin Macrocrystals (Macrobid Cap) 100 mg ONE ONCE PO 04/05/18 19:45 04/05/18 19:46 DC 04/05/18 19:58 100 MG ECG Per My Interpretation Indication: other Rate (beats per minute): 60 Rhythm: other (ventricular paced) Findings: other (no PVC, no qawalangin beats) Comparison ECG Date: 24-Jan-2018 Change: no significant change ED Course 1820: The patient was evaluated in room A10. A complete history and physical examination were performed. 1942: I reevaluated the patient. I updated her on the results. 1943: Rocephin Inj 1 gm IV, Lasix Inj 20 mg IV. 1944: Macrobid Cap 100 mg PO. 2029: Upon reevaluation, the patient is resting comfortably. I discussed the results and treatment plan with her. She verbalized agreement of the treatment plan. She was discharged home. Medical Decision Prior records/ancillary studies reviewed. Triage Nursing notes reviewed. Differential diagnosis: Etiologies such as infections, reactive airway disease, pneumonia, pneumothorax , COPD, CHF, cardiac ischemia, pulmonary embolism, musculoskeletal, gastrointestinal, as well as others were entertained. The patient is an 87-year-old female who has a history of congestive heart failure who presented to the emergency department for an evaluation of lower extremity edema. The patient did not have difficulty breathing or a history of orthopnea. Her EKG did not appear to have significant change from previous. The patient's cardiac biomarkers was negative. The patient's creatinine was elevated but appears to be near baseline. She states that she has been compliant with her Lasix. I discussed patient's laboratory and radiographic studies with her. She was treated with a dose of IV Lasix. She was also found to have a heart murmur in the emergency department. The patient has follow-up appointments with her aquatic ecologist as well as her primary cardiology group. She was given a dose of IV Rocephin in the emergency department. I reviewed the patient's recent urine cultures does show that this may not cover her urinary tract infection so she was also started on Macrobid. She was encouraged to follow-up with her primary care physician as soon as possible. She was also encouraged to continue all medications as prescribed. She was also encouraged to return to the emergency department immediately if symptoms change worsen or the need arises. Medication Reconcilliation Current Medication List: was personally reviewed by me Blood Pressure Screening Patient's blood pressure: Elevated blood pressure Blood pressure disposition: Referred to PCP Impression Primary Impression: Peripheral edema Additional Impressions: UTI (urinary tract infection) Heart murmur Scribe Attestation The scribe's documentation has been prepared under my direction and personally reviewed by me in its entirety. I confirm that the note above accurately reflects all work, treatment, procedures, and medical decision making performed by me. Departure Information Dispostion Home / Self-Care Prescriptions Nitrofurantoin Monohyd Macrocr (Macrobid) 100 Mg Cap 100 MG PO BID, #14 CAP Prov: Michael Cochran, DO 04/05/18 Referrals Lamonte Thorne D.OAmber (PCP) Forms HOME CARE DOCUMENTATION FORM, IMPORTANT VISIT INFORMATION, WORK / SCHOOL INSTRUCTIONS Patient Instructions ED Leg Swelling Bilateral, My [facility], Urinary Tract Infecs Women Additional Instructions Continue all medications as prescribed. Rest and avoid any strenuous activity. Drink plenty of liquids. Follow-up with your psychologist counseling as well as her aquatic ecologist this week as scheduled. Return to the emergency department immediately if symptoms change worsen or the need arises. Problem Qualifiers Additional Impressions: UTI (urinary tract infection) Urinary tract infection type: acute cystitis Hematuria presence: without hematuria Qualified Codes: N30.00 - Acute cystitis without hematuria
[2018-04-05 20:51] VITALS: BP 188/83; PULSE 70; O2SAT 96
== END 2018-04-05 20:52 | disposition home or self-care (01) ==
LOC: C.EDB 18:13 → C.EDA 20:52
DX: R60.0 Localized edema (principal); N39.0 Urinary tract infection, site not specified; R01.1 Cardiac murmur, unspecified; N18.4 Chronic kidney disease, stage 4 (severe); I12.9 Hypertensive chronic kidney disease with stage 1 through stage 4 chronic kidney disease, or unspecified chronic kidney disease; E11.40 Type 2 diabetes mellitus with diabetic neuropathy, unspecified; I50.9 Heart failure, unspecified; Z79.4 Long term (current) use of insulin; Z79.01 Long term (current) use of anticoagulants; Z79.899 Other long term (current) drug therapy; Z86.73 Personal history of transient ischemic attack (TIA), and cerebral infarction without residual deficits; I48.91 Unspecified atrial fibrillation; I25.10 Atherosclerotic heart disease of native coronary artery without angina pectoris; E78.5 Hyperlipidemia, unspecified; E03.9 Hypothyroidism, unspecified; Z86.14 Personal history of Methicillin resistant Staphylococcus aureus infection; M81.0 Age-related osteoporosis without current pathological fracture; Z95.5 Presence of coronary angioplasty implant and graft; Z90.710 Acquired absence of both cervix and uterus; Z90.49 Acquired absence of other specified parts of digestive tract; Z95.0 Presence of cardiac pacemaker; Z83.3 Family history of diabetes mellitus; Z82.49 Family history of ischemic heart disease and other diseases of the circulatory system; Z88.5 Allergy status to narcotic agent; Z91.048 Other nonmedicinal substance allergy status

== ENCOUNTER 2020-11-21 16:45 | Inpatient (IN) ==
--- NOTE | 2020-11-21 17:12 | Emergency Department Note ---
Impression & Plan Fall, Left leg pain, COVID-19, Non-ST elevation LA (NSTEMI) ED Provider Note Provider: Brannno Dela Cruz MD DATE OF SERVICE:11/21/2020 CHIEF COMPLAINT: Leg pain, cough, weakness HISTORY OF PRESENT ILLNESS: Patient is a 89-year-old female with a history of type 2 diabetes, CAD, hypertension, CHF, atrial fibrillation, CKD, tachybradycardia syndrome presenting today via ambulance from her residence for 2 primary issues. Patient states last night around 3 AM she went to use the bathroom using her walker as normal. Patient states he frequently uses the bathroom at night. Patient states when she went to get off the toilet she we can fell towards her side and got stuck between the wall and the toilet and used her med alert button. Patient was extremely clear that she did not fall and str lai her head. EMS evaluated her and she was able to ambulate with their assistance back to bed and refused transport to the ER. Patient states she is been unable to get a bed today and is now having pain predominantly behind the left knee and has been unable to walk. Denies significant numbness in the lower extremities at this time. Patient states she was able to take her morning meds but has not take anything for pain has her doctor limits her medications due to her kidney function. Patient states aides come and assist her in the afternoon and did help dress her today. She had some Ensure but no other significant intake today. She reports she felt weak and had a productive cough and fever and thus came here for evaluation. Patient states she is had a cough on and off at times thought it might be related to the CPAP she uses at night. Does endorse some sinus congestion and sore throat. Denies chest pain or abdominal pain or nausea. Denies significant diarrhea. REVIEW OF SYSTEMS: A total of 10 review of systems was obtained and negative except as stated above in the HPI. PAST MEDICAL HISTORY: As noted above MEDICATIONS: Reviewed home medication list. SOCIAL HISTORY: Lives alone in apartment with some caregiver support in the afternoon PHYSICAL EXAM: GENERAL: alert and oriented in no acute distress on stretcher Head: normocephalic and atraumatic EYES: No injection, discharge or icterus. NECK: Trachea midline. Supple. No posterior midline tenderness. ENT: Mucous membranes pink and moist. LUNGS: Airway patent. No retractions. No tachypnea. Moist cough appreciated. HEART: Regular rate and rhythm. No chest wall tenderness ABDOMEN: Soft and non-tender, without guarding or rebound. SKIN: Acyanotic, warm, dry, without rashes EXTREMITIES: Without swelling or obvious deformity. 2+ bilateral DP pulses in the feet. Pain with passive ROM behind the left knee. NEUROLOGICAL: No aphasia. No facial droop or slurred speech. Sensation to gross touch normal in b/l LEs. EK bpm ventricularly paced rhythm without PVC or PAC. No acute ST segment elevation is noted. Compared to previous from December 31, 2019 no significant change. CONTINUOUS CARDIAC MONITORING: was ordered and showed a heart rate of 60 bpm in ventricular paced rhythm GCS 15. Patient's laboratory studies and imaging reviewed. Differential includes Infection, dehydration, metabolic abnormality, hypo/hyperglycemia, electrolyte disturbance, anemia, hypoxia, cardiac sources, intracerebral event, toxicologic, neurologic, as well as other pathologies. IMPRESSION/MEDICAL DECISION MAKING: Patient presents after mild fall last night now with some pain in her left leg unable to ambulate but was able ambulate initially. X-rays of the femur and knee were obtained. Per radiology no evidence of focal pneumonia or fractures were noted on the x-rays. No significant tenderness of the lower leg ankle or foot appreciated. Neuro intact in the left leg but movement limited secondary to pain. Patient has no stigmata of other significant injury to the extremities. Patient denies striking her head or neck tenderness. No believe any cervical imaging based on Nexus criteria as she did not strike her head lower suspicion for acute and cranial bleed. Patient reports cough and URI symptoms. Covid testing will completed and x-ray obtained question possible viral versus bacterial infection. Patient is febrile here but declines pain medicines. Will attempt to use a small amount of Tylenol to help given the fever. Blood work returns without significant cytosis or anemia. INR is 1.5. Electrolytes show a creatinine of 2.59 near her baseline. No lactate elevation. No evidence of hepatitis. TSH within normal limits. Coronavirus test comes back positive and may explain her symptoms of fatigue and weakness. Troponin is elevated and has a history of aortic stenosis but denies chest pain at this point. Likely not in any significant respiratory distress at this point. We will give a dose of aspirin if she is willing to take it. Likely not hypoxic but given she lives alone and is significantly weak believe further care at the hospital is reasonable. Patient was in agreement. With her permission updated her family via phone. DIAGNOSIS: Fall, COVID-19 DISPOSITION: Hospitalist will evaluate Patient was agreeable with this plan. Critical Care I have personally spent 32 minutes of critical care time in the direct management of this patient. This includes bedside care, interpretation of diagnostic studies, and testing, discussion with consultants, patient, and family members, and other required patient management activities. These 32 minutes is in excess of all separately billable procedures. Past Med/Surg History Medical History Acquired claw toe of left foot Acquired claw toe of right foot Acquired hallux valgus of right foot Acquired hammer toe of right foot Anticoagulated on warfarin Atrial fibrillation Cerebrovascular disease CHF (congestive heart failure) "left ventricular systolic failure, LVEF 35% with subsequent normalization of EF" On 10/15/14 15:09 Bob Villa wrote "left ventricular systolic failure, LVEF 35%" Chronic kidney disease (CKD), stage IV (severe) Closed fracture of left hip requiring operative repair Coronary artery disease "2007 - MARITZA to LAD x 2" 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, type II Diabetic neuropathy Dyslipidemia Hallux valgus (acquired), left foot Hammertoe of left foot Hypertension Hypothyroidism Lichen sclerosus et atrophicus MRSA nasal colonization Osteoporosis Right-sided congestive heart failure Sleep apnea "intolerant of CPAP" Stroke Tachy-margaret syndrome Vitamin D deficiency Surgical History H/O hemorrhoidectomy History of colon surgery History of hip surgery History of tubal ligation Pacemaker Status post carotid endarterectomy "left" Status post cholecystectomy Status post hysterectomy Family History Father Hypertension Mother Hypertension Other Diabetes Heart disease Social History Smoking Status: Former smoker Tobacco Type: Cigarettes Second Hand Exposure: No; Do You Dip or Chew Tobacco: No; Hx Alcohol Use: No Hx Substance Use: No Preferred Language: Croatian Communication Ability: Effective Visual Impairment: Limited Hearing Ability: Normal [employer] Required: No Beliefs That Will Affect Care: None marital status: / Current Living Situation: Alone Current Living Situation Comment: [facility], FAMILY LIVES CLOSE ([place]) current occupational status: retired Other Information That Helps Us Care for You: No Feels Safe at Home: Yes Safety Concerns: Feels Safe At This Time during the past year weight has: remained stable Assistive Devices: CPAP, Denture - Upper, Denture - Lower, Glasses and Walker Allergies Allergies Allergy/AdvReac Type Severity Reaction Status Date / Time codeine Allergy Intermediate Unknown Verified 11/21/20 20:59 adhesive Allergy Unknown red;itchy Verified 11/21/20 20:59 skin Home Meds Home Medications Medication Instructions Recorded Confirmed alprazolam [Xanax] 0.25 mg PO BID PRN 09/10/18 11/21/20 atorvastatin [Lipitor] 20 mg PO QAM 09/10/18 11/21/20 carvedilol [Coreg] 6.25 mg PO BID 09/10/18 11/21/20 furosemide [Lasix] 40 mg PO QAM 09/10/18 11/21/20 insulin glargine [Lantus U-100 0 unit SUBCUT 09/10/18 11/21/20 Insulin] potassium chloride 10 mg PO BID 09/10/18 11/21/20 warfarin [Jantoven] 2.5 mg PO .QHS UD 09/10/18 11/21/20 aspirin 81 mg PO HS 09/08/19 11/21/20 hydralazine 50 mg PO BID 09/08/19 11/21/20 levothyroxine [Synthroid] 100 mcg PO QAM 09/08/19 11/21/20 loperamide [Imodium A-D] 2 mg PO Q3H PRN 10/05/19 11/21/20 isosorbide mononitrate 30 mg PO DAILY 12/31/19 11/21/20 insulin aspart U-100 [Novolog 1 sliding scale dose SUBCUT 11/21/20 11/21/20 U-100 Insulin aspart] USEASDIRECTD Results & Data (ED) Vital Signs Vital Signs - 24 hr 11/21/20 16:58 11/21/20 17:00 11/21/20 17:02 Temperature 38.5 C H Temperature Source Oral Pulse Rate 63 61 60 Pulse Rate from SpO2 Sensor 60 60 Pulse Rhythm Regular Pulse Strength Normal Respiratory Rate 20 27 H 27 H Respiratory Effort / Characteristics Non-Labored Spontaneous Respiratory Depth Normal Respiratory Pattern Regular Blood Pressure 134/78 151/58 H Blood Pressure Mean 96 106 Pulse Oximetry 92 94 94 Oxygen Delivery Method Room Air Sepsis Recent Fever Within 48 Hours Yes Sepsis New/Unexplained Change in Mental Status N/A Sepsis Action Taken by Nursing No Action Required 11/21/20 17:30 11/21/20 17:31 11/21/20 18:00 Temperature Temperature Source Pulse Rate 60 60 60 Pulse Rate from SpO2 Sensor 60 60 60 Pulse Rhythm Pulse Strength Respiratory Rate 26 H 23 24 Respiratory Effort / Characteristics Respiratory Depth Respiratory Pattern Blood Pressure 152/63 H Blood Pressure Mean 101 Pulse Oximetry 94 93 92 Oxygen Delivery Method Sepsis Recent Fever Within 48 Hours Sepsis New/Unexplained Change in Mental Status Sepsis Action Taken by Nursing 11/21/20 18:01 11/21/20 18:02 11/21/20 18:30 Temperature Temperature Source Pulse Rate 62 60 60 Pulse Rate from SpO2 Sensor 59 L 60 60 Pulse Rhythm Pulse Strength Respiratory Rate 25 H 28 H 28 H Respiratory Effort / Characteristics Respiratory Depth Respiratory Pattern Blood Pressure 138/66 157/65 H Blood Pressure Mean 115 77 Pulse Oximetry 94 94 93 Oxygen Delivery Method Sepsis Recent Fever Within 48 Hours Sepsis New/Unexplained Change in Mental Status Sepsis Action Taken by Nursing 11/21/20 18:31 11/21/20 19:00 11/21/20 19:31 Temperature Temperature Source Pulse Rate 60 62 60 Pulse Rate from SpO2 Sensor 60 61 60 Pulse Rhythm Pulse Strength Respiratory Rate 20 18 18 Respiratory Effort / Characteristics Respiratory Depth Respiratory Pattern Blood Pressure 160/70 H 139/46 L Blood Pressure Mean 116 57 Pulse Oximetry 94 94 93 Oxygen Delivery Method Room Air Sepsis Recent Fever Within 48 Hours Sepsis New/Unexplained Change in Mental Status Sepsis Action Taken by Nursing 11/21/20 20:02 11/21/20 20:31 11/21/20 21:04 Temperature Temperature Source Pulse Rate 60 67 Pulse Rate from SpO2 Sensor 56 L 69 Pulse Rhythm Pulse Strength Respiratory Rate 23 18 Respiratory Effort / Characteristics Respiratory Depth Respiratory Pattern Blood Pressure 153/102 H 113/55 L Blood Pressure Mean 107 145 74 Pulse Oximetry 94 95 Oxygen Delivery Method Room Air Room Air Sepsis Recent Fever Within 48 Hours Sepsis New/Unexplained Change in Mental Status Sepsis Action Taken by Nursing Laboratory Data Result diagrams: 11/21/20 17:28 11/21/20 17:28 Lab Results 11/21/20 11/21/20 11/21/20 Range/Units 17:28 17:28 17:28 WBC 8.93 (4.8-10.8) K/uL RBC 4.09 L (4.2-5.4) M/uL Hgb 12.7 (12.0-16.0) g/dL Hct 39.3 (37-47) % MCV 96.1 (80-100) fL MCH 31.1 (25-34) pg MCHC 32.3 (32-36) g/dL RDW Std Deviation 51.5 H (36.4-46.3) fL RDW Coeff of Jo Ann 14.5 (11.5-14.5) % Plt Count 167 (130-400) K/uL MPV 9.2 (7.4-10.4) fL Immature Gran % (Auto) 0.3 % Neut % (Auto) 86.2 % Lymph % (Auto) 6.8 % Hidalgo % (Auto) 6.3 % Eos % (Auto) 0.3 % Baso % (Auto) 0.1 % Neut # (Auto) 7.69 H (1.4-6.5) K/uL Lymph # (Auto) 0.61 L (1.2-3.4) K/uL Hidalgo # (Auto) 0.56 (0.11-0.59) K/uL Eos # (Auto) 0.03 (0-0.5) K/uL Baso # (Auto) 0.01 (0-0.2) K/uL Immature Gran # (Auto) 0.03 H (0.00-0.02) K/uL PT 15.1 H (9.0-12.0) Seconds INR 1.5 H (0.9-1.1) Sodium 136 (136-145) mmol/L Potassium 3.8 (3.5-5.1) mmol/L Chloride 104 (98-107) mmol/L Carbon Dioxide 19 L (21-32) mmol/L Anion Gap 12.0 H (3-11) BUN 55 H (7-18) mg/dl Creatinine 2.59 H (0.6-1.2) mg/dl Est Cr Clr Drug Dosing 14.9 ml/min Est GFR ( Amer) 18.4 Est GFR (Non-Af Amer) 15.9 BUN/Creatinine Ratio 21.4 H (10-20) Glucose 208 H (70-99) mg/dl Lactate (0.4-2.0) mmol/L Calcium 8.9 (8.5-10.1) mg/dl Magnesium 2.6 H (1.8-2.4) mg/dl Total Bilirubin 0.6 (0.2-1) mg/dl AST 44 H (15-37) U/L ALT 29 (12-78) U/L Alkaline Phosphatase 67 (45-117) U/L Troponin I 0.127 H* (0-0.045) ng/ml Total Protein 7.2 (6.4-8.2) gm/dl Albumin 2.8 L (3.4-5.0) gm/dl Globulin 4.4 H (2.5-4.0) gm/dl Albumin/Globulin Ratio 0.6 L (0.9-2) TSH 0.422 (0.300-4.500) uIu/ml Specimen Hemolysis COVID-19 Eval Order SARS-CoV-2, RNA, NAAT (NEGATIVE) 11/21/20 11/21/20 11/21/20 Range/Units 17:50 17:50 18:04 WBC (4.8-10.8) K/uL RBC (4.2-5.4) M/uL Hgb (12.0-16.0) g/dL Hct (37-47) % MCV (80-100) fL MCH (25-34) pg MCHC (32-36) g/dL RDW Std Deviation (36.4-46.3) fL RDW Coeff of Jo Ann (11.5-14.5) % Plt Count (130-400) K/uL MPV (7.4-10.4) fL Immature Gran % (Auto) % Neut % (Auto) % Lymph % (Auto) % Hidalgo % (Auto) % Eos % (Auto) % Baso % (Auto) % Neut # (Auto) (1.4-6.5) K/uL Lymph # (Auto) (1.2-3.4) K/uL Hidalgo # (Auto) (0.11-0.59) K/uL Eos # (Auto) (0-0.5) K/uL Baso # (Auto) (0-0.2) K/uL Immature Gran # (Auto) (0.00-0.02) K/uL PT (9.0-12.0) Seconds INR (0.9-1.1) Sodium (136-145) mmol/L Potassium (3.5-5.1) mmol/L Chloride (98-107) mmol/L Carbon Dioxide (21-32) mmol/L Anion Gap (3-11) BUN (7-18) mg/dl Creatinine (0.6-1.2) mg/dl Est Cr Clr Drug Dosing ml/min Est GFR ( Amer) Est GFR (Non-Af Amer) BUN/Creatinine Ratio (10-20) Glucose (70-99) mg/dl Lactate 1.5 (0.4-2.0) mmol/L Calcium (8.5-10.1) mg/dl Magnesium (1.8-2.4) mg/dl Total Bilirubin (0.2-1) mg/dl AST (15-37) U/L ALT (12-78) U/L Alkaline Phosphatase (45-117) U/L Troponin I (0-0.045) ng/ml Total Protein (6.4-8.2) gm/dl Albumin (3.4-5.0) gm/dl Globulin (2.5-4.0) gm/dl Albumin/Globulin Ratio (0.9-2) TSH (0.300-4.500) uIu/ml Specimen Hemolysis COVID-19 Eval Order Covid19 IDNow [facility] SARS-CoV-2, RNA, NAAT POSITIVE A* (NEGATIVE) Administered Medications Discontinued Medications Aspirin (Aspirin Chew 324 Mg) 324 mg PO NOW STA Stop: 11/21/20 19:49 Last Admin: 11/21/20 19:55 Dose: 324 mg Documented by: [id number] Sodium Chloride (Nss) 500 mls @ 999 mls/hr IV .Q31M ONE Stop: 11/21/20 20:18 Last Infusion: 11/21/20 20:49 Dose: 0 mls/hr Documented by: [id number] Admin: 11/21/20 19:55 Dose: 999 mls/hr Documented by: [id number] Discharge Plan Visit Data Chief Complaint: Illness Stated Complaint: FALL/LEG PAIN ED Provider: Brannon Dela Cruz Discharge Problem: Fall, Left leg pain, COVID-19, Non-ST elevation LA (NSTEMI) Patient Disposition: Being Evaluated by Hospitalist Discharge Instructions Interventions: ED Discharge Assessment Last Done: 11/21/20 21:36 Discharge Problem: Fall Qualifiers: Encounter type: initial encounter Qualified Code(s): W19.XXXA - Unspecified fall, initial encounter
--- NOTE | 2020-11-21 17:39 | XRay Report ---
XR knee LT 3V, XR femur LT 2V routine CLINICAL HISTORY: Fall. Left femur and knee pain. COMPARISON STUDY: None. FINDINGS: The bones are osteopenic. Small knee effusion. Vascular calcifications are noted. Mild tric ompartmental osteoarthritis within the left knee and mild osteoarthritis within the left hip. Prior i nternal fixation of a proximal left femoral fracture with a intramedullary denise and interlocking femor al neck pin. The hardware appears intact. No acute fracture or dislocation within the left femur or l eft knee. The visualized pelvic bones also appear intact. IMPRESSION: 1. No acute fracture or dislocation within the left femur left knee. 2. Small left knee effusion. 3. Additional chronic and postoperative changes as described above. ACT 112: Negative or not required by law. Electronically signed by: Luigi Rodrigez M.D. 11/21/2020 5:38 PM
--- NOTE | 2020-11-21 17:41 | XRay Report ---
XR chest 1V portable HISTORY: weakness COMPARISON: Chest 12/31/2019. FINDINGS: The heart remains enlarged. There is mild central pulmonary vascular congestion without ove rt edema. This remains unchanged. No pleural effusion. No pneumothorax. Old, healed right humeral nec k fracture is again noted. Left-sided dual-chamber pacemaker. IMPRESSION: 1. No significant change compared to the prior study. 2. Cardiomegaly with mild central pulmonary vascular congestion without overt edema. ACT 112: Negative or not required by law. Electronically signed by: Luigi Rodrigez M.D. 11/21/2020 5:40 PM
[2020-11-21 17:57] LABS: Basophils # (auto) 0.01 K/uL (0-0.2); Basophils % (auto) 0.1 %; Eosinophils # (auto) 0.03 K/uL (0-0.5); Eosinophils % (auto) 0.3 %; Hematocrit (blood only) 39.3 % (37-47); Hemoglobin 12.7 g/dL (12.0-16.0); Immature Granulocytes # (auto) 0.03 K/uL (0.00-0.02); Immature Granulocytes % (auto) 0.3 %; Lymphocytes # (auto) 0.61 K/uL (1.2-3.4); Lymphocytes % (auto) 6.8 %; Mean Corpuscular Hemoglobin 31.1 pg (25-34); Mean Corpuscular Hgb Conc 32.3 g/dL (32-36); Mean Corpuscular Volume 96.1 fL (80-100); Mean Platelet Volume 9.2 fL (7.4-10.4); Monocytes # (auto) 0.56 K/uL (0.11-0.59); Monocytes % (auto) 6.3 %; Neutrophils # (auto) 7.69 K/uL (1.4-6.5); Neutrophils % (auto) 86.2 %; Platelet Count 167 K/uL (130-400); RDW Coefficient of Variation 14.5 % (11.5-14.5); RDW Standard Deviation 51.5 fL (36.4-46.3); Red Blood Count 4.09 M/uL (4.2-5.4); White Blood Count 8.93 K/uL (4.8-10.8)
[2020-11-21 18:05] LABS: INR 1.5 (0.9-1.1); Prothrombin Time 15.1 Seconds (9.0-12.0)
[2020-11-21 19:00] LABS: Albumin Level 2.8 gm/dl (3.4-5.0); Bilirubin,Total 0.6 mg/dl (0.2-1); Calcium 8.9 mg/dl (8.5-10.1); Creatinine Clr Calc Pharmacy 14.9 ml/min; Est GFR (African American) 18.4; Est GFR (Non-African American) 15.9; Magnesium 2.6 mg/dl (1.8-2.4); Potassium 3.8 mmol/L (3.5-5.1); Thyroid Stimulating Hormone 0.422 uIu/ml (0.300-4.500); Total Protein 7.2 gm/dl (6.4-8.2)
[2020-11-21 19:01] LABS: Albumin Globulin Ratio 0.6 (0.9-2); BUN Creatinine Ratio 21.4 (10-20); Globulin 4.4 gm/dl (2.5-4.0)
[2020-11-21 19:33] LABS: Troponin I 0.127 ng/ml (0-0.045)
[2020-11-21] MEDS ORDERED: SODIUM CHLORIDE 0.9% 500 ML IV ONE (19:48)
[2020-11-21] MEDS ORDERED: ASPIRIN CHEW 324 MG PO STA (19:48)
[2020-11-21] MEDS ORDERED: ALPRAZolam 0.25 MG TABLET PO PRN (21:52)
[2020-11-21] MEDS ORDERED: NITROGLYCERIN SL 0.4 MG/TAB TAB SL PRN (21:52)
[2020-11-21] MEDS ORDERED: LOPERAMIDE HCL 2 MG CAP PO PRN (21:52)
[2020-11-21] MEDS ORDERED: ONDANSETRON INJ 2 MG/ML 2 ML VIAL IV PRN (21:52)
[2020-11-21] MEDS ORDERED: WARFARIN SOD 5 MG TAB PO ONE (21:52)
[2020-11-21] MEDS ORDERED: POLYETHYLENE (MIRALAX) 17 GM PACK PO PRN (21:52)
[2020-11-21] MEDS: INSULIN GLARGINE SOLOSTAR 100 UNITS/ML 3 ML PEN SQ SCH (22:57)
[2020-11-21] MEDS: INSULIN ASPART 100 UNITS/ML 3 ML PEN SC SCH (22:58)
[2020-11-21] MEDS: carvediloL 6.25 MG TAB PO SCH (23:04)
[2020-11-21] MEDS: hydrALAZINE TAB 50 MG TAB PO SCH (23:04)
--- NOTE | 2020-11-22 00:17 | History and Physical Report ---
DATE OF ADMISSION: 11/21/2020 CHIEF COMPLAINT: Fall and weakness. HISTORY OF PRESENT ILLNESS: This 89-year-old female with past medical history significant for type 2 diabetes, diabetic neuropathy, hypothyroidism, hyperlipidemia, hyperparathyroidism, chronic kidney disease IV, hypertension, CAD, history of systolic CHF, moderate Aortic stenosis,moderate mitral regurgitation, obstructive sleep apnea, chronic atrial fibrillation, vitamin D deficiency, renal osteodystrophy, status post cardiac pacemaker, status post angioplasty with stent, anxiety. Lives in an apartment. She gets help with an aide a couple of hours 2 times a week, ambulates with a walker. Presents because she fell yesterday in her apartment. She says she is taking Lasix and she has to go every night to the bathroom to move her bladder. Last night when she was going, she suddenly lost balance and fell on the left side. She did not lose consciousness. She did not hit the head. She was able to get up, but having difficulty putting weight on the leg today and was advised to come to the hospital. In the ER she was found to have temperature spike and also her COVID came back positive. She does not know how she got the COVID. But she has cough for 1 week and runny nose for 1 week. She did not feel any fever at home. No loss of appetite. No loss of sense or smell or taste. No headache, no blurred vision, no earache, no sore throat, no chest pain, no shortness of breath, no nausea, no abdominal pain. Normal bowel and bladder movements. No swelling in the legs, no rash. Currently resting comfortably and hemodynamically stable, saturating fine on room air. ALLERGIES: CODEINE, ADHESIVES. PAST MEDICAL HISTORY: As mentioned above. PAST SURGICAL HISTORY: Colonoscopy with biopsy, hemorrhoidectomy, back surgery, dual chamber pacemaker, laparoscopic hysterectomy, ligation of oviducts, cholecystectomy, left hip fracture repair, left carotid endarterectomy. MEDICATIONS: The patient is on Xanax 0.25 mg p.o. b.i.d. p.r.n., aspirin 81 mg p.o. at bedtime, Lipitor 20 mg p.o. a.m., Coreg 6.25 mg p.o. b.i.d., Lasix 40 mg p.o. a.m., hydralazine 50 mg p.o. b.i.d., NovoLog sliding scale, Lantus 23 units at bedtime, isosorbide mononitrate 30 mg p.o. daily, Synthroid 100 mcg p.o. daily, Imodium 2 mg p.o. q. 3 hours p.r.n., potassium chloride 10 mEq p.o. b.i.d., Coumadin as directed. FAMILY HISTORY: Significant for father has hypertension. Mother has hypertension. SOCIAL HISTORY: , lives alone. Former smoker, quit in 1970. Alcohol occasionally. No drug use. REVIEW OF SYMPTOMS: As per HPI. Rest of review of systems negative. PHYSICAL EXAMINATION: GENERAL: The patient is moderate build, not in acute distress. VITAL SIGNS: Temperature 38.5, pulse 67, respiratory rate 18, blood pressure 113/55, oxygen 95% on room air. HEENT: Pupils equal, round, and reactive to light. Oral mucosa moist. NECK: No neck masses. Supple. CARDIOVASCULAR: S1, S2, regular rate and rhythm, no murmur, no gallop. RESPIRATORY SYSTEM: Normal AP diameter. No accessory muscle use. No wheezing, no crackles. ABDOMEN: Soft, bowel sounds present, nontender. No distention. CENTRAL NERVOUS SYSTEM: Cranial nerves II-XII grossly intact. Nonfocal. EXTREMITIES: No edema, no erythema seen. MUSCULOSKELETAL: Left lower extremity painful movements. LABORATORY DATA: WBC 8.9, hemoglobin 12.7, hematocrit 39.3, platelets 167. PT 15.1, INR 1.5. Sodium 136, potassium 3.8, chloride 104, bicarbonate 19, BUN 55, creatinine 2.59, serum glucose 208. Lactate 1.5, calcium 8.9, magnesium 2.6, total bilirubin 0.6, AST 44, ALT 29, alkaline phosphatase 67. Troponin 0.12. TSH 0.4. SARS-CoV-2 RNA positive. IMAGING: Left knee x-ray and left femur x-ray, no fractures seen. Chest x-ray, no acute findings seen. EKG: Ventricular paced rhythm, rate of 60, no significant change was found. ASSESSMENT AND PLAN: This 89-year-old female presents with fall at home and also found to have COVID positive. 1. COVID positive, the patient seemed to have cough and runny nose for 1 week .Saturating fine on room air. Chest x-ray looks fine. Does not meet criteria for remdesivir. We will start her on Decadron 6 mg daily, and monitor her sugars. 2. Falls most likely from ongoing illness. ambulatory dysfunction. Imaging studies ok.PT and OT when stable. 3. Mild elevation of troponin, could be from her kidney disease or could be demand ischemia from ongoing illness. We will follow serial enzymes. Currently asymptomatic. EKG okay. 4.Afib. Tacy margaret syndrome s/p pace maker. The patient is on rate control with Coreg.On Coumadin. INR is 1.5. We will follow the PT/INR. 4., history of coronary artery disease status post stent, on aspirin, statin, beta loren and nitrate. Currently stable. 5. History of diabetes. Continue home Lantus .Insulin sliding scale. Follow the blood sugars. 6. Hypertension. Continue hydralazine, Coreg, Lasix, Imdur. We will monitor the blood pressure. 7. Chronic kidney disease stage IV. Baseline creatinine 2.2-2.3, current creatinine of 2.5. We will follow the labs. Continue diuretics. 8. 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 H xof right sided HF.Last echo in 07/2020 EF was 55%. Continue home diuretics, Coreg, hydralazine and nitrate. Monitor for any volume overload. 9.ALISSA on cpap q hs. 10. Hypothyroidism. Continue Synthroid. 11. Hyperlipidemia. Continue statin. 12. Anxiety. Continue alprazolam p.r.n. 13. Hx of Cva on aspirin and statin. 14. hx of Carotid stenosis. s/p left CEA. On aspirin and statin. 13. Deep venous thrombosis prophylaxis, on Coumadin. We will follow the PT/INR. We will place him on SCDs while INR is subtherapeutic. DISPOSITION: Observe in med tele. PT and OT prior to discharge. Social Service to help with discharge planning. Level 1 full code as per my discussion with the patient. MTDD
[2020-11-22] MEDS: LEVOTHYROXINE SODIUM 100 MCG TABLET PO SCH (05:44)
[2020-11-22 05:52] LABS: Eosinophils # (auto) 0.07 K/uL (0-0.5); Hematocrit (blood only) 40.4 % (37-47); Hemoglobin 12.7 g/dL (12.0-16.0); Immature Granulocytes # (auto) 0.02 K/uL (0.00-0.02); Immature Granulocytes % (auto) 0.3 %; Lymphocytes # (auto) 0.62 K/uL (1.2-3.4); Lymphocytes % (auto) 9.1 %; Mean Corpuscular Hemoglobin 30.2 pg (25-34); Mean Corpuscular Hgb Conc 31.4 g/dL (32-36); Mean Platelet Volume 9.2 fL (7.4-10.4); Monocytes # (auto) 0.37 K/uL (0.11-0.59); Monocytes % (auto) 5.4 %; Neutrophils # (auto) 5.74 K/uL (1.4-6.5); Neutrophils % (auto) 84.2 %; Platelet Count 154 K/uL (130-400); RDW Coefficient of Variation 14.5 % (11.5-14.5); RDW Standard Deviation 51.3 fL (36.4-46.3); Red Blood Count 4.21 M/uL (4.2-5.4); White Blood Count 6.82 K/uL (4.8-10.8)
[2020-11-22 06:00] LABS: INR 1.5 (0.9-1.1); Prothrombin Time 15.2 Seconds (9.0-12.0)
[2020-11-22 06:31] LABS: Estimated Average Glucose 148 mg/dl; Hemoglobin A1C 6.8 % (4.5-5.6)
[2020-11-22 06:36] LABS: BUN Creatinine Ratio 23.6 (10-20); Calcium 8.4 mg/dl (8.5-10.1); Creatinine Clr Calc Pharmacy 13.8 ml/min; Est GFR (African American) 19.3; Est GFR (Non-African American) 16.7; Magnesium 2.9 mg/dl (1.8-2.4); Potassium 3.1 mmol/L (3.5-5.1)
[2020-11-22 06:48] LABS: Troponin I 0.105 ng/ml (0-0.045)
[2020-11-22] MEDS ORDERED: SODIUM CHLORIDE 0.9% 1000ML 1,000 ML IV SCH (07:00)
[2020-11-22] MEDS ORDERED: POTASSIUM CHLORIDE CRTAB 20 MEQ TABCR PO ONE (07:15)
[2020-11-22] MEDS: dexAMETHasone 4 MG TAB PO SCH (08:08)
[2020-11-22] MEDS: ATORVASTATIN 20 MG TAB PO SCH (08:10)
[2020-11-22] MEDS: hydrALAZINE TAB 50 MG TAB PO SCH ×2 (08:10→20:42)
[2020-11-22] MEDS: carvediloL 6.25 MG TAB PO SCH ×2 (08:10→20:42)
[2020-11-22] MEDS: ISOSORBIDE MONO EXTENDED REL 30 MG TABCR PO SCH (08:10)
[2020-11-22] MEDS: FUROSEMIDE 40 MG TAB PO SCH (08:11)
[2020-11-22] MEDS: INSULIN ASPART 100 UNITS/ML 3 ML PEN SC SCH ×4 (08:57→21:42)
[2020-11-22] MEDS ORDERED: POTASSIUM CHLORIDE 10 MEQ TABCR PO SCH (09:00)
--- NOTE | 2020-11-22 09:46 | Hospitalist Progress Note ---
Date of Service November 22, 2020 Assessment & Plan (1) Fall: (2) Left leg pain: (3) COVID-19: ASSESSMENT AND PLAN: This 89-year-old female presents with fall at home and also found to have COVID positive. 1. COVID positive, the patient seemed to have cough and runny nose for 1 week. Saturating fine on room air. Chest x-ray looks fine. Does not meet criteria for Remdesivir. Resume PO Decadron 6 mg daily, and monitor her sugars. 2. Falls most likely from ongoing illness. ambulatory dysfunction/ Patient can't walk. Imaging studies ok. PT and OT. 3. Mild elevation of troponin from her kidney disease, EKG okay. 4.Afib. Tachy/margaret syndrome s/p pacemaker. The patient is on rate control with Coreg. On Coumadin. INR is 1.5. We will follow the PT/INR. 4., history of coronary artery disease status post stent, on aspirin, statin, beta loren and nitrate. Currently stable. 5. History of diabetes. Continue home Lantus .Insulin sliding scale. Follow the blood sugars. 6. Hypertension. Continue hydralazine, Coreg, Lasix, Imdur. We will monitor the blood pressure. 7. Chronic kidney disease stage IV. Baseline creatinine 2.2-2.3, current creatinine of 2.5. We will follow the labs. Continue diuretics. 8. 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 H xof right sided HF.Last echo in 07/2020 EF was 55%. Continue home diuretics, Coreg, hydralazine and nitrate. Monitor for any volume overload. 9.ALISSA on cpap q hs. 10. Hypothyroidism. Continue Synthroid. 11. Hyperlipidemia. Continue statin. 12. Anxiety. Continue alprazolam p.r.n. 13. Hx of Cva on aspirin and statin. 14. hx of Carotid stenosis. s/p left CEA. On aspirin and statin. 13. Deep venous thrombosis prophylaxis, on Coumadin. We will follow the PT/INR. We will place him on SCDs while INR is subtherapeutic. DISPOSITION: Change to inpatient she will be here 2 more MNs minimum. PT and OT. Social Service to help with discharge planning. Level 1 full code ROS-No Headache, No Visual Changes, No Nausea, No Vomiting, No Fever, No Chills, No Neck Pain or Stiffness, No Chest Pain, No Palpitations, No SOB, No LANZA, + Cough, No Sputum, No Wheezing, No Abdominal Pain, No Diarrhea, No Hematemesis, No Hemoptysis, No Unexpected Weight Loss, No Flank pain, No Melena, No Hematochezia, No Frequency, No Urgency, No Burning, No Hematuria, No Rashes, No Diaphoresis. Appetite is Normal, Can't walk at all. Physical Exam Gen-AAO x 3, NAD, Afebrile Head-NCAT, EOMI, PERRLA, Anicteric Sclera, No Posterior Pharyngeal Erythema Neck-Supple, No JVD, No Thyromegaly, No Masses, No LAD, No Bruits Lungs-Clear to Auscultation Bilaterally, No Rales, No Rhonchi, No Wheezing, No Crepitus Chest-No S4, +S1, +S2, No S3, No Murmurs, No Rubs, No Gallops, No Ectopy Abdomen-Soft, Bowel Sounds Present, Non Tender, Non Distended, No Hepatomegaly, No Splenomegaly, No Palpable Masses, No Rebound, No Rigidity, No Guarding Musculoskeletal-Full Range of Motion Bilaterally, No CVAT Extremities-No Cyanosis, No Clubbing, No Edema Nuero-Cranial Nerves II-XII grossly intact, Motor WNL, DTRs WNL, Strength WNL, Non Focal Psych-Normal Mood Admission and Anticipated Discharge Date Admission Date: November 21, 2020 Results & Data Results & Data ([facility]) Vital Signs (Past 12 Hours) Vital Signs Temp Pulse Pulse Resp BP Pulse Ox 11/22/20 07:32 36.8 C 60 18 134/76 95 11/22/20 04:00 36.5 C 61 20 138/72 94 11/22/20 00:00 37.1 C 60 18 125/71 94 11/21/20 23:16 60 11/21/20 21:53 37 C 61 24 121/56 L 93 (1) Fall Encounter type: initial encounter Qualified Code(s): W19.XXXA - Unspecified fall, initial encounter
[2020-11-22 11:20] LABS: Appearance Urine Cloudy (Clear); Bacteria Urine Automated 4+ (Negative); Bilirubin Urine Negative (Negative); Blood Urine 1+ (Negative); Color Urine Yellow; Glucose Urine UA 2+ (Negative); Ketones Urine Trace (Negative); Leukocyte Esterase Urine 2+ (Negative); Nitrite Urine Positive (Negative); Protein Urine 2+ (Negative); RBC Urine Automated 0-4 /hpf (0-4); Specific Gravity Urine 1.019 (1.000-1.030); Urobilinogen Urine Negative (Negative); WBC Urine Automated >30 /hpf (0-5); pH Urine 5.5 (4.5-7.5)
[2020-11-22] MEDS: POTASSIUM CHLORIDE 20 MEQ/15 ML UDC PO SCH ×2 (14:53→20:38)
--- NOTE | 2020-11-22 15:02 | Electrocardiogram Report ---
Test Reason : Blood Pressure : / mmHG Vent. Rate : 060 BPM Atrial Rate : 063 BPM P-R Int : 000 ms QRS Dur : 140 ms QT Int : 472 ms P-R-T Axes : 000 -47 080 degrees QTc Int : 472 ms Ventricular-paced rhythm Abnormal ECG When compared with ECG of 31-DEC-2019 19:19, No significant change was found Confirmed by Joe Soliz ([id number]) on 11/22/2020 3:01:52 PM Referred By: REFERRED SELF Confirmed By:Joe Soliz
[2020-11-22] MEDS: ASPIRIN 81 MG ECTAB PO SCH (20:42)
[2020-11-22] MEDS: WARFARIN SOD 2.5 MG TAB PO SCH (20:42)
[2020-11-22] MEDS: INSULIN GLARGINE SOLOSTAR 100 UNITS/ML 3 ML PEN SQ SCH (21:42)
[2020-11-23] MEDS: LEVOTHYROXINE SODIUM 100 MCG TABLET PO SCH (05:12)
[2020-11-23 06:34] LABS: Hematocrit (blood only) 41.5 % (37-47); Hemoglobin 13.3 g/dL (12.0-16.0); Mean Corpuscular Hemoglobin 30.8 pg (25-34); Mean Corpuscular Volume 96.1 fL (80-100); Mean Platelet Volume 9.4 fL (7.4-10.4); Platelet Count 159 K/uL (130-400); RDW Coefficient of Variation 14.5 % (11.5-14.5); RDW Standard Deviation 51.6 fL (36.4-46.3); Red Blood Count 4.32 M/uL (4.2-5.4); White Blood Count 5.89 K/uL (4.8-10.8)
[2020-11-23 06:45] LABS: INR 1.7 (0.9-1.1); Prothrombin Time 17.3 Seconds (9.0-12.0)
[2020-11-23 07:08] LABS: BUN Creatinine Ratio 21.4 (10-20); Calcium 8.8 mg/dl (8.5-10.1); Creatinine Clr Calc Pharmacy 14.1 ml/min; Est GFR (African American) 19.1; Est GFR (Non-African American) 16.4; Potassium 4.4 mmol/L (3.5-5.1)
[2020-11-23] MEDS: hydrALAZINE TAB 50 MG TAB PO SCH ×2 (08:32→21:42)
[2020-11-23] MEDS: dexAMETHasone 4 MG TAB PO SCH (08:32)
[2020-11-23] MEDS: FUROSEMIDE 40 MG TAB PO SCH (08:32)
[2020-11-23] MEDS: ATORVASTATIN 20 MG TAB PO SCH (08:33)
[2020-11-23] MEDS: carvediloL 6.25 MG TAB PO SCH ×2 (08:33→21:42)
[2020-11-23] MEDS: POTASSIUM CHLORIDE 20 MEQ/15 ML UDC PO SCH ×3 (08:33→21:41)
[2020-11-23] MEDS: ISOSORBIDE MONO EXTENDED REL 30 MG TABCR PO SCH (08:33)
[2020-11-23] MEDS: INSULIN ASPART 100 UNITS/ML 3 ML PEN SC SCH ×4 (08:48→21:54)
[2020-11-23] MEDS: cefTRIAXone SODIUM 1,000 MG in DEXTROSE 5% 50 ML IV SCH (19:54)
--- NOTE | 2020-11-23 19:58 | Hospitalist Progress Note ---
Date of Service November 23, 2020 Assessment & Plan (1) Fall: (2) Left leg pain: Present on admission due to fall related to weakness from acute illness Left femur/Knee xray showed no acute fracture or dislocation within the left femur left knee. Small left knee effusion. Continue PT/OT Not safe to return home as per physical therapist. Recommended to continue PT while in the hospital; if treatment goals not met, recommend inpatient rehab Fall precaution Daughter said that pt cannot go home and ok to transition to [facility] (3) COVID-19: Testing positive in the ER Seemed to have cough and runny nose for 1 week. Saturating fine on room air. Chest x-ray no significant change compared to the prior study. Does not meet criteria for Remdesivir since pt is saturated well on RA and her GFR is less than 30 She was starting on Decadron 6 mg on admission, does not meet criteria since oxygen sat 96% Will consider to d/c steroid Clinically stable Confusion Multifactorial due to steroid vs UTI vs hospital setting vs acute illness No focal neuro deficit on exam Will consider to d/c decadron daughter said that whenever pt spent 2 days without the Xanax, she becomes confused Daughter insisted that pt to be given her Xanax If confusion worsening, will consider to get a CT head UTI Denies any urinary symptoms Urine cx positive for gram negative bacilli Will start on Rocephin IV Elevation of troponin Possible related to fall and CKD EKG showed no ischemic changes Continue aspirin, Statin and carvedilol Continue monitor in tele Afib. Tachy/margaret syndrome s/p pacemaker. rate control with Coreg Continue Coumadin, INR is 1.7. Continue monitor PT/IINR Coronary artery disease status post stent Continue aspirin, statin, beta loren and nitrate. Currently stable. Diabetes Most recent hab1c 6.8 Continue Lantus and Insulin sliding scale. Continue monitor BS Hypertension. BP stable Continue hydralazine, Coreg, Lasix, Imdur. Chronic kidney disease stage IV. Baseline creatinine 2.2-2.3, Creatinine 2.5. 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 Last echo in 07/2020 showed EF was 55%. Continue home diuretics, Coreg, hydralazine and nitrate. ALISSA Continue cpap @ hs. Hypothyroidism. Continue Synthroid. Hyperlipidemia. Continue statin. Anxiety. Continue alprazolam p.r.n. Hx of CVA Continue coumadin, aspirin and statin. hx of Carotid stenosis. s/p left CEA. Continue aspirin and statin. DVT px on Coumadin. On SCDs until INR therapeutic Admission and Anticipated Discharge Date Admission Date: November 22, 2020 Subjective Pt was seen and examined for follow of LLE pain Sitting in chair with no distress Pt said that she is having alot of pain in her LLE She said that pain is worst when she stood on her left leg or walking she said that she is not having any urinary symptoms She is saturated well on RA Daughter said that whenever pt missed her xanax she becomes confused She insisted for her mother to take the Xanax around the clock Updated provided with daughter and answered all her questions Denies any chest pain, palpitation, dizziness and SOB Physical Exam Physical Exam: General- No acute distress Head- atraumatic Eyes- PERRL, EOMI, ENT- oropharynx clear Neck- supple, no JVD Lungs- clear to auscultation Heart- regular rhythm; no murmur Abdomen- normal bowel sounds, soft, nontender Extremities- no calf tenderness, tenderness in LLE Neuro- alert, oriented x 3; PERRL, EOMI; no facial palsy; no dysarthria Skin- warm & dry Results & Data Results & Data ([facility]) Vital Signs (Past 12 Hours) Vital Signs Temp Pulse Pulse Resp BP Pulse Ox 11/23/20 17:08 60 11/23/20 14:37 36.4 C L 60 18 145/61 H 96 11/23/20 11:17 36.7 C 59 L 18 131/86 95 11/23/20 08:00 63 (1) Fall Encounter type: initial encounter Qualified Code(s): W19.XXXA - Unspecified fall, initial encounter
[2020-11-23] MEDS: ALPRAZolam 0.25 MG TABLET PO SCH (21:41)
[2020-11-23] MEDS: ASPIRIN 81 MG ECTAB PO SCH (21:42)
[2020-11-23] MEDS: WARFARIN SOD 2.5 MG TAB PO SCH (21:42)
[2020-11-23] MEDS: INSULIN GLARGINE SOLOSTAR 100 UNITS/ML 3 ML PEN SQ SCH (21:54)
[2020-11-24 06:28] LABS: INR 2.4 (0.9-1.1)
[2020-11-24] MEDS: LEVOTHYROXINE SODIUM 100 MCG TABLET PO SCH (06:30)
[2020-11-24 06:59] LABS: BUN Creatinine Ratio 25.7 (10-20); Est GFR (African American) 19.1; Est GFR (Non-African American) 16.4
[2020-11-24 07:15] LABS: Beta-Hydroxybutyrate 3.11 mg/dl (0.2-2.81)
--- NOTE | 2020-11-24 07:18 | CT Scan Report ---
HEAD CT NONCONTRAST CT DOSE: 638.56 mGycm HISTORY: Confusion TECHNIQUE: Multiaxial CT images of the head were performed without the use of intravenous contrast. A utomated exposure control was utilized for this study. A dose lowering technique was utilized adheri ng to the principles of ALARA. Comparison: Head CT 12/31/2019. Findings: The paranasal sinuses and mastoid air cells are clear. The calvarium and skull base are int act. There is no mass, hematoma, midline shift, acute infarct. White matter hypodensity is nonspecifi c but suggestive of microvascular ischemic change. The ventricles and sulci demonstrate mild age-rela selena involutional changes. Stable focus of encephalomalacia within the right frontoparietal region sug gestive of an old infarct. Old lacunar infarct within the right cerebellar hemisphere is again noted. Impression: No significant change compared to the prior study. No acute intracranial abnormality. ACT 112: Negative or not required by law. Electronically signed by: Luigi Rodrigez M.D. 11/24/2020 7:17 AM
[2020-11-24] MEDS: hydrALAZINE TAB 50 MG TAB PO SCH ×2 (08:23→19:59)
[2020-11-24] MEDS: ISOSORBIDE MONO EXTENDED REL 30 MG TABCR PO SCH (08:24)
[2020-11-24] MEDS: carvediloL 6.25 MG TAB PO SCH ×2 (08:24→19:59)
[2020-11-24] MEDS: FUROSEMIDE 40 MG TAB PO SCH (08:25)
[2020-11-24] MEDS: POTASSIUM CHLORIDE 20 MEQ/15 ML UDC PO SCH (08:25)
[2020-11-24] MEDS: ATORVASTATIN 20 MG TAB PO SCH (08:26)
[2020-11-24] MEDS: INSULIN ASPART 100 UNITS/ML 3 ML PEN SC SCH ×4 (09:04→20:48)
[2020-11-24 09:05] LABS: Potassium 5.3 mmol/L (3.5-5.1)
[2020-11-24] MEDS: ALPRAZolam 0.25 MG TABLET PO SCH ×2 (09:31→19:58)
--- NOTE | 2020-11-24 10:11 | Psychiatric Consultation ---
Date of Consultation November 24, 2020 Impression / Recommendations Impression 89-year-old female who lives alone with in-home aides during the day, has a history of multiple medical problems and has been on Xanax twice daily for at least the past 4 years, and is hospitalized after a fall with leg pain and Covid. Psychiatry was consulted at the daughter's request due to encephalopathy, with confusion and paranoia regarding the staff. Delirium likely multifactorial, due to both her chronic and acute medical conditions, age, polypharmacy, steroids. Although benzodiazepines can worsen delirium, if she has been taking Xanax twice a day for years, discontinuing it now could precipitate withdrawal, which could worsen her mental status. Would recommend continuing her home dose, and a slow taper off this medication as an outpatient, given the risks of chronic benzodiazepine use in this population. She denies symptoms consistent with a primary mood, thought, or anxiety disorder, and has no psychiatric history that I can determine. I spoke with her daughter to provide information about delirium and standard delirium treatment, including: -Frequent reorientation -Maintain regular sleep/wake cycles -Avoid deliriogenic medications -Treat underlying medical conditions Given her age and numerous comorbidities, delirium may take weeks to resolve fully. Discussed case with Dr. Grimm. Thank you for the consult, please contact us with any additional questions. Psych History Identifying Data 89y/o F with a history of anxiety on chronic daily alprazolam, as well as multiple medical problems including CAD, CHF, chronic kidney disease, hypertension, hyperlipidemia, aortic stenosis, mitral regurgitation, ALISSA, chronic A. fib, and others, who is admitted after a fall in her apartment, was febrile in the ER and COVID +. Psychiatry consulted for confusion. Chief Complaint "Well, it's a long story, I'm not getting along with the head nurse". History of Present Illness Patient presented to the ER 11/21/2020 after a fall at home the night prior and leg pain. She was using the bathroom at night, and fell off the toilet, got stuck between the wall and the toilet, and used her med alert button to summon EMS. She was able to ambulate with assistance back to her bed, and refused transport to the ER. She again called EMS the following day after she experienced pain behind her knee and was unable to walk or get out of bed. She also reported weakness, productive cough, sinus congestion, sore throat, and fever. She had x-rays of her lower extremity which showed no fractures. She was febrile and Covid positive, negative chest x-ray, started on Decadron. Troponin was elevated but EKG normal, thought to be demand ischemia due to illness. Baseline creatinine 2.2-2.3, 2.5 on admission. Yesterday, she was confused, without focal neurological deficits, and Decadron was discontinued and head CT ordered, which was showed an old lacunar infarct in the right hemisphere. Her daughter was contacted and was concerned that she was not getting her home dose of Xanax, which was ordered as needed, but the patient had not required any. Daughter noted that when she misses doses, she gets more confused, and that she typically takes it twice daily, so it was given last night and again this morning. Nursing notes indicate patient frequently rings her sanchez, has not been sleeping, was increasingly confused and paranoid yesterday. Her daughter had called and spoken to nursing staff wanting information, but as the patient had not yet given permission, no information was initially shared. Patient did tell staff they could speak to both of her children and provide treatment information. The patient told nursing staff that her daughter had been calling and nurses were hanging up on her, which they denied doing. When they contacted the patient's daughter, she said the patient told her that she rings her call sanchez's for an hour and no one helps her, and that someone came into her room and told her the staff here does not like her, then said somebody called her on the phone and told her that. Case management is involved and clarified that the patient lives alone but has caregivers from 9 AM to 6 PM daily. Patient contacted by phone due to COVID, infection precautions. She denies any mental health history, but when asked if she is on Xanax, says she thinks she is, but doesn't know the names of her medications or what they are for. She denies feeling more anxious or worried lately, other than when she fell at home and was in pain. She denies symptoms of panic, depression, delmer and psychosis. She denies thoughts of harming herself or others. She is able to explain to why she came to the hospital, and that she is being treated for COVID as well. Several times she references that she is not getting along well with certain hospital staff, but cannot give further information, and will only say that it is "a long story." Spoke with Dr. Grimm who reports the patient's daughter requested a psychiatry consult for confusion, as she talked to her over the phone and was concerned that she was confused. Spoke with the patient's daughter who expressed concerns that they can't see her and "lots of things are happening," and they are concerned about her, "the way she's talking, she's not our mother." She says her mother is telling them the nurses are "being mean to her, calling her a liar, they're outside the door laughing at her, the police are outside the door, all kinds of crazy stuff." She was able to relay that she is confused and they've been told that this is not unusual and there are multiple potential reasons. Provided education about delirium, and answered her questions about what medications she is getting and asking for us to sedate her so she doesn't have a heart attack. Past Psychiatric History Previous Psych History: unknown, possibly anxiety - on chronic Xanax. Per review of the PDMP, she has been filling Xanax monthly since 2016. Outpatient Services: None, PCP prescribes Xanax Past Medication Trials: unknown, patient unable to state if she has been on other psychotropic medications Allergies Allergy/AdvReac Type Severity Reaction Status Date / Time codeine Allergy Intermediate Unknown Verified 11/21/20 20:59 adhesive Allergy Unknown red;itchy Verified 11/21/20 20:59 skin Home Medications Medication Instructions Recorded Confirmed Type alprazolam [Xanax] 0.25 mg PO BID PRN 09/10/18 11/21/20 History atorvastatin [Lipitor] 20 mg PO QAM 09/10/18 11/21/20 History carvedilol [Coreg] 6.25 mg PO BID 09/10/18 11/21/20 History furosemide [Lasix] 40 mg PO QAM 09/10/18 11/21/20 History insulin glargine [Lantus U-100 0 unit SUBCUT HS 09/10/18 11/21/20 History Insulin] potassium chloride 10 mg PO BID 09/10/18 11/21/20 History warfarin [Jantoven] 2.5 mg PO .QHS UD 09/10/18 11/21/20 History aspirin 81 mg PO HS 09/08/19 11/21/20 History hydralazine 50 mg PO BID 09/08/19 11/21/20 History levothyroxine [Synthroid] 100 mcg PO QAM 09/08/19 11/21/20 History loperamide [Imodium A-D] 2 mg PO Q3H PRN 10/05/19 11/21/20 History isosorbide mononitrate 30 mg PO DAILY 12/31/19 11/21/20 History insulin aspart U-100 [Novolog 1 sliding scale dose SUBCUT 11/21/20 11/21/20 History U-100 Insulin aspart] USEASDIRECTD Substance Abuse History Denies Personal History Living Arrangements: Apartment Living Arrangements Comments: Alone but with caregivers during the day Employment Status: Retired Marital Status: Beliefs That Will Affect Care: None Patient History Medical History Acquired claw toe of left foot Acquired claw toe of right foot Acquired hallux valgus of right foot Acquired hammer toe of right foot Anticoagulated on warfarin Atrial fibrillation Cerebrovascular disease CHF (congestive heart failure) "left ventricular systolic failure, LVEF 35% with subsequent normalization of EF" On 10/15/14 15:09 Bob Villa wrote "left ventricular systolic failure, LVEF 35%" Chronic kidney disease (CKD), stage IV (severe) Closed fracture of left hip requiring operative repair Coronary artery disease "2006 - MARITZA to LAD x 2" 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, type II Diabetic neuropathy Dyslipidemia Hallux valgus (acquired), left foot Hammertoe of left foot Hypertension Hypothyroidism Lichen sclerosus et atrophicus MRSA nasal colonization Osteoporosis Right-sided congestive heart failure Sleep apnea "intolerant of CPAP" Stroke Tachy-margaret syndrome Vitamin D deficiency Surgical History H/O hemorrhoidectomy History of colon surgery History of hip surgery History of tubal ligation Pacemaker Status post carotid endarterectomy "left" Status post cholecystectomy Status post hysterectomy Family History Father Hypertension Mother Hypertension Other Diabetes Heart disease Social History Smoking Status: Former smoker Tobacco Type: Cigarettes Second Hand Exposure: No; Do You Dip or Chew Tobacco: No; Hx Alcohol Use: No Hx Substance Use: No Preferred Language: French Communication Ability: Effective Visual Impairment: Limited Hearing Ability: Normal Tennis [employer] Manager Required: No Beliefs That Will Affect Care: None marital status: / Current Living Situation: Alone Current Living Situation Comment: [facility], FAMILY LIVES CLOSE ([place]) current occupational status: retired Other Information That Helps Us Care for You: No Feels Safe at Home: Yes Safety Concerns: Feels Safe At This Time during the past year weight has: remained stable Assistive Devices: None Physical Exam Vital Signs (Past 24 Hours): Last Vital Signs Temp 36.6 C 11/24/20 07:58 Pulse 58 L 11/24/20 07:58 Resp 18 11/24/20 07:58 BP 183/79 H 11/24/20 07:58 Pulse Ox 96 11/24/20 07:58 Exam Statement: MSE limited by infection control precautions; patient evaluated over the phone. She was initially cooperative, but confused. Speech was normal rate, volume, and tone. Thoughts mostly goal-directed, although sometimes responded with unrelated information. She is alert and oriented to self and place, able to state why she is in the hospital, but cannot list her medications or tell me what they are for. Unable to rationally manipulate information about her treatment, focused on paranoia about staff not liking her. No SI, HI, delusions, or hallucinations endorsed. She requested to end the call, stating she had other things she needed to do. Review of Systems Other (Patient became uncooperative, ended the assessment) Results & Data (PSY) Medications Administered Alprazolam (Alprazolam 0.25 Mg Tablet) 0.25 mg PO BID HALINA Stop: 12/23/20 21:29 Last Admin: 11/24/20 09:31 Dose: 0.25 mg Documented by: [id number] Admin: 11/23/20 21:41 Dose: 0.25 mg Documented by: [id number] Aspirin (Aspirin 81 Mg Ectab) 81 mg PO HS HALINA Stop: 12/22/20 20:59 Last Admin: 11/23/20 21:42 Dose: 81 mg Documented by: [id number] Admin: 11/22/20 20:42 Dose: 81 mg Documented by: [id number] Atorvastatin Calcium (Atorvastatin 20 Mg Tab) 20 mg PO QAM HALINA Stop: 12/22/20 08:59 Last Admin: 11/24/20 08:26 Dose: 20 mg Documented by: [id number] Admin: 11/23/20 08:33 Dose: 20 mg Documented by: [id number] Admin: 11/22/20 08:10 Dose: 20 mg Documented by: [id number] Carvedilol (Carvedilol 6.25 Mg Tab) 6.25 mg PO BID HALINA Stop: 12/21/20 21:51 Last Admin: 11/24/20 08:24 Dose: 6.25 mg Documented by: [id number] Admin: 11/23/20 21:42 Dose: 6.25 mg Documented by: [id number] Admin: 11/23/20 08:33 Dose: 6.25 mg Documented by: [id number] Admin: 11/22/20 20:42 Dose: 6.25 mg Documented by: [id number] Admin: 11/22/20 08:10 Dose: 6.25 mg Documented by: [id number] Admin: 11/21/20 23:04 Dose: 6.25 mg Documented by: [id number] Furosemide (Furosemide 40 Mg Tab) 40 mg PO QAM HALINA Stop: 12/22/20 08:59 Last Admin: 11/24/20 08:25 Dose: 40 mg Documented by: [id number] Admin: 11/23/20 08:32 Dose: 40 mg Documented by: [id number] Admin: 11/22/20 08:11 Dose: 40 mg Documented by: [id number] Hydralazine HCl (Hydralazine Tab 50 Mg Tab) 50 mg PO BID HALINA Stop: 12/21/20 21:51 Last Admin: 11/24/20 08:23 Dose: 50 mg Documented by: [id number] Admin: 11/23/20 21:42 Dose: 50 mg Documented by: [id number] Admin: 11/23/20 08:32 Dose: 50 mg Documented by: [id number] Admin: 11/22/20 20:42 Dose: 50 mg Documented by: [id number] Admin: 11/22/20 08:10 Dose: 50 mg Documented by: [id number] Admin: 11/21/20 23:04 Dose: 50 mg Documented by: [id number] Ceftriaxone Sodium 1,000 mg/ (Dextrose) 50 mls @ 100 mls/hr IV Q24H [facility]; Protocol Stop: 11/28/20 18:59 Last Infusion: 11/23/20 21:17 Dose: 0 mls/hr Documented by: [id number] Admin: 11/23/20 19:54 Dose: 100 mls/hr Documented by: [id number] Insulin Aspart (Insulin Aspart 100 Units/Ml 3 Ml Pen) 0 units SC ACHS [facility] Stop: 12/21/20 22:29 Last Admin: 11/24/20 09:04 Dose: 14 units Documented by: [id number] Cosigned by: [id number] Admin: 11/23/20 21:54 Dose: 5 units Documented by: [id number] Cosigned by: [id number] Admin: 11/23/20 17:53 Dose: 11 units Documented by: [id number] Cosigned by: [id number] Admin: 11/23/20 12:14 Dose: 14 units Documented by: [id number] Cosigned by: [id number] Admin: 11/23/20 08:48 Dose: 4 units Documented by: [id number] Cosigned by: [id number] Admin: 11/22/20 21:42 Dose: 3 units Documented by: [id number] Cosigned by: [id number] Admin: 11/22/20 16:54 Dose: 6 units Documented by: [id number] Cosigned by: [id number] Admin: 11/22/20 12:31 Dose: 6 units Documented by: [id number] Cosigned by: [id number] Admin: 11/22/20 08:57 Dose: 4 units Documented by: [id number] Cosigned by: [id number] Admin: 11/21/20 22:58 Dose: 3 units Documented by: [id number] Cosigned by: [id number] Insulin Glargine (Insulin Glargine Solostar 100 Units/Ml 3 Ml Pen) 20 units SQ HS [facility] Stop: 12/21/20 22:29 Last Admin: 11/23/20 21:54 Dose: 20 units Documented by: [id number] Cosigned by: [id number] Admin: 11/22/20 21:42 Dose: 20 units Documented by: [id number] Cosigned by: [id number] Admin: 11/21/20 22:57 Dose: 20 units Documented by: [id number] Cosigned by: [id number] Isosorbide Mononitrate (Isosorbide [place] Extended Rel 30 Mg Tabcr) 30 mg PO DAILY [facility] Stop: 12/22/20 08:59 Last Admin: 11/24/20 08:24 Dose: 30 mg Documented by: [id number] Admin: 11/23/20 08:33 Dose: 30 mg Documented by: [id number] Admin: 11/22/20 08:10 Dose: 30 mg Documented by: [id number] Levothyroxine Sodium (Levothyroxine Sodium 100 Mcg Tablet) 100 mcg PO DAILYBB [facility] Stop: 12/22/20 06:29 Last Admin: 11/24/20 06:30 Dose: 100 mcg Documented by: [id number] Admin: 11/23/20 05:12 Dose: 100 mcg Documented by: [id number] Admin: 11/22/20 05:44 Dose: 100 mcg Documented by: [id number] Potassium Chloride (Potassium Chloride 20 Meq/15 Ml Udc) 20 meq PO TID [facility] Stop: 12/22/20 13:59 Last Admin: 11/24/20 08:25 Dose: 20 meq Documented by: [id number] Admin: 11/23/20 21:41 Dose: 20 meq Documented by: [id number] Admin: 11/23/20 13:10 Dose: 20 meq Documented by: [id number] Admin: 11/23/20 08:33 Dose: 20 meq Documented by: [id number] Admin: 11/22/20 20:38 Dose: 20 meq Documented by: [id number] Admin: 11/22/20 14:53 Dose: 20 meq Documented by: [id number] Warfarin Sodium (Warfarin Sod 2.5 Mg Tab) 2.5 mg PO [id number] [facility] Stop: 12/22/20 20:59 Last Admin: 11/23/20 21:42 Dose: 2.5 mg Documented by: [id number] Admin: 11/22/20 20:42 Dose: 2.5 mg Documented by: [id number] Coding Level of Care Code 76843 U Intl Hosp Care Lvl 3
--- NOTE | 2020-11-24 17:30 | Hospitalist Progress Note ---
Date of Service November 24, 2020 Assessment & Plan (1) Fall: (2) Left leg pain: Present on admission due to fall related to weakness from acute illness Left femur/Knee xray showed no acute fracture or dislocation within the left femur left knee. Small left knee effusion. Continue PT/OT Not safe to return home as per physical therapist. Recommended to continue PT while in the hospital; if treatment goals not met, recommend inpatient rehab Fall precaution Daughter said that pt cannot go home and agreed to refer to [facility] for rehab (3) COVID-19: Testing positive in the ER Seemed to have cough and runny nose for 1 week. Saturating fine on room air. Chest x-ray no significant change compared to the prior study. Does not meet criteria for Remdesivir since pt is saturated well on RA and her GFR is less than 30 She was starting on Decadron 6 mg on admission, does not meet criteria since oxygen sat 96% Decadron discontinued due to confusion and also pt was saturated well on RA Will add guaifenesin BID Clinically stable Confusion Delirium Multifactorial due to steroid vs UTI vs hospital setting vs acute illness No focal neuro deficit on exam CT head negative for any intracranial abnromality Steroid discontinued daughter said that whenever pt spent 2 days without the Xanax, she becomes confused Daughter insisted that pt to be given her Xanax UTI Denies any urinary symptoms Urine cx positive for gram negative bacilli- Ecoli Continue Rocephin IV Will transition to Keflex on discharge Elevation of troponin Possible related to fall and CKD EKG showed no ischemic changes Cardiology consult as per family request Continue aspirin, Statin and carvedilol Continue monitor in tele Afib. Tachy/margaret syndrome s/p pacemaker. rate control with Coreg Continue Coumadin, INR 2.4 Continue monitor PT/IINR Coronary artery disease status post stent Continue aspirin, statin, beta loren and nitrate. Currently stable. Diabetes Most recent hab1c 6.8 Continue Lantus and Insulin sliding scale. Continue monitor BS Hypertension. BP stable Continue hydralazine, Coreg, Lasix, Imdur. Chronic kidney disease stage IV. Baseline creatinine 2.2-2.3, Creatinine 2.5. Continue monitor BMP while on Lasix Spoke to her Nephrology Dr. 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 Last echo in 07/2020 showed EF was 55%. Continue home diuretics, Coreg, hydralazine and nitrate. ALISSA Continue cpap @ hs. Hypothyroidism. Continue Synthroid. Hyperlipidemia. Continue statin. Anxiety. Continue alprazolam p.r.n. Hx of CVA Continue coumadin, aspirin and statin. hx of Carotid stenosis. s/p left CEA. Continue aspirin and statin. DVT px on Coumadin with INR 2.4 Disposition Waiting for placement Admission and Anticipated Discharge Date Admission Date: November 22, 2020 Subjective Pt was seen and examined for follow confusion and LLE pain Lying in bed with no distress Pt said that her leg pain is better She said that now she is able to move her left leg She said that she participate with therapy Spoke to patient access services representative Victoriano because daughters had some concerns about the nursing staff Spoke to daughter Cindy and provided with updates Denies any chest pain, palpitation, dizziness and SOB Physical Exam Physical Exam: General- No acute distress Head- atraumatic Eyes- PERRL, EOMI, ENT- oropharynx clear Neck- supple, no JVD Lungs- clear to auscultation Heart- regular rhythm; no murmur Abdomen- normal bowel sounds, soft, nontender Extremities- no calf tenderness, tenderness in LLE Neuro- alert, oriented x 3; PERRL, EOMI; no facial palsy; no dysarthria Skin- warm & dry Results & Data Results & Data ([facility]) Vital Signs (Past 12 Hours) Vital Signs Temp Pulse Resp BP Pulse Ox 11/24/20 15:02 94 11/24/20 07:58 36.6 C 58 L 18 183/79 H 96 (1) Fall Encounter type: initial encounter Qualified Code(s): W19.XXXA - Unspecified fall, initial encounter
[2020-11-24] MEDS: cefTRIAXone SODIUM 1,000 MG in DEXTROSE 5% 50 ML IV SCH (17:51)
[2020-11-24] MEDS: dexAMETHasone 4 MG TAB PO SCH (19:18)
[2020-11-24] MEDS: guaiFENesin 600 MG TABCR PO SCH (19:58)
[2020-11-24] MEDS: ASPIRIN 81 MG ECTAB PO SCH (19:59)
[2020-11-24] MEDS: WARFARIN SOD 2.5 MG TAB PO SCH (19:59)
[2020-11-24] MEDS: INSULIN GLARGINE SOLOSTAR 100 UNITS/ML 3 ML PEN SQ SCH (20:48)
[2020-11-25] MEDS: LEVOTHYROXINE SODIUM 100 MCG TABLET PO SCH (06:04)
[2020-11-25 07:08] LABS: INR 2.5 (0.9-1.1); Prothrombin Time 25.4 Seconds (9.0-12.0)
[2020-11-25 07:36] LABS: BUN Creatinine Ratio 26.2 (10-20); Beta-Hydroxybutyrate 1.01 mg/dl (0.2-2.81); Calcium 8.4 mg/dl (8.5-10.1); Creatinine Clr Calc Pharmacy 14.3 ml/min; Est GFR (African American) 19.5; Est GFR (Non-African American) 16.8; Potassium 3.9 mmol/L (3.5-5.1)
[2020-11-25] MEDS: ALPRAZolam 0.25 MG TABLET PO SCH ×2 (08:39→20:47)
[2020-11-25] MEDS: ATORVASTATIN 20 MG TAB PO SCH (08:39)
[2020-11-25] MEDS: FUROSEMIDE 40 MG TAB PO SCH (08:39)
[2020-11-25] MEDS: carvediloL 6.25 MG TAB PO SCH ×2 (08:39→20:48)
[2020-11-25] MEDS: ISOSORBIDE MONO EXTENDED REL 30 MG TABCR PO SCH (08:39)
[2020-11-25] MEDS: hydrALAZINE TAB 50 MG TAB PO SCH ×2 (08:39→20:48)
[2020-11-25] MEDS: guaiFENesin 600 MG TABCR PO SCH ×2 (08:40→20:49)
[2020-11-25] MEDS: INSULIN ASPART 100 UNITS/ML 3 ML PEN SC SCH ×4 (09:35→21:21)
--- NOTE | 2020-11-25 16:10 | Communication Note ---
Date of Service: November 25, 2020 Pt's daughter called our outpatient clinic requesting cardiac eval after being admitted for Covid 19 and delirium. No cardiac complaints. I attempted to contact the patient via phone due to Covid precautions, no answer. It does not appear that cardiac input is necessary at this time. Please call with questions or concerns.
--- NOTE | 2020-11-25 18:56 | Hospitalist Progress Note ---
Date of Service November 25, 2020 Assessment & Plan (1) Fall: (2) Left leg pain: Present on admission due to fall related to weakness from acute illness Left femur/Knee xray showed no acute fracture or dislocation within the left femur left knee. Small left knee effusion. Continue PT/OT Not safe to return home as per physical therapist. Recommended to continue PT while in the hospital; if treatment goals not met, recommend inpatient rehab Fall precaution Daughter said that pt cannot go home and agreed to refer to [facility] for rehab (3) COVID-19: Testing positive in the ER Seemed to have cough and runny nose for 1 week. Saturating fine on room air. Chest x-ray no significant change compared to the prior study. Does not meet criteria for Remdesivir since pt is saturated well on RA and her GFR is less than 30 She was starting on Decadron 6 mg on admission, does not meet criteria since oxygen sat 96% Decadron discontinued due to confusion and also pt was saturated well on RA Continue guaifenesin BID Clinically stable Confusion Delirium Multifactorial due to steroid vs UTI vs hospital setting vs acute illness No focal neuro deficit on exam CT head negative for any intracranial abnromality Steroid discontinued daughter said that whenever pt spent 2 days without the Xanax, she becomes confused Daughter insisted that pt to be given her Xanax resolved UTI Denies any urinary symptoms Urine cx positive for gram negative bacilli- Ecoli Continue Rocephin IV Will transition to Keflex on discharge Elevation of troponin Possible related to fall and CKD EKG showed no ischemic changes Cardiology consult as per family request Continue aspirin, Statin and carvedilol cardiology was consulted Continue monitor in tele Afib. Tachy/margaret syndrome s/p pacemaker. rate control with Coreg Continue Coumadin, INR 2.4 Continue monitor PT/IINR Coronary artery disease status post stent Continue aspirin, statin, beta loren and nitrate. Currently stable. Diabetes Most recent hab1c 6.8 Continue Lantus and Insulin sliding scale. Continue monitor BS Hypertension. BP stable Continue hydralazine, Coreg, Lasix, Imdur. Chronic kidney disease stage IV. Baseline creatinine 2.2-2.3, Creatinine 2.5. Continue monitor BMP while on Lasix Spoke to her Nephrology Dr. 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 Last echo in 07/2020 showed EF was 55%. Continue home diuretics, Coreg, hydralazine and nitrate. ALISSA Continue cpap @ hs. Hypothyroidism. Continue Synthroid. Hyperlipidemia. Continue statin. Anxiety. Continue alprazolam p.r.n. Hx of CVA Continue coumadin, aspirin and statin. hx of Carotid stenosis. s/p left CEA. Continue aspirin and statin. DVT px on Coumadin with INR 2.5 Disposition Waiting for placement Admission and Anticipated Discharge Date Admission Date: November 22, 2020 Subjective Pt was seen and examined for follow of COVID 19 Sitting in chair with no distress Pt said that she feels much better She said that she is able to move her leg with no discomfort Denies any chest pain, palpitation, dizziness and SOB Physical Exam Physical Exam: General- No acute distress Head- atraumatic Eyes- PERRL, EOMI, ENT- oropharynx clear Neck- supple, no JVD Lungs- clear to auscultation Heart- regular rhythm; no murmur Abdomen- normal bowel sounds, soft, nontender Extremities- no calf tenderness, tenderness in LLE Neuro- alert, oriented x 3; PERRL, EOMI; no facial palsy; no dysarthria Skin- warm & dry Results & Data Results & Data ([facility]) Vital Signs (Past 12 Hours) Vital Signs Temp Pulse Pulse Resp BP Pulse Ox 11/25/20 16:11 36.8 C 60 18 131/69 90 11/25/20 11:21 36.3 C L 61 18 120/61 95 11/25/20 08:10 36.8 C 57 L 16 157/73 H 93 11/25/20 07:34 60 (1) Fall Encounter type: initial encounter Qualified Code(s): W19.XXXA - Unspecified f all, initial encounter
[2020-11-25] MEDS: cefTRIAXone SODIUM 1,000 MG in DEXTROSE 5% 50 ML IV SCH (20:42)
[2020-11-25] MEDS: ASPIRIN 81 MG ECTAB PO SCH (20:50)
[2020-11-25] MEDS ORDERED: WARFARIN SOD 5 MG TAB PO SCH (21:00)
[2020-11-25] MEDS: INSULIN GLARGINE SOLOSTAR 100 UNITS/ML 3 ML PEN SQ SCH (21:21)
[2020-11-26] MEDS: LEVOTHYROXINE SODIUM 100 MCG TABLET PO SCH (06:28)
[2020-11-26 07:19] LABS: INR 2.6 (0.9-1.1); Prothrombin Time 25.9 Seconds (9.0-12.0)
[2020-11-26 07:39] LABS: BUN Creatinine Ratio 23.9 (10-20); Calcium 8.4 mg/dl (8.5-10.1); Est GFR (African American) 18.7; Est GFR (Non-African American) 16.1; Potassium 3.5 mmol/L (3.5-5.1)
[2020-11-26] MEDS: FUROSEMIDE 40 MG TAB PO SCH (08:13)
[2020-11-26] MEDS: ISOSORBIDE MONO EXTENDED REL 30 MG TABCR PO SCH (08:13)
[2020-11-26] MEDS: ALPRAZolam 0.25 MG TABLET PO SCH ×2 (08:13→20:35)
[2020-11-26] MEDS: ATORVASTATIN 20 MG TAB PO SCH (08:14)
[2020-11-26] MEDS: hydrALAZINE TAB 50 MG TAB PO SCH ×2 (08:14→20:33)
[2020-11-26] MEDS: carvediloL 6.25 MG TAB PO SCH ×2 (08:14→20:33)
[2020-11-26] MEDS: guaiFENesin 600 MG TABCR PO SCH ×2 (08:14→20:35)
[2020-11-26] MEDS: INSULIN ASPART 100 UNITS/ML 3 ML PEN SC SCH ×4 (08:15→20:53)
[2020-11-26] MEDS: cefTRIAXone SODIUM 1,000 MG in DEXTROSE 5% 50 ML IV SCH (18:29)
--- NOTE | 2020-11-26 18:35 | Hospitalist Progress Note ---
Date of Service November 26, 2020 Assessment & Plan (1) Fall: (2) Left leg pain: Present on admission due to fall related to weakness from acute illness Left femur/Knee xray showed no acute fracture or dislocation within the left femur left knee. Small left knee effusion. Continue PT/OT Not safe to return home as per physical therapist. Recommended to continue PT while in the hospital; if treatment goals not met, recommend inpatient rehab Fall precaution Daughter said that pt cannot go home and agreed to refer to [facility] for rehab (3) COVID-19: Testing positive in the ER Seemed to have cough and runny nose for 1 week. Saturating fine on room air. Chest x-ray no significant change compared to the prior study. Does not meet criteria for Remdesivir since pt is saturated well on RA and her GFR is less than 30 She was starting on Decadron 6 mg on admission, does not meet criteria since oxygen sat 96% Decadron discontinued due to confusion and also pt was saturated well on RA Continue guaifenesin BID Will add flutter valve Will repeat CXR since pt was place on oxygen Clinically stable Confusion Delirium Multifactorial due to steroid vs UTI vs hospital setting vs acute illness No focal neuro deficit on exam CT head negative for any intracranial abnromality Steroid discontinued daughter said that whenever pt spent 2 days without the Xanax, she becomes confused Daughter insisted that pt to be given her Xanax resolved UTI Denies any urinary symptoms Urine cx positive for gram negative bacilli- Ecoli Continue Rocephin IV Will transition to Keflex on discharge Elevation of troponin Possible related to fall and CKD EKG showed no ischemic changes Cardiology consult as per family request Continue aspirin, Statin and carvedilol cardiology was consulted Continue monitor in tele Afib. Tachy/margaret syndrome s/p pacemaker. rate control with Coreg Continue Coumadin, INR 2.6 Continue monitor PT/IINR Coronary artery disease status post stent Continue aspirin, statin, beta loren and nitrate. Currently stable. Diabetes Most recent hab1c 6.8 Continue Lantus and Insulin sliding scale. Continue monitor BS Hypertension. BP stable Continue hydralazine, Coreg, Lasix, Imdur. Chronic kidney disease stage IV. Baseline creatinine 2.2-2.3, Creatinine 2.5. Continue monitor BMP while on Lasix Spoke to her Nephrology Dr. 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 Last echo in 07/2020 showed EF was 55%. Continue home diuretics, Coreg, hydralazine and nitrate. ALISSA Continue cpap @ hs. Hypothyroidism. Continue Synthroid. Hyperlipidemia. Continue statin. Anxiety. Continue alprazolam p.r.n. Hx of CVA Continue coumadin, aspirin and statin. hx of Carotid stenosis. s/p left CEA. Continue aspirin and statin. DVT px on Coumadin with INR 2.5 Disposition Waiting for placement Admission and Anticipated Discharge Date Admission Date: November 22, 2020 Subjective Pt was seen and examined for follow of COVID 19 Sitting in chair with no distress Pt said that she has been coughing a lot She said that she started to spit the phlegm out She said that her pain in her left LE is much better Denies any chest pain, palpitation, dizziness, SOB and fever Physical Exam Physical Exam: General- No acute distress Head- atraumatic Eyes- PERRL, EOMI, ENT- oropharynx clear Neck- supple, no JVD Lungs- clear to auscultation Heart- regular rhythm; no murmur Abdomen- normal bowel sounds, soft, nontender Extremities- no calf tenderness, tenderness in LLE Neuro- alert, oriented x 3; PERRL, EOMI; no facial palsy; no dysarthria Skin- warm & dry Results & Data Results & [facility] ([facility]) Vital Signs (Past 12 Hours) Vital Signs Temp Pulse Pulse Resp BP BP Pulse Ox 11/26/20 16:29 60 11/26/20 15:14 36.8 C 61 18 146/59 H 11/26/20 11:39 36.5 C 62 18 132/76 90 11/26/20 07:07 36.8 C 60 16 142/66 H 92 (1) Fall Encounter type: initial encounter Qualified Code(s): W19.XXXA - Unspecified fall, initial encounter
[2020-11-26] MEDS ORDERED: IPRATROPIUM BROMIDE/ALBUTEROL respimat INH INH PRN (18:37)
[2020-11-26] MEDS: IPRATROPIUM BROMIDE HFA INHALER INH SCH (19:48)
[2020-11-26] MEDS: ALBUTEROL HFA 8 GM INHALER INH SCH (19:48)
--- NOTE | 2020-11-26 20:06 | XRay Report ---
XR chest 1V portable CLINICAL HISTORY: hypoxia COMPARISON STUDY: Chest radiograph November 21, 2020. FINDINGS: Dual lead left pacemaker is in place. Extensive left basilar airspace opacity has progresse d. There is probable left lung volume loss. However, patient is rotated. Small left pleural effusion is noted. There is a trace right pleural effusion. There is pulmonary vascular congestion without ove rt pulmonary edema. No pneumothorax is present. Incidental note is made of an old, healed proximal ri ght humeral fracture IMPRESSION: 1. Increase in extensive left basilar opacity which could reflect pneumonia or atelectasis. Probable left lower lobe volume loss. 2. Small left and trace right pleural effusions. 3. Pulmonary vascular congestion with suspected mild pulmonary edema. ACT 112: Negative or not required by law. Electronically signed by: Arnoldo Qureshi M.D. 11/26/2020 8:04 PM
[2020-11-26] MEDS: WARFARIN SOD 2.5 MG TAB PO SCH (20:34)
[2020-11-26] MEDS: ASPIRIN 81 MG ECTAB PO SCH (20:34)
[2020-11-26] MEDS: INSULIN GLARGINE SOLOSTAR 100 UNITS/ML 3 ML PEN SQ SCH (20:52)
[2020-11-26] MEDS: DOXYCYCLINE HYCLATE 100 MG CAP PO SCH (23:58)
[2020-11-27] MEDS: LEVOTHYROXINE SODIUM 100 MCG TABLET PO SCH (06:42)
[2020-11-27] MEDS: ALBUTEROL HFA 8 GM INHALER INH SCH ×4 (07:27→19:26)
[2020-11-27] MEDS: IPRATROPIUM BROMIDE HFA INHALER INH SCH ×4 (07:27→19:25)
[2020-11-27] MEDS: hydrALAZINE TAB 50 MG TAB PO SCH ×2 (08:28→20:04)
[2020-11-27] MEDS: ALPRAZolam 0.25 MG TABLET PO SCH ×2 (08:28→20:05)
[2020-11-27] MEDS: guaiFENesin 600 MG TABCR PO SCH ×2 (08:28→20:06)
[2020-11-27] MEDS: carvediloL 6.25 MG TAB PO SCH ×2 (08:28→20:04)
[2020-11-27] MEDS: ISOSORBIDE MONO EXTENDED REL 30 MG TABCR PO SCH (08:28)
[2020-11-27] MEDS: ATORVASTATIN 20 MG TAB PO SCH (08:28)
[2020-11-27] MEDS: FUROSEMIDE 40 MG TAB PO SCH (08:28)
[2020-11-27] MEDS: DOXYCYCLINE HYCLATE 100 MG CAP PO SCH ×2 (08:28→20:06)
[2020-11-27 09:26] LABS: Hematocrit (blood only) 40.3 % (37-47); Hemoglobin 13.1 g/dL (12.0-16.0); Mean Corpuscular Hemoglobin 30.8 pg (25-34); Mean Corpuscular Hgb Conc 32.5 g/dL (32-36); Mean Corpuscular Volume 94.8 fL (80-100); Mean Platelet Volume 9.2 fL (7.4-10.4); Platelet Count 249 K/uL (130-400); RDW Coefficient of Variation 14.7 % (11.5-14.5); RDW Standard Deviation 50.9 fL (36.4-46.3); Red Blood Count 4.25 M/uL (4.2-5.4); White Blood Count 9.98 K/uL (4.8-10.8)
[2020-11-27] MEDS: INSULIN ASPART 100 UNITS/ML 3 ML PEN SC SCH ×4 (09:28→20:03)
[2020-11-27 09:43] LABS: INR 3.6 (0.9-1.1); Prothrombin Time 35.7 Seconds (9.0-12.0)
[2020-11-27 10:03] LABS: BUN Creatinine Ratio 20.4 (10-20); Calcium 8.7 mg/dl (8.5-10.1); Creatinine Clr Calc Pharmacy 14.6 ml/min; Est GFR (African American) 20.3; Est GFR (Non-African American) 17.5; Potassium 3.3 mmol/L (3.5-5.1)
[2020-11-27] MEDS ORDERED: POTASSIUM CHLORIDE 10 MEQ TABCR PO ONE (11:00)
[2020-11-27] MEDS ORDERED: FUROSEMIDE 20 MG in SYRINGE 0 ML IV ONE (11:00)
--- NOTE | 2020-11-27 14:49 | Hospitalist Progress Note ---
Date of Service November 27, 2020 Assessment & Plan (1) Fall: (2) Left leg pain: Present on admission due to fall related to weakness from acute illness Left femur/Knee xray showed no acute fracture or dislocation within the left femur left knee. Small left knee effusion. Continue PT/OT Not safe to return home as per physical therapist. Recommended to continue PT while in the hospital; if treatment goals not met, recommend inpatient rehab Fall precaution Daughter said that pt cannot go home and agreed to refer to [facility] for rehab (3) COVID-19: Testing positive in the ER Seemed to have cough and runny nose for 1 week. Saturating fine on room air. Chest x-ray no significant change compared to the prior study. Does not meet criteria for Remdesivir since pt is saturated well on RA and her GFR is less than 30 She was starting on Decadron 6 mg on admission, does not meet criteria since oxygen sat 96% Decadron discontinued due to confusion and also pt was saturated well on RA Continue guaifenesin BID Continue flutter valve Repeat CXR showed increase in extensive left basilar opacity which could reflect pneumonia or atelectasis. Pulmonary vascular congestion with suspected mild pulmonary edema. ProBNP elevated Spoke to nephrology and ok to give additional Lasix 20mg IV x1 Will reassess later and might consider to give an additional 20mg Continue oxygen supplement for now Confusion Delirium Multifactorial due to steroid vs UTI vs hospital setting vs acute illness No focal neuro deficit on exam CT head negative for any intracranial abnromality Steroid discontinued daughter said that whenever pt spent 2 days without the Xanax, she becomes confused Daughter insisted that pt to be given her Xanax resolved UTI Denies any urinary symptoms Urine cx positive for gram negative bacilli- Ecoli Continue Rocephin IV, will complete course of abx tomorrow Elevation of troponin Possible related to fall and CKD EKG showed no ischemic changes Cardiology consult as per family request Continue aspirin, Statin and carvedilol cardiology was consulted and recommended to continue current management Continue monitor in tele Afib. Tachy/margaret syndrome s/p pacemaker. rate control with Coreg Continue Coumadin, INR 3.6 Continue monitor PT/IINR Coronary artery disease status post stent Continue aspirin, statin, beta loren and nitrate. Currently stable. Diabetes Most recent hab1c 6.8 Continue Lantus and Insulin sliding scale. Continue monitor BS Hypertension. BP stable Continue hydralazine, Coreg, Lasix, Imdur. Chronic kidney disease stage IV. 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 Last echo in 07/2020 showed EF was 55%. CXR on 11/26 showed pulmonary vascular congestion with suspected mild pulmonary edema. ProBNP elevated Continue home diuretics, Coreg, hydralazine and nitrate. Lasix 20mg IV x1 given today ALISSA Continue cpap @ hs. Hypothyroidism. Continue Synthroid. Hyperlipidemia. Continue statin. Anxiety. Continue alprazolam p.r.n. Hx of CVA Continue coumadin, aspirin and statin. hx of Carotid stenosis. s/p left CEA. Continue aspirin and statin. DVT px on Coumadin with INR 3.6 Disposition Will discharge once medically stable Admission and Anticipated Discharge Date Admission Date: November 22, 2020 Subjective Pt was seen and examined for follow of COVID 19 Sitting in chair with no distress Pt said that she continues to cough She said that her pain in her left LE is much better She was placed on oxygen supplement since she was desaturated Denies any chest pain, palpitation, dizziness, SOB and fever Physical Exam Physical Exam: General- No acute distress Head- atraumatic Eyes- PERRL, EOMI, ENT- oropharynx clear Neck- supple, no JVD Lungs- clear to auscultation Heart- regular rhythm; no murmur Abdomen- normal bowel sounds, soft, nontender Extremities- no calf tenderness, tenderness in LLE Neuro- alert, oriented x 3; PERRL, EOMI; no facial palsy; no dysarthria Skin- warm & dry Results & Data Results & Data ([facility]) Vital Signs (Past 12 Hours) Vital Signs Temp Pulse Resp BP BP Pulse Ox 11/27/20 11:20 84 20 93 11/27/20 08:00 36.5 C 61 20 163/76 H 91 11/27/20 07:28 62 20 93 11/27/20 04:00 37.1 C 61 18 131/73 95 (1) Fall Encounter type: initial encounter Qualified Code(s): W19.XXXA - Unspecified fall, initial encounter
[2020-11-27] MEDS: cefTRIAXone SODIUM 1,000 MG in DEXTROSE 5% 50 ML IV SCH (19:52)
[2020-11-27] MEDS: ASPIRIN 81 MG ECTAB PO SCH (20:04)
[2020-11-27] MEDS: INSULIN GLARGINE SOLOSTAR 100 UNITS/ML 3 ML PEN SC SCH (21:19)
[2020-11-28] MEDS: LEVOTHYROXINE SODIUM 100 MCG TABLET PO SCH (05:44)
[2020-11-28 06:31] LABS: Hemoglobin 12.5 g/dL (12.0-16.0); Mean Corpuscular Hemoglobin 30.3 pg (25-34); Mean Corpuscular Hgb Conc 32.1 g/dL (32-36); Mean Corpuscular Volume 94.4 fL (80-100); Mean Platelet Volume 9.1 fL (7.4-10.4); Platelet Count 236 K/uL (130-400); RDW Coefficient of Variation 14.5 % (11.5-14.5); RDW Standard Deviation 49.9 fL (36.4-46.3); Red Blood Count 4.13 M/uL (4.2-5.4); White Blood Count 10.72 K/uL (4.8-10.8)
[2020-11-28 06:48] LABS: INR 3.7 (0.9-1.1); Prothrombin Time 36.6 Seconds (9.0-12.0)
[2020-11-28] MEDS: ALBUTEROL HFA 8 GM INHALER INH SCH ×4 (07:08→19:55)
[2020-11-28] MEDS: IPRATROPIUM BROMIDE HFA INHALER INH SCH ×4 (07:08→19:55)
[2020-11-28 07:09] LABS: BUN Creatinine Ratio 18.2 (10-20); Calcium 8.9 mg/dl (8.5-10.1); Creatinine Clr Calc Pharmacy 13.9 ml/min; Est GFR (African American) 19.3; Est GFR (Non-African American) 16.7; Potassium 3.5 mmol/L (3.5-5.1)
[2020-11-28] MEDS: guaiFENesin 600 MG TABCR PO SCH ×2 (08:52→21:06)
[2020-11-28] MEDS: ALPRAZolam 0.25 MG TABLET PO SCH ×2 (08:52→21:05)
[2020-11-28] MEDS: carvediloL 6.25 MG TAB PO SCH ×2 (08:53→21:05)
[2020-11-28] MEDS: ISOSORBIDE MONO EXTENDED REL 30 MG TABCR PO SCH (08:53)
[2020-11-28] MEDS: hydrALAZINE TAB 50 MG TAB PO SCH ×2 (08:53→21:05)
[2020-11-28] MEDS: ATORVASTATIN 20 MG TAB PO SCH (08:54)
[2020-11-28] MEDS: DOXYCYCLINE HYCLATE 100 MG CAP PO SCH ×2 (08:54→21:06)
[2020-11-28] MEDS ORDERED: FUROSEMIDE 40 MG in SYRINGE 0 ML IV ONE (09:00)
[2020-11-28] MEDS: INSULIN ASPART 100 UNITS/ML 3 ML PEN SC SCH ×4 (09:26→20:30)
[2020-11-28] MEDS: INSULIN GLARGINE SOLOSTAR 100 UNITS/ML 3 ML PEN SC SCH ×2 (09:27→20:30)
--- NOTE | 2020-11-28 15:39 | Hospitalist Progress Note ---
Date of Service November 28, 2020 Assessment & Plan (1) Fall: (2) Left leg pain: Present on admission due to fall related to weakness from acute illness Left femur/Knee xray showed no acute fracture or dislocation within the left femur left knee. Small left knee effusion. Continue PT/OT Not safe to return home as per physical therapist. Recommended to continue PT while in the hospital; if treatment goals not met, recommend inpatient rehab Daughter said that pt cannot go home and agreed to refer to [facility] for rehab Pain improved significantly Fall precaution (3) COVID-19: Testing positive in the ER Seemed to have cough and runny nose for 1 week. Saturating fine on room air. Chest x-ray no significant change compared to the prior study. Does not meet criteria for Remdesivir since pt is saturated well on RA and her GFR is less than 30 She was starting on Decadron 6 mg on admission, does not meet criteria since oxygen sat 96% Decadron discontinued due to confusion and also pt was saturated well on RA Continue guaifenesin BID Continue flutter valve Repeat CXR showed increase in extensive left basilar opacity which could reflect pneumonia or atelectasis. Pulmonary vascular congestion with suspected mild pulmonary edema. ProBNP elevated Spoke to nephrology and ok to give Lasix Lasix 40mg IV given today Continue oxygen supplement for now Check CXR in am Confusion Delirium Multifactorial due to steroid vs UTI vs hospital setting vs acute illness No focal neuro deficit on exam CT head negative for any intracranial abnromality Steroid discontinued daughter said that whenever pt spent 2 days without the Xanax, she becomes confused Daughter insisted that pt to be given her Xanax resolved UTI Denies any urinary symptoms Urine cx positive for gram negative bacilli- Ecoli Continue Rocephin IV, will complete course of abx today Elevation of troponin Possible related to fall and CKD EKG showed no ischemic changes Cardiology consult as per family request Continue aspirin, Statin and carvedilol cardiology was consulted and recommended to continue current management Spoke to cardiology today to call the Daughter Cindy Continue monitor in tele Afib. Tachy/margaret syndrome s/p pacemaker. rate control with Coreg Continue Coumadin, INR 3.7 today Continue monitor PT/IINR Coronary artery disease status post stent Continue aspirin, statin, beta loren and nitrate. Currently stable. Diabetes Most recent hab1c 6.8 Continue Lantus and Insulin sliding scale. Continue monitor BS Hypertension. BP stable Continue hydralazine, Coreg, Lasix, Imdur. Chronic kidney disease stage IV. 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 Last echo in 07/2020 showed EF was 55%. CXR on 11/26 showed pulmonary vascular congestion with suspected mild pulmonary edema. ProBNP elevated Continue home diuretics, Coreg, hydralazine and nitrate. Lasix 40mg IV x1 given today ALISSA Continue cpap @ hs. Hypothyroidism. Continue Synthroid. Hyperlipidemia. Continue statin. Anxiety. Continue alprazolam p.r.n. Hx of CVA Continue coumadin, aspirin and statin. hx of Carotid stenosis. s/p left CEA. Continue aspirin and statin. DVT px on Coumadin with INR 3.7 Disposition Will discharge once medically stable Admission and Anticipated Discharge Date Admission Date: November 22, 2020 Subjective Pt was seen and examined for follow of hypoxia due to COVID 19 Sitting in chair with no distress Pt said that her cough and her LLE pain improve Nurse said that her nails had nail peruvian, but when nurse removed the nails peruvian her oxygen level increased to 95% on 2L NC Denies any chest pain, palpitation, dizziness, SOB and fever Physical Exam Physical Exam: General- No acute distress Head- atraumatic Eyes- PERRL, EOMI, ENT- oropharynx clear Neck- supple, no JVD Lungs- clear to auscultation Heart- regular rhythm; no murmur Abdomen- normal bowel sounds, soft, nontender Extremities- no calf tenderness, tenderness in LLE Neuro- alert, oriented x 3; PERRL, EOMI; no facial palsy; no dysarthria Skin- warm & dry Results & Data Results & Data ([facility]) Vital Signs (Past 12 Hours) Vital Signs Temp Pulse Resp BP Pulse Ox 11/28/20 15:27 60 20 88 L 11/28/20 14:13 82 L 11/28/20 11:20 62 20 94 11/28/20 07:08 60 20 94 11/28/20 07:00 36.7 C 61 16 160/83 H 91 11/28/20 04:00 37 C 47 L 18 133/75 93 (1) Fall Encounter type: initial encounter Qualified Code(s): W19.XXXA - Unspecified fall, initial encounter
[2020-11-28] MEDS: ASPIRIN 81 MG ECTAB PO SCH (21:06)
[2020-11-29] MEDS: LEVOTHYROXINE SODIUM 100 MCG TABLET PO SCH (06:03)
[2020-11-29] MEDS: IPRATROPIUM BROMIDE HFA INHALER INH SCH (07:35)
[2020-11-29] MEDS: ALBUTEROL HFA 8 GM INHALER INH SCH (07:35)
[2020-11-29] MEDS ORDERED: IPRATROPIUM BROMIDE HFA INHALER INH PRN (08:16)
[2020-11-29] MEDS ORDERED: ALBUTEROL HFA 8 GM INHALER INH PRN (08:16)
[2020-11-29 08:24] LABS: INR 4.1 (0.9-1.1)
[2020-11-29 08:42] LABS: Calcium 8.8 mg/dl (8.5-10.1); Creatinine Clr Calc Pharmacy 13.8 ml/min; Est GFR (African American) 19.2; Est GFR (Non-African American) 16.6; Potassium 3.2 mmol/L (3.5-5.1)
[2020-11-29] MEDS: ALPRAZolam 0.25 MG TABLET PO SCH ×2 (08:45→20:47)
[2020-11-29] MEDS: ATORVASTATIN 20 MG TAB PO SCH (08:45)
[2020-11-29] MEDS: hydrALAZINE TAB 50 MG TAB PO SCH ×2 (08:46→20:47)
[2020-11-29] MEDS: ISOSORBIDE MONO EXTENDED REL 30 MG TABCR PO SCH (08:46)
[2020-11-29] MEDS: guaiFENesin 600 MG TABCR PO SCH ×2 (08:46→20:47)
[2020-11-29] MEDS: DOXYCYCLINE HYCLATE 100 MG CAP PO SCH ×2 (08:46→20:47)
[2020-11-29] MEDS: carvediloL 6.25 MG TAB PO SCH ×2 (08:46→20:48)
[2020-11-29] MEDS ORDERED: POTASSIUM CHLORIDE CRTAB 20 MEQ TABCR PO STA (09:05)
[2020-11-29] MEDS ORDERED: FUROSEMIDE 40 MG in SYRINGE 0 ML IV ONE (09:15)
[2020-11-29] MEDS: INSULIN ASPART 100 UNITS/ML 3 ML PEN SC SCH ×4 (09:32→20:50)
[2020-11-29] MEDS: INSULIN GLARGINE SOLOSTAR 100 UNITS/ML 3 ML PEN SC SCH ×2 (09:35→20:54)
--- NOTE | 2020-11-29 17:21 | Hospitalist Progress Note ---
Date of Service November 29, 2020 Assessment & Plan (1) Fall: (2) Left leg pain: Present on admission due to fall related to weakness from acute illness Left femur/Knee xray showed no acute fracture or dislocation within the left femur left knee. Small left knee effusion. Continue PT/OT Not safe to return home as per physical therapist. Recommended to continue PT while in the hospital; if treatment goals not met, recommend inpatient rehab Daughter said that pt cannot go home and agreed to refer to [facility] for rehab Pain improved significantly Fall precaution (3) COVID-19: Testing positive in the ER Seemed to have cough and runny nose for 1 week. Saturating fine on room air. Chest x-ray no significant change compared to the prior study. Does not meet criteria for Remdesivir since pt is saturated well on RA and her GFR is less than 30 She was starting on Decadron 6 mg on admission, does not meet criteria since oxygen sat 96% Decadron discontinued due to confusion and also pt was saturated well on RA Continue guaifenesin BID Continue flutter valve Repeat CXR showed increase in extensive left basilar opacity which could reflect pneumonia or atelectasis. Pulmonary vascular congestion with suspected mild pulmonary edema. ProBNP elevated Spoke to nephrology and ok to give Lasix Lasix 40mg IV given today Continue oxygen supplement for now as needed Will consider to get a 2 step on discharge Will get a CXR in am Confusion Delirium Multifactorial due to steroid vs UTI vs hospital setting vs acute illness No focal neuro deficit on exam CT head negative for any intracranial abnromality Steroid discontinued daughter said that whenever pt spent 2 days without the Xanax, she becomes confused Daughter insisted that pt to be given her Xanax resolved UTI Denies any urinary symptoms Urine cx positive for gram negative bacilli- Ecoli Completed the course of rocephin IV Elevation of troponin Possible related to fall and CKD EKG showed no ischemic changes Cardiology consult as per family request Continue aspirin, Statin and carvedilol cardiology was consulted and recommended to continue current management Spoke to cardiology today to call the Daughter Cindy Continue monitor in tele Afib. Tachy/maragret syndrome s/p pacemaker. rate control with Coreg Continue Coumadin, INR 4.1 today Continue monitor PT/IINR Coronary artery disease status post stent Continue aspirin, statin, beta loren and nitrate. Currently stable. Diabetes Most recent hab1c 6.8 Continue Lantus and Insulin sliding scale. Continue monitor BS Hypertension. BP stable Continue hydralazine, Coreg, Lasix, Imdur. Chronic kidney disease stage IV. 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 Last echo in 07/2020 showed EF was 55%. CXR on 11/26 showed pulmonary vascular congestion with suspected mild pulmonary edema. ProBNP elevated Continue home diuretics, Coreg, hydralazine and nitrate. Lasix 40mg IV x1 given today CXR f/u in am ALISSA Continue cpap @ hs. Hypothyroidism. Continue Synthroid. Hyperlipidemia. Continue statin. Anxiety. Continue alprazolam p.r.n. Hx of CVA Continue coumadin, aspirin and statin. hx of Carotid stenosis. s/p left CEA. Continue aspirin and statin. DVT px on Coumadin with INR 4.1 Disposition Will discharge once medically stable Daughter Cindy requested for updates Admission and Anticipated Discharge Date Admission Date: November 22, 2020 Subjective Pt was seen and examined for follow of hypoxia due to COVID 19 Sitting in chair with no distress Pt said that she feels much better She said that her is much better Denies any chest pain, palpitation, dizziness, SOB and fever Physical Exam Physical Exam: General- No acute distress Head- atraumatic Eyes- PERRL, EOMI, ENT- oropharynx clear Neck- supple, no JVD Lungs- clear to auscultation Heart- regular rhythm; no murmur Abdomen- normal bowel sounds, soft, nontender Extremities- no calf tenderness, tenderness in LLE Neuro- alert, oriented x 3; PERRL, EOMI; no facial palsy; no dysarthria Skin- warm & dry Results & Data Results & Data ([facility]) Vital Signs (Past 12 Hours) Vital Signs Temp Pulse Resp BP Pulse Ox 11/29/20 11:07 36.5 C 62 16 114/71 89 L 11/29/20 09:12 36.8 C 62 18 132/69 90 11/29/20 07:35 60 18 96 (1) Fall Encounter type: initial encounter Qualified Code(s): W19.XXXA - Unspecified fall, initial encounter
[2020-11-29] MEDS: ASPIRIN 81 MG ECTAB PO SCH (20:47)
[2020-11-29] MEDS: ACETAMINOPHEN 325 MG TAB PO PRN (20:48)
[2020-11-30] MEDS: LEVOTHYROXINE SODIUM 100 MCG TABLET PO SCH (06:38)
[2020-11-30 07:11] LABS: BUN Creatinine Ratio 18.5 (10-20); Creatinine Clr Calc Pharmacy 12.2 ml/min; Est GFR (African American) 16.6; Est GFR (Non-African American) 14.3; Potassium 3.8 mmol/L (3.5-5.1)
[2020-11-30] MEDS: ALPRAZolam 0.25 MG TABLET PO SCH ×2 (08:23→20:43)
[2020-11-30] MEDS: ISOSORBIDE MONO EXTENDED REL 30 MG TABCR PO SCH (08:32)
[2020-11-30] MEDS: DOXYCYCLINE HYCLATE 100 MG CAP PO SCH ×2 (08:33→20:43)
[2020-11-30] MEDS: hydrALAZINE TAB 50 MG TAB PO SCH ×2 (08:33→20:43)
[2020-11-30] MEDS: guaiFENesin 600 MG TABCR PO SCH ×2 (08:33→20:44)
[2020-11-30] MEDS: ATORVASTATIN 20 MG TAB PO SCH (08:34)
[2020-11-30] MEDS: carvediloL 6.25 MG TAB PO SCH ×2 (08:34→20:43)
[2020-11-30] MEDS: INSULIN GLARGINE SOLOSTAR 100 UNITS/ML 3 ML PEN SC SCH ×2 (08:43→21:00)
[2020-11-30] MEDS: INSULIN ASPART 100 UNITS/ML 3 ML PEN SC SCH ×4 (08:43→20:32)
--- NOTE | 2020-11-30 08:57 | XRay Report ---
XR chest 1V portable CLINICAL HISTORY: Hypoxia. Follow-up study COMPARISON STUDY: 11/26/2020 FINDINGS: The heart remains enlarged. There is a left subclavian dual-chamber central venous pacemake r. Mild central pulmonary vascular congestion is suspected. There are bilateral pulmonary airspace op acities with improved aeration on the left. Small effusions are suspected.[ IMPRESSION: Cardiomegaly and bilateral pulmonary airspace opacities. Interval improvement in the aera tion of the left lung. ACT 112: Negative or not required by law. Electronically signed by: Josiah Salazar M.D. 11/30/2020 8:55 AM
--- NOTE | 2020-11-30 09:12 | Hospitalist Progress Note ---
Date of Service November 30, 2020 Assessment & Plan (1) Fall: (2) Left leg pain: Present on admission due to fall related to weakness from acute illness Left femur/Knee xray showed no acute fracture or dislocation within the left femur left knee. Small left knee effusion. Continue PT/OT Not safe to return home as per physical therapist. Recommended to continue PT while in the hospital; if treatment goals not met, recommend inpatient rehab Daughter said that pt cannot go home and agreed to refer to [facility] for rehab Pain improved significantly Fall precaution (3) COVID-19: Testing positive in the ER Seemed to have cough and runny nose for 1 week. Saturating fine on room air on admission Chest x-ray no significant change compared to the prior study. Does not meet criteria for Remdesivir since pt is saturated well on RA and her G FR is less than 30 She was starting on Decadron 6 mg on admission, does not meet criteria since oxygen sat 96% Decadron discontinued due to confusion and also pt was saturated well on RA Continue guaifenesin BID Continue flutter valve Now pt hypoxic however, and on 2-3L of suppl. o2 Repeat CXR showed increase in extensive left basilar opacity which could reflect pneumonia or atelectasis. Pulmonary vascular congestion with suspected mild pulmonary edema. ProBNP elevated Spoke to nephrology and ok to give Lasix Lasix 40mg IV given 11/29 CXR this am 11/30 improved However Cr incr to 2.8, will discuss w/ nephrology- will cont. IV lasix Continue oxygen supplement for now as needed Will consider to get a 2 step on discharge Confusion Delirium Multifactorial due to steroid vs UTI vs hospital setting vs acute illness No focal neuro deficit on exam CT head negative for any intracranial abnormality Steroid discontinued daughter said that whenever pt spent 2 days without the Xanax, she becomes confused Daughter insisted that pt to be given her Xanax resolved UTI Denies any urinary symptoms Urine cx positive for gram negative bacilli- Ecoli Completed the course of rocephin IV Elevation of troponin Possible related to fall and CKD EKG showed no ischemic changes Cardiology consult as per family request Continue aspirin, Statin and carvedilol cardiology was consulted and recommended to continue current management Spoke to cardiology to call the Daughter Cindy Continue monitor in tele Afib. Tachy/margaret syndrome s/p pacemaker. rate control with Coreg Continue Coumadin, INR 3.8 11/30 Continue monitor PT/IINR Coronary artery disease status post stent Continue aspirin, statin, beta loren and nitrate. Currently stable. Diabetes Most recent HgbA1c 6.8 % Continue Lantus and Insulin sliding scale. Continue monitor BS Hypertension. BP stable Continue hydralazine, Coreg, Lasix, Imdur. Chronic kidney disease stage IV. 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 Last echo in 07/2020 showed EF was 55%. CXR on 11/26 showed pulmonary vascular congestion with suspected mild pulmonary edema. ProBNP elevated Continue home diuretics, Coreg, hydralazine and nitrate. Lasix 40mg IV x1 given 11/29 Lasix 60 mg IV per nephro CXR am 11/30 - improved aeration -CXR ALISSA - Continue cpap @ hs. Hypothyroidism. - Continue Synthroid. Hyperlipidemia. - Continue statin. Anxiety. - Continue alprazolam p.r.n. Hx of CVA - Continue coumadin, aspirin and statin. hx of Carotid stenosis. s/p left CEA. Continue aspirin and statin. DVT px on Coumadin with INR 4.1 Disposition Will discharge once medically stable Daughter Cindy requested for updates Admission and Anticipated Discharge Date Admission Date: November 22, 2020 Subjective Pt was seen and examined for follow of hypoxia due to COVID 19 Per nursing staff pt requires O2 w/ ambulation especially Sitting in chair with no distress , however complains of buttocks discomfort Denies any chest pain, palpitation, dizziness, SOB and fever Cr incr 2.8 - nephrology consulted CXR this AM improved Review of Systems Review of Systems: All systems reviewed & are unremarkable except as noted in HPI & below Constitutional: no fever and no chills Respiratory: + dyspnea Cardiovascular: no chest pain and no palpitations Gastrointestinal: no abdominal pain, no nausea and no vomiting Physical Exam Physical Exam: General- elderly female, No acute distress Head- atraumatic Eyes- PERRL, EOMI, ENT- oropharynx clear Neck- supple, no JVD Lungs- clear to auscultation but somewhat diminished breath sounds Heart- regular rhythm; no murmur Abdomen- normal bowel sounds, soft, nontender Extremities- no calf tenderness, tenderness in LLE Neuro- alert, oriented x 3; PERRL, EOMI; no facial palsy; no dysarthria, moves extremities Skin- warm & dry Results & Data Results & Data ([facility]) Vital Signs (Past 12 Hours) Vital Signs Temp Pulse Pulse Resp BP BP Pulse Ox 11/30/20 07:58 36.6 C 63 20 123/73 90 11/30/20 04:10 36.7 C 60 20 129/73 92 11/30/20 01:27 100 11/30/20 00:39 60 11/29/20 23:50 36.7 C 59 L 20 129/75 100 Laboratory Results 11/30/20 11/30/20 11/29/20 Range/Units 07:56 06:24 20:44 Sodium 138 (136-145) mmol/L Potassium 3.8 D (3.5-5.1) mmol/L Chloride 109 H (98-107) mmol/L Carbon Dioxide 19 L (21-32) mmol/L Anion Gap 10.0 (3-11) BUN 52 H (7-18) mg/dl Creatinine 2.83 H D (0.6-1.2) mg/dl Est Cr Clr Drug Dosing 12.2 ml/min Est GFR ( Amer) 16.6 Est GFR (Non-Af Amer) 14.3 BUN/Creatinine Ratio 18.5 (10-20) Glucose 169 H (70-99) mg/dl POC Glucose 181 H 122 H (70-99) mg/dl Calcium 9.0 (8.5-10.1) mg/dl 11/29/20 11/29/20 Range/Units 17:16 11:44 Sodium (136-145) mmol/L Potassium (3.5-5.1) mmol/L Chloride (98-107) mmol/L Carbon Dioxide (21-32) mmol/L Anion Gap (3-11) BUN (7-18) mg/dl Creatinine (0.6-1.2) mg/dl Est Cr Clr Drug Dosing ml/min Est GFR ( Amer) Est GFR (Non-Af Amer) BUN/Creatinine Ratio (10-20) Glucose (70-99) mg/dl POC Glucose 184 H 231 H (70-99) mg/dl Calcium (8.5-10.1) mg/dl Medications Administered Current Inpatient Medications Acetaminophen (Acetaminophen 325 Mg Tab) 650 mg PO Q4H PRN PRN Reason: Pain or Fever Stop: 12/21/20 21:51 Last Admin: 11/29/20 20:48 Dose: 650 mg Documented by: Albuterol (Albuterol Hfa 8 Gm Inhaler) 1 puffs INH QIDR PRN PRN Reason: Shortness Of Breath Or Wheezin Stop: 12/26/20 18:59 Alprazolam (Alprazolam 0.25 Mg Tablet) 0.25 mg PO BID [facility] Stop: 12/23/20 21:29 Last Admin: 11/30/20 08:23 Dose: 0.25 mg Documented by: Aspirin (Aspirin 81 Mg Ectab) 81 mg PO HS [facility] Stop: 12/22/20 20:59 Last Admin: 11/29/20 20:47 Dose: 81 mg Documented by: Atorvastatin Calcium (Atorvastatin 20 Mg Tab) 20 mg PO QAM [facility] Stop: 12/22/20 08:59 Last Admin: 11/30/20 08:34 Dose: 20 mg Documented by: Carvedilol (Carvedilol 6.25 Mg Tab) 6.25 mg PO BID [facility] Stop: 12/21/20 21:51 Last Admin: 11/30/20 08:34 Dose: 6.25 mg Documented by: Doxycycline Hyclate (Doxycycline Hyclate 100 Mg Cap) 100 mg PO BID [facility] Stop: 12/03/20 21:59 Last Admin: 11/30/20 08:33 Dose: 100 mg Documented by: Furosemide (Furosemide 40 Mg Tab) 40 mg PO QAM [facility] Stop: 12/22/20 08:59 Last Admin: 11/27/20 08:28 Dose: 40 mg Documented by: Guaifenesin (Guaifenesin 600 Mg Tabcr) 600 mg PO Q12 [facility] Stop: 12/24/20 20:59 Last Admin: 11/30/20 08:33 Dose: 600 mg Documented by: Hydralazine HCl (Hydralazine Tab 50 Mg Tab) 50 mg PO BID [facility] Stop: 12/21/20 21:51 Last Admin: 11/30/20 08:33 Dose: 50 mg Documented by: Insulin Aspart (Insulin Aspart 100 Units/Ml 3 Ml Pen) 0 units SC ACHS [facility] Stop: 12/21/20 22:29 Last Admin: 11/30/20 08:43 Dose: 9 units Documented by: Insulin Glargine (Insulin Glargine Solostar 100 Units/Ml 3 Ml Pen) 10 units SC BID [facility] Stop: 12/28/20 20:59 Last Admin: 11/30/20 08:43 Dose: 10 units Documented by: Ipratropium Sullivan (Ipratropium Sullivan Hfa Inhaler) 1 puffs INH QIDR PRN PRN Reason: Shortness Of Breath Or Wheezing Stop: 12/26/20 18:59 Isosorbide Mononitrate (Isosorbide [place] Extended Rel 30 Mg Tabcr) 30 mg PO DAILY [facility] Stop: 12/22/20 08:59 Last Admin: 11/30/20 08:32 Dose: 30 mg Documented by: Levothyroxine Sodium (Levothyroxine Sodium 100 Mcg Tablet) 100 mcg PO DAILYBB [facility] Stop: 12/22/20 06:29 Last Admin: 11/30/20 06:38 Dose: 100 mcg Documented by: Loperamide HCl (Loperamide Hcl 2 Mg Cap) 2 mg PO Q3H PRN PRN Reason: Diarrhea Stop: 12/21/20 21:51 Nitroglycerin (Nitroglycerin Sl 0.4 Mg/Tab Tab) 0.4 mg SL UD PRN PRN Reason: Chest Pain Stop: 12/21/20 21:51 Ondansetron HCl (Ondansetron Inj 2 Mg/Ml 2 Ml Vial) 4 mg IV Q6H PRN PRN Reason: Nausea Stop: 12/21/20 21:51 Polyethylene Glycol (Polyethylene (Miralax) 17 Gm Pack) 17 gm PO DAILY PRN PRN Reason: Constipation Stop: 12/21/20 21:51 Last Admin: 11/29/20 12:54 Dose: 17 gm Documented by: Warfarin Sodium (Warfarin Sod 2.5 Mg Tab) 2.5 mg PO [email or web address] [facility] Stop: 12/22/20 20:59 Last Admin: 11/26/20 20:34 Dose: 2.5 mg Documented by: Warfarin Sodium (Warfarin Sod 5 Mg Tab) 5 mg PO [email or web address] [facility] Stop: 12/25/20 20:59 Last Admin: 11/25/20 20:50 Dose: 5 mg Documented by: (1) Fall Encounter type: initial encounter Qualified Code(s): W19.XXXA - Unspecified fall, initial encounter
[2020-11-30 09:43] LABS: INR 3.8 (0.9-1.1); Prothrombin Time 37.6 Seconds (9.0-12.0)
[2020-11-30] MEDS: FUROSEMIDE 60 MG in SYRINGE 0 ML IV SCH (12:29)
--- NOTE | 2020-11-30 12:39 | Consultation Report ---
DATE OF CONSULTATION: 11/30/2020 NEPHROLOGY CONSULTATION NOTE REASON FOR CONSULT: [id number] renal failure. HISTORY OF PRESENT ILLNESS: The patient is an 89-year-old female who has been in the hospital for many days now because of COVID-19 infection. She had a fall secondary to weakness 10 days ago. She does have preexisting chronic kidney disease. Her baseline creatinine is around 2.2. At the time of admission, creatinine was 2.5. She also has significant history of congestive heart failure and has been on diuretics, which has been continued even as an inpatient. She is improving, but very gradually overall, the creatinine has remained fairly stable in the very tight range for the last 10 days. This morning, creatinine was 2.83, which is a little higher than what she has been and after which nephrology was consulted. Chest x-ray and other findings show she is having increasing pulmonary congestion. As a result, I have been consulted. PAST MEDICAL AND SURGICAL HISTORY: Includes type 2 diabetes, hypothyroidism, hyperlipidemia, hyperparathyroidism, chronic kidney disease stage IV with a baseline creatinine of 2.2, hypertension, coronary artery disease, history of systolic congestive heart failure, aortic stenosis, mitral regurgitation, obstructive sleep apnea, chronic atrial fibrillation, status post cardiac pacemaker, status post angioplasty with stent, hysterectomy, cholecystectomy, hip repair. MEDICATIONS: At home was reviewed in detail and is as per the reconciliation list. She does take potassium as well as Lasix 40 daily. FAMILY HISTORY: Negative for renal disease or dialysis. SOCIAL HISTORY: She is , lives alone in her apartment for the last 30 years. She quit smoking in 1970. No alcohol, no drugs. REVIEW OF SYSTEMS: As per HPI. Overall, she had weakness and some congestion with cough and some shortness of breath prior to hospitalization, which she still has. PHYSICAL EXAMINATION: GENERAL: Moderate built. She is not in any overt respiratory distress. She is awake, alert, oriented x3 and was able to give me a very detailed account of her overall life history. HEENT: Mucous membranes moist. NECK: Supple. No jugular venous distention. CARDIOVASCULAR: S1 and S2, regular rate and rhythm. Soft systolic murmur heard. ABDOMEN: Soft, nontender. EXTREMITIES: Show no edema. CHEST: Bilateral decreased breath sounds, occasional crackles. NEUROLOGIC: Awake, alert, oriented x3. LABORATORY TESTS: Reviewed in detail. Baseline creatinine 2.2. Admission creatinine was 2.5. Current creatinine is 2.83 and is on a rising trend. Chest x-ray shows pulmonary congestion with cardiomegaly. ASSESSMENT AND PLAN: An 89-year-old female with multiple medical problems including chronic kidney disease stage IV with a baseline creatinine of 2.2, admitted 10 days ago with a chief complaint of fall, weakness in the setting of COVID-19 infection. I have been consulted for acute renal failure and fluid status. Acute renal failure: The acute component is very minimal as even at baseline, she had a creatinine of 2.2 She is not in volume depletion. At this time, if anything, she has pulmonary congestion and it is causing some problem. I would give her Lasix 60 mg IV x1 and probably daily. Renal function has been fairly stable, even though she has been in the hospital for about 10 days now, but there is a significant chance that she might have some decline in the coming days depending on her overall trend. We will continue to follow. Continue daily laboratories. Continue input/output charting. Avoid nephrotoxic agent. MTDD
[2020-11-30] MEDS: ACETAMINOPHEN 325 MG TAB PO PRN (15:54)
[2020-11-30 16:15] LABS: Appearance Urine Clear (Clear); Bacteria Urine Automated 1+ (Negative); Bilirubin Urine Negative (Negative); Blood Urine Negative (Negative); Color Urine Yellow; Glucose Urine UA 1+ (Negative); Ketones Urine Negative (Negative); Leukocyte Esterase Urine Negative (Negative); Nitrite Urine Negative (Negative); Protein Urine 1+ (Negative); RBC Urine Automated 0-4 /hpf (0-4); Specific Gravity Urine 1.016 (1.000-1.030); Urobilinogen Urine Negative (Negative)
[2020-11-30] MEDS: ASPIRIN 81 MG ECTAB PO SCH (20:44)
[2020-12-01] MEDS: LEVOTHYROXINE SODIUM 100 MCG TABLET PO SCH (06:07)
[2020-12-01 06:40] LABS: Hematocrit (blood only) 38.2 % (37-47); Hemoglobin 12.4 g/dL (12.0-16.0); Mean Corpuscular Hemoglobin 30.2 pg (25-34); Mean Corpuscular Hgb Conc 32.5 g/dL (32-36); Mean Corpuscular Volume 92.9 fL (80-100); Mean Platelet Volume 9.1 fL (7.4-10.4); Platelet Count 285 K/uL (130-400); RDW Coefficient of Variation 14.7 % (11.5-14.5); RDW Standard Deviation 49.9 fL (36.4-46.3); Red Blood Count 4.11 M/uL (4.2-5.4); White Blood Count 8.47 K/uL (4.8-10.8)
[2020-12-01 06:51] LABS: INR 3.5 (0.9-1.1); Prothrombin Time 34.4 Seconds (9.0-12.0)
[2020-12-01 07:06] LABS: BUN Creatinine Ratio 19.9 (10-20); Calcium 8.9 mg/dl (8.5-10.1); Est GFR (African American) 17.9; Est GFR (Non-African American) 15.5; Magnesium 2.3 mg/dl (1.8-2.4); Phosphorus 3.3 mg/dl (2.5-4.9); Potassium 3.2 mmol/L (3.5-5.1)
[2020-12-01] MEDS ORDERED: POTASSIUM CHLORIDE CRTAB 20 MEQ TABCR PO STA (07:44)
--- NOTE | 2020-12-01 07:44 | Hospitalist Progress Note ---
Date of Service December 01, 2020 Assessment & Plan (1) Fall: (2) Left leg pain: Present on admission due to fall related to weakness from acute illness Left femur/Knee xray showed no acute fracture or dislocation within the left femur left knee. Small left knee effusion. Continue PT/OT Not safe to return home as per physical therapist. Recommended to continue PT while in the hospital; if treatment goals not met, recommend inpatient rehab Daughter said that pt cannot go home and agreed to refer to [facility] for rehab Pain improved significantly Fall precaution (3) COVID-19: Testing positive in the ER Seemed to have cough and runny nose for 1 week. Saturating fine on room air on admission Chest x-ray no significant change compared to the prior study. Does not meet criteria for Remdesivir since pt saturated well on RA and her GFR is less than 30 She was starting on Decadron 6 mg on admission, does not meet criteria since oxygen sat 96% Decadron discontinued due to confusion and also pt was saturated well on RA Continue guaifenesin BID Continue flutter valve Now pt hypoxic however, and on 2-3L of suppl. o2 Repeat CXR showed increase in extensive left basilar opacity which could reflect pneumonia or atelectasis. Pulmonary vascular congestion with suspected mild pulmonary edema. ProBNP elevated Spoke to nephrology and ok to give Lasix Lasix 40mg IV given 11/29 CXR am 11/30 improved However Cr incr to 2.8, will discuss w/ nephrology- will cont. IV lasix Continue oxygen supplement for now as needed Will consider to get a 2 step on discharge Pt now on RA, satting in high 90s%, received lasix 60 IV 12/01, plan to switch to PO tmrw (12/02) Confusion Delirium Multifactorial due to steroid vs UTI vs hospital setting vs acute illness No focal neuro deficit on exam CT head negative for any intracranial abnormality Steroid discontinued daughter said that whenever pt spent 2 days without the Xanax, she becomes confused Daughter insisted that pt to be given her Xanax resolved UTI Denies any urinary symptoms Urine cx positive for gram negative bacilli- Ecoli Completed the course of rocephin IV Elevation of troponin Possible related to fall and CKD EKG showed no ischemic changes Cardiology consult as per family request Continue aspirin, Statin and carvedilol cardiology was consulted and recommended to continue current management Spoke to cardiology to call the Daughter Cindy Continue monitor in tele Afib. Tachy/margaret syndrome s/p pacemaker. rate control with Coreg Continue Coumadin, INR 3.8 11/30 Continue monitor PT/IINR Coronary artery disease status post stent Continue aspirin, statin, beta loren and nitrate. Currently stable. Diabetes Most recent HgbA1c 6.8 % Continue Lantus and Insulin sliding scale. Continue monitor BS Hypertension. BP stable Continue hydralazine, Coreg, Lasix, Imdur. Chronic kidney disease stage IV. Baseline creatinine 2.2-2.4, Creatinine 2.8 (11/30) Nephrology consulted Lasix 40mg IV x1 on 11/29 Lasix 60 mg IV on 11/30 Cr now 2.6, cont. 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 Last echo in 07/2020 showed EF was 55%. CXR on 11/26 showed pulmonary vascular congestion with suspected mild pulmonary edema. ProBNP elevated Continue home diuretics, Coreg, hydralazine and nitrate. Lasix 40mg IV x1 given 11/29 Lasix 60 mg IV per nephro CXR am 11/30 - improved aeration -CXR ALISSA - Continue cpap @ hs. Hypothyroidism. - Continue Synthroid. Hyperlipidemia. - Continue statin. Anxiety. - Continue alprazolam p.r.n. Hx of CVA - Continue coumadin, aspirin and statin. hx of Carotid stenosis. s/p left CEA. Continue aspirin and statin. DVT px on Coumadin with INR 4.1 Disposition Will discharge once medically stable Daughter Cindy - updated over the phone Admission and Anticipated Discharge Date Admission Date: November 22, 2020 Subjective Pt was seen and examined for follow of hypoxia due to COVID 19, fluid overload Per nursing staff pt requires O2 w/ ambulation especially -today switched pulse ox -applied on forehead, pt satting in high 90s, while I'm in the room even 100% Will pt ambulate and check O2 sats Pt is sitting in chair with no distress , however complains of buttocks discomfort Denies any chest pain, palpitation, dizziness, SOB and fever Review of Systems Review of Systems: All systems reviewed & are unremarkable except as noted in HPI & below Constitutional: + fatigue; no fever and no chills Respiratory: no cough and no dyspnea Cardiovascular: no chest pain and no palpitations Gastrointestinal: no abdominal pain, no nausea and no vomiting Physical Exam Physical Exam: General- elderly female, No acute distress Head- atraumatic Eyes- PERRL, EOMI, ENT- oropharynx clear Neck- supple, no JVD Lungs- clear to auscultation but somewhat diminished breath sounds Heart- regular rhythm; no murmur Abdomen- normal bowel sounds, soft, nontender Extremities- no calf tenderness, tenderness in LLE Neuro- alert, oriented x 3; PERRL, EOMI; no facial palsy; no dysarthria, moves extremities Skin- warm & dry Results & Data Results & Data ([facility]) Vital Signs (Past 12 Hours) Vital Signs Temp Pulse Pulse Resp BP Pulse Ox 12/01/20 07:34 60 12/01/20 07:33 36.9 C 59 L 20 113/64 94 12/01/20 02:58 36.9 C 60 16 129/78 96 12/01/20 02:57 98 12/01/20 01:33 60 11/30/20 23:05 36.7 C 61 17 130/70 92 11/30/20 19:55 36.8 C 63 19 130/73 94 Laboratory Results 12/01/20 12/01/20 12/01/20 Range/Units 07:35 06:07 06:07 WBC 8.47 (4.8-10.8) K/uL RBC 4.11 L (4.2-5.4) M/uL Hgb 12.4 (12.0-16.0) g/dL Hct 38.2 (37-47) % MCV 92.9 (80-100) fL MCH 30.2 (25-34) pg MCHC 32.5 (32-36) g/dL RDW Std Deviation 49.9 H (36.4-46.3) fL RDW Coeff of Jo [place] 14.7 H (11.5-14.5) % Plt Count 285 (130-400) K/uL MPV 9.1 (7.4-10.4) fL PT (9.0-12.0) Seconds INR (0.9-1.1) Sodium 139 (136-145) mmol/L Potassium 3.2 L D (3.5-5.1) mmol/L Chloride 111 H (98-107) mmol/L Carbon Dioxide 18 L (21-32) mmol/L Anion Gap 11.0 (3-11) BUN 53 H (7-18) mg/dl Creatinine 2.65 H (0.6-1.2) mg/dl Est Cr Clr Drug Dosing 13.0 ml/min Est GFR ( Amer) 17.9 Est GFR (Non-Af Amer) 15.5 BUN/Creatinine Ratio 19.9 (10-20) Glucose 139 H (70-99) mg/dl POC Glucose 131 H (70-99) mg/dl Calcium 8.9 (8.5-10.1) mg/dl Phosphorus 3.3 (2.5-4.9) mg/dl Magnesium 2.3 (1.8-2.4) mg/dl Urine Color Urine Appearance (Clear) Urine pH (4.5-7.5) Ur Specific [place] (1.000-1.030) Urine Protein (Negative) Urine Glucose (UA) (Negative) Urine Ketones (Negative) Urine Blood (Negative) Urine Nitrite (Negative) Urine Bilirubin (Negative) Urine Urobilinogen (Negative) Ur Leukocyte Esterase (Negative) Urine WBC (Auto) (0-5) /hpf Urine RBC (Auto) (0-4) /hpf U Hyaline Cast (Auto) (0-5) /lpf U Epithel Cells (Auto) (0-5) /lpf Urine Bacteria (Auto) (Negative) Granular Casts (0) /lpf Urine Yeast (None Prsent) 12/01/20 11/30/20 11/30/20 Range/Units 06:07 19:59 16:57 WBC (4.8-10.8) K/uL RBC (4.2-5.4) M/uL Hgb (12.0-16.0) g/dL Hct (37-47) % MCV (80-100) fL MCH (25-34) pg MCHC (32-36) g/dL RDW Std Deviation (36.4-46.3) fL RDW Coeff of Jo [place] (11.5-14.5) % Plt Count (130-400) K/uL MPV (7.4-10.4) fL PT 34.4 H (9.0-12.0) Seconds INR 3.5 H (0.9-1.1) Sodium (136-145) mmol/L Potassium (3.5-5.1) mmol/L Chloride (98-107) mmol/L Carbon Dioxide (21-32) mmol/L Anion Gap (3-11) BUN (7-18) mg/dl Creatinine (0.6-1.2) mg/dl Est Cr Clr Drug Dosing ml/min Est GFR ( Amer) Est GFR (Non-Af Amer) BUN/Creatinine Ratio (10-20) Glucose (70-99) mg/dl POC Glucose 194 H 154 H (70-99) mg/dl Calcium (8.5-10.1) mg/dl Phosphorus (2.5-4.9) mg/dl Magnesium (1.8-2.4) mg/dl Urine Color Urine Appearance (Clear) Urine pH (4.5-7.5) Ur Specific [place] (1.000-1.030) Urine Protein (Negative) Urine Glucose (UA) (Negative) Urine Ketones (Negative) Urine Blood (Negative) Urine Nitrite (Negative) Urine Bilirubin (Negative) Urine Urobilinogen (Negative) Ur Leukocyte Esterase (Negative) Urine WBC (Auto) (0-5) /hpf Urine RBC (Auto) (0-4) /hpf U Hyaline Cast (Auto) (0-5) /lpf U Epithel Cells (Auto) (0-5) /lpf Urine Bacteria (Auto) (Negative) Granular Casts (0) /lpf Urine Yeast (None Prsent) 11/30/20 11/30/20 11/30/20 Range/Units 16:00 11:36 07:56 WBC (4.8-10.8) K/uL RBC (4.2-5.4) M/uL Hgb (12.0-16.0) g/dL Hct (37-47) % MCV (80-100) fL MCH (25-34) pg MCHC (32-36) g/dL RDW Std Deviation (36.4-46.3) fL RDW Coeff of [place] (11.5-14.5) % Plt Count (130-400) K/uL MPV (7.4-10.4) fL PT (9.0-12.0) Seconds INR (0.9-1.1) Sodium (136-145) mmol/L Potassium (3.5-5.1) mmol/L Chloride (98-107) mmol/L Carbon Dioxide (21-32) mmol/L Anion Gap (3-11) BUN (7-18) mg/dl Creatinine (0.6-1.2) mg/dl Est Cr Clr Drug Dosing ml/min Est GFR ( Amer) Est GFR (Non-Af Amer) BUN/Creatinine Ratio (10-20) Glucose (70-99) mg/dl POC Glucose 161 H 181 H (70-99) mg/dl Calcium (8.5-10.1) mg/dl Phosphorus (2.5-4.9) mg/dl Magnesium (1.8-2.4) mg/dl Urine Color Yellow Urine Appearance Clear (Clear) Urine pH 5.0 (4.5-7.5) Ur Specific [place] 1.016 (1.000-1.030) Urine Protein 1+ H (Negative) Urine Glucose (UA) 1+ H (Negative) Urine Ketones Negative (Negative) Urine Blood Negative (Negative) Urine Nitrite Negative (Negative) Urine Bilirubin Negative (Negative) Urine Urobilinogen Negative (Negative) Ur Leukocyte Esterase Negative (Negative) Urine WBC (Auto) 1-5 (0-5) /hpf Urine RBC (Auto) 0-4 (0-4) /hpf U Hyaline Cast (Auto) 1-5 (0-5) /lpf U Epithel Cells (Auto) 10-20 H (0-5) /lpf Urine Bacteria (Auto) 1+ H (Negative) Granular Casts 1-5 H (0) /lpf Urine Yeast Budding A (None Prsent) 11/30/20 Range/Units 06:33 WBC (4.8-10.8) K/uL RBC (4.2-5.4) M/uL Hgb (12.0-16.0) g/dL Hct (37-47) % MCV (80-100) fL MCH (25-34) pg MCHC (32-36) g/dL RDW Std Deviation (36.4-46.3) fL RDW Coeff of [place] (11.5-14.5) % Plt Count (130-400) K/uL MPV (7.4-10.4) fL PT 37.6 H (9.0-12.0) Seconds INR 3.8 H (0.9-1.1) Sodium (136-145) mmol/L Potassium (3.5-5.1) mmol/L Chloride (98-107) mmol/L Carbon Dioxide (21-32) mmol/L Anion Gap (3-11) BUN (7-18) mg/dl Creatinine (0.6-1.2) mg/dl Est Cr Clr Drug Dosing ml/min Est GFR ( Amer) Est GFR (Non-Af Amer) BUN/Creatinine Ratio (10-20) Glucose (70-99) mg/dl POC Glucose (70-99) mg/dl Calcium (8.5-10.1) mg/dl Phosphorus (2.5-4.9) mg/dl Magnesium (1.8-2.4) mg/dl Urine Color Urine Appearance (Clear) Urine pH (4.5-7.5) Ur Specific [place] (1.000-1.030) Urine Protein (Negative) Urine Glucose (UA) (Negative) Urine Ketones (Negative) Urine Blood (Negative) Urine Nitrite (Negative) Urine Bilirubin (Negative) Urine Urobilinogen (Negative) Ur Leukocyte Esterase (Negative) Urine WBC (Auto) (0-5) /hpf Urine RBC (Auto) (0-4) /hpf U Hyaline Cast (Auto) (0-5) /lpf U Epithel Cells (Auto) (0-5) /lpf Urine Bacteria (Auto) (Negative) Granular Casts (0) /lpf Urine Yeast (None Prsent) Medications Administered Current Inpatient Medications Acetaminophen (Acetaminophen 325 Mg Tab) 650 mg PO Q4H PRN PRN Reason: Pain or Fever Stop: 12/21/20 21:51 Last Admin: 11/30/20 15:54 Dose: 650 mg Documented by: Albuterol (Albuterol Hfa 8 Gm Inhaler) 1 puffs INH QIDR PRN PRN Reason: Shortness Of Breath Or Wheezin Stop: 12/26/20 18:59 Alprazolam (Alprazolam 0.25 Mg Tablet) 0.25 mg PO BID [facility] Stop: 12/23/20 21:29 Last Admin: 11/30/20 20:43 Dose: 0.25 mg Documented by: Aspirin (Aspirin 81 Mg Ectab) 81 mg PO HS [facility] Stop: 12/22/20 20:59 Last Admin: 11/30/20 20:44 Dose: 81 mg Documented by: Atorvastatin Calcium (Atorvastatin 20 Mg Tab) 20 mg PO QAM [facility] Stop: 12/22/20 08:59 Last Admin: 11/30/20 08:34 Dose: 20 mg Documented by: Carvedilol (Carvedilol 6.25 Mg Tab) 6.25 mg PO BID [facility] Stop: 12/21/20 21:51 Last Admin: 11/30/20 20:43 Dose: 6.25 mg Documented by: Doxycycline Hyclate (Doxycycline Hyclate 100 Mg Cap) 100 mg PO BID [facility] Stop: 12/03/20 21:59 Last Admin: 11/30/20 20:43 Dose: 100 mg Documented by: Furosemide (Furosemide 40 Mg Tab) 40 mg PO QAM [facility] Stop: 12/22/20 08:59 Last Admin: 11/27/20 08:28 Dose: 40 mg Documented by: Guaifenesin (Guaifenesin 600 Mg Tabcr) 600 mg PO Q12 [facility] Stop: 12/24/20 20:59 Last Admin: 11/30/20 20:44 Dose: 600 mg Documented by: Hydralazine HCl (Hydralazine Tab 50 Mg Tab) 50 mg PO BID [facility] Stop: 12/21/20 21:51 Last Admin: 11/30/20 20:43 Dose: 50 mg Documented by: Furosemide 60 mg/ Syringe 6 mls @ 4 mls/min IV QAM [facility] Stop: 12/30/20 10:59 Last Admin: 11/30/20 12:29 Dose: 4 mls/min Documented by: Insulin Aspart (Insulin Aspart 100 Units/Ml 3 Ml Pen) 0 units SC ACHS [facility] Stop: 12/21/20 22:29 Last Admin: 11/30/20 20:32 Dose: 1 units Documented by: Insulin Glargine (Insulin Glargine Solostar 100 Units/Ml 3 Ml Pen) 10 units SC BID [facility] Stop: 12/28/20 20:59 Last Admin: 11/30/20 21:00 Dose: 10 units Documented by: Ipratropium Olla (Ipratropium Olla Hfa Inhaler) 1 puffs INH QIDR PRN PRN Reason: Shortness Of Breath Or Wheezing Stop: 12/26/20 18:59 Isosorbide Mononitrate (Isosorbide [place] Extended Rel 30 Mg Tabcr) 30 mg PO DAILY [facility] Stop: 12/22/20 08:59 Last Admin: 11/30/20 08:32 Dose: 30 mg Documented by: Levothyroxine Sodium (Levothyroxine Sodium 100 Mcg Tablet) 100 mcg PO DAILYBB [facility] Stop: 12/22/20 06:29 Last Admin: 12/01/20 06:07 Dose: 100 mcg Documented by: Loperamide HCl (Loperamide Hcl 2 Mg Cap) 2 mg PO Q3H PRN PRN Reason: Diarrhea Stop: 12/21/20 21:51 Nitroglycerin (Nitroglycerin Sl 0.4 Mg/Tab Tab) 0.4 mg SL UD PRN PRN Reason: Chest Pain Stop: 12/21/20 21:51 Ondansetron HCl (Ondansetron Inj 2 Mg/Ml 2 Ml Vial) 4 mg IV Q6H PRN PRN Reason: Nausea Stop: 12/21/20 21:51 Polyethylene Glycol (Polyethylene (Miralax) 17 Gm Pack) 17 gm PO DAILY PRN PRN Reason: Constipation Stop: 12/21/20 21:51 Last Admin: 11/29/20 12:54 Dose: 17 gm Documented by: Potassium Chloride (Potassium Chloride Crtab 20 Meq Tabcr) 40 meq PO NOW STA Stop: 12/01/20 07:41 Warfarin Sodium (Warfarin Sod 2.5 Mg Tab) 2.5 mg PO [id number]@2100 [facility] Stop: 12/22/20 20:59 Last Admin: 11/26/20 20:34 Dose: 2.5 mg Documented by: Warfarin Sodium (Warfarin Sod 5 Mg Tab) 5 mg PO [id number]@2100 [facility] Stop: 12/25/20 20:59 Last Admin: 11/25/20 20:50 Dose: 5 mg Documented by: (1) Fall Encounter type: initial encounter Qualified Code(s): W19.XXXA - Unspecified fall, initial encounter
[2020-12-01] MEDS: guaiFENesin 600 MG TABCR PO SCH ×2 (08:42→21:46)
[2020-12-01] MEDS: ALPRAZolam 0.25 MG TABLET PO SCH ×2 (08:42→21:44)
[2020-12-01] MEDS: carvediloL 6.25 MG TAB PO SCH ×2 (08:42→21:45)
[2020-12-01] MEDS: DOXYCYCLINE HYCLATE 100 MG CAP PO SCH ×2 (08:42→21:46)
[2020-12-01] MEDS: FUROSEMIDE 60 MG in SYRINGE 0 ML IV SCH (08:42)
[2020-12-01] MEDS: ATORVASTATIN 20 MG TAB PO SCH (08:42)
[2020-12-01] MEDS: hydrALAZINE TAB 50 MG TAB PO SCH ×2 (08:42→21:44)
[2020-12-01] MEDS: ISOSORBIDE MONO EXTENDED REL 30 MG TABCR PO SCH (08:42)
[2020-12-01] MEDS: INSULIN ASPART 100 UNITS/ML 3 ML PEN SC SCH ×4 (09:32→20:58)
[2020-12-01] MEDS: INSULIN GLARGINE SOLOSTAR 100 UNITS/ML 3 ML PEN SC SCH ×2 (09:32→21:02)
--- NOTE | 2020-12-01 10:07 | Progress Notes ---
DATE: 12/01/2020 SUBJECTIVE: No new issues. Overnight, she did make urine somewhat more with IV Lasix. No new issues. OBJECTIVE: VITAL SIGNS: Blood pressure is 113/64, pulse rate 60, temperature 36.9, 94% on 3 liter nasal cannula. CHEST: Decreased breath sounds, occasional crackles. CARDIOVASCULAR: S1, S2 regular. ABDOMEN: Soft, nontender. EXTREMITIES: Shows no edema. LABORATORY TESTS: From this morning was reviewed and shows creatinine trended down a little bit to 2.65. BUN is 53. Sodium 139, potassium 3.2, bicarbonate 18, chloride 111, hemoglobin 12.4. ASSESSMENT AND PLAN: An 89-year-old female with multiple medical problems including chronic kidney disease stage IV with a baseline creatinine of 2.2, admitted 11 days ago with a chief complaint of fall, weakness in the setting of COVID-19 infection. I have been consulted for acute renal failure and fluid status. Acute renal failure. The acute component is very minimal as she is barely above her baseline creatinine at this time. She did make slightly more urine with IV Lasix. At this point, she appears fairly euvolemic now. RECOMMENDATIONS: 1. Switch to oral Lasix 80 mg daily in the morning from tomorrow. 2. Continue daily labs. 3. Continue input output charting.
[2020-12-01] MEDS: ACETAMINOPHEN 325 MG TAB PO PRN (12:14)
[2020-12-01] MEDS: ASPIRIN 81 MG ECTAB PO SCH (21:46)
[2020-12-02] MEDS: LEVOTHYROXINE SODIUM 100 MCG TABLET PO SCH (05:15)
[2020-12-02 06:39] LABS: Hematocrit (blood only) 38.3 % (37-47); Hemoglobin 12.4 g/dL (12.0-16.0); Mean Corpuscular Hemoglobin 30.1 pg (25-34); Mean Corpuscular Hgb Conc 32.4 g/dL (32-36); Mean Platelet Volume 9.2 fL (7.4-10.4); Platelet Count 262 K/uL (130-400); RDW Coefficient of Variation 14.8 % (11.5-14.5); RDW Standard Deviation 50.4 fL (36.4-46.3); Red Blood Count 4.12 M/uL (4.2-5.4); White Blood Count 9.72 K/uL (4.8-10.8)
[2020-12-02 06:49] LABS: INR 2.9 (0.9-1.1); Prothrombin Time 29.2 Seconds (9.0-12.0)
[2020-12-02 07:01] LABS: BUN Creatinine Ratio 18.5 (10-20); Calcium 8.8 mg/dl (8.5-10.1); Creatinine Clr Calc Pharmacy 11.7 ml/min; Est GFR (African American) 15.8; Est GFR (Non-African American) 13.6; Potassium 3.4 mmol/L (3.5-5.1)
--- NOTE | 2020-12-02 07:44 | Hospitalist Progress Note ---
Date of Service December 02, 2020 Assessment & Plan (1) Fall: (2) Left leg pain: Present on admission due to fall related to weakness from acute illness Left femur/Knee xray showed no acute fracture or dislocation within the left femur left knee. Small left knee effusion. Continue PT/OT Not safe to return home as per physical therapist. Recommended to continue PT while in the hospital; if treatment goals not met, recommend inpatient rehab Daughter said that pt cannot go home and agreed to refer to [facility] for rehab Pain improved significantly Fall precaution (3) COVID-19: Testing positive in the ER Seemed to have cough and runny nose for 1 week. Saturating fine on room air on admission Chest x-ray no significant change compared to the prior study. Does not meet criteria for Remdesivir since pt saturated well on RA and her GFR is less than 30 She was starting on Decadron 6 mg on admission, does not meet criteria since oxygen sat 96% Decadron discontinued due to confusion and also pt was saturated well on RA Continue guaifenesin BID Continue flutter valve Now pt hypoxic however, and on 0-2L of suppl. O2 Repeat CXR showed increase in extensive left basilar opacity which could reflect pneumonia or atelectasis. Pulmonary vascular congestion with suspected mild pulmonary edema. ProBNP elevated Spoke to nephrology and ok to give Lasix Lasix 40mg IV given 11/29 CXR am 11/30 improved However Cr incr to 2.8, discussed w/ nephrology- will cont. IV lasix Continue oxygen supplement for now as needed Pt now on RA, satting in high 90s%, received lasix 60 IV 12/01, plan to switch to PO tmrw (12/02) Continues to use 0-2L of suppl. O2 Switch to PO lasix home meds 40 mg daily on DC Confusion Delirium Multifactorial due to steroid vs UTI vs hospital setting vs acute illness No focal neuro deficit on exam CT head negative for any intracranial abnormality Steroid discontinued daughter said that whenever pt spent 2 days without the Xanax, she becomes confused Daughter insisted that pt to be given her Xanax resolved UTI Denies any urinary symptoms Urine cx positive for gram negative bacilli- Ecoli Completed the course of rocephin IV Repeat UA, Ucltx obtained 11/30 (by nephro) - shows ESBL E.coli - discussed w/ pharmacy - will give one dose of Fosfomycin prior to DC Elevation of troponin Possible related to fall and CKD EKG showed no ischemic changes Cardiology consult as per family request Continue aspirin, Statin and carvedilol cardiology was consulted and recommended to continue current management Spoke to cardiology to call the Daughter Cindy Continue monitor in tele Afib. Tachy/margaret syndrome s/p pacemaker. rate control with Coreg Continue Coumadin, INR 3.8 11/30 Continue monitor PT/INR Current INR 2.9 (12/02/2020) R buttocks pressure ulcer stage 2 - wound care consulted - barrier cream, offload pressure, follow up w/ wound care after discharge Coronary artery disease status post stent Continue aspirin, statin, beta loren and nitrate. Currently stable. Diabetes Most recent HgbA1c 6.8 % Continue Lantus and Insulin sliding scale. Continue monitor BS Hypertension. BP stable Continue hydralazine, Coreg, Lasix, Imdur. Chronic kidney disease stage IV. 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 Last echo in 07/2020 showed EF was 55%. CXR on 11/26 showed pulmonary vascular congestion with suspected mild pulmonary edema. ProBNP elevated Continue home diuretics, Coreg, hydralazine and nitrate. Lasix 40mg IV x1 given 11/29 Lasix 60 mg IV per nephro CXR am 11/30 - improved aeration -CXR ALISSA - Continue cpap @ hs.- home settings Hypothyroidism. - Continue Synthroid. Hyperlipidemia. - Continue statin. Anxiety. - Continue alprazolam p.r.n. Hx of CVA - Continue coumadin, aspirin and statin. hx of Carotid stenosis. s/p left CEA. Continue aspirin and statin. DVT px on Coumadin Disposition Will discharge to [facility] for further care Daughter Cindy - updated over the phone Admission and Anticipated Discharge Date Admission Date: November 22, 2020 Subjective Pt was seen and examined for follow of hypoxia due to COVID 19, fluid overload and other med. problems Per nursing staff pt requires O2 w/ ambulation especially - yesterday switched pulse ox -applied on forehead, pt satting in high 90s, while I was in the room even 100%, keep going between 0-2L/min Pt is sitting in chair with no distress Denies any chest pain, palpitation, dizziness, SOB or fever Review of Systems Review of Systems: All systems reviewed & are unremarkable except as noted in HPI & below Constitutional: no fever and no chills Respiratory: + cough (much improved) and + dyspnea (much improved) Cardiovascular: no chest pain and no palpitations Gastrointestinal: no abdominal pain, no nausea and no vomiting Physical Exam Physical Exam: General- elderly female, No acute distress Head- atraumatic Eyes- PERRL, EOMI, ENT- oropharynx clear Neck- supple, no JVD Lungs- clear to auscultation but somewhat diminished breath sounds Heart- regular rhythm; no murmur Abdomen- normal bowel sounds, soft, nontender Buttocks - right buttock pressure wound/ulcer stage 2 Extremities- no calf tenderness, tenderness in LLE Neuro- alert, oriented x 3; PERRL, EOMI; no facial palsy; no dysarthria, moves extremities Skin- warm & dry Results & Data Results & Data ([facility]) Vital Signs (Past 12 Hours) Vital Signs Temp Pulse Pulse Resp BP Pulse Ox 12/02/20 07:40 36.5 C 61 18 146/75 H 92 12/02/20 06:03 85 L 12/02/20 04:20 36.6 C 60 19 136/72 96 12/02/20 01:22 60 12/01/20 22:56 36.5 C 61 18 146/75 H 92 Laboratory Results 12/02/20 12/02/20 12/02/20 Range/Units 07:21 06:09 06:09 WBC 9.72 (4.8-10.8) K/uL RBC 4.12 L (4.2-5.4) M/uL Hgb 12.4 (12.0-16.0) g/dL Hct 38.3 (37-47) % MCV 93.0 (80-100) fL MCH 30.1 (25-34) pg MCHC 32.4 (32-36) g/dL RDW Std Deviation 50.4 H (36.4-46.3) fL RDW Coeff of Jo Ann 14.8 H (11.5-14.5) % Plt Count 262 (130-400) K/uL MPV 9.2 (7.4-10.4) fL PT (9.0-12.0) Seconds INR (0.9-1.1) Sodium 141 (136-145) mmol/L Potassium 3.4 L (3.5-5.1) mmol/L Chloride 114 H (98-107) mmol/L Carbon Dioxide 17 L (21-32) mmol/L Anion Gap 10.0 (3-11) BUN 55 H (7-18) mg/dl Creatinine 2.95 H D (0.6-1.2) mg/dl Est Cr Clr Drug Dosing 11.7 ml/min Est GFR ( Amer) 15.8 Est GFR (Non-Af Amer) 13.6 BUN/Creatinine Ratio 18.5 (10-20) Glucose 144 H (70-99) mg/dl POC Glucose 133 H (70-99) mg/dl Calcium 8.8 (8.5-10.1) mg/dl 12/02/20 12/01/20 12/01/20 Range/Units 06:09 20:10 16:29 WBC (4.8-10.8) K/uL RBC (4.2-5.4) M/uL Hgb (12.0-16.0) g/dL Hct (37-47) % MCV (80-100) fL MCH (25-34) pg MCHC (32-36) g/dL RDW Std Deviation (36.4-46.3) fL RDW Coeff of Jo Ann (11.5-14.5) % Plt Count (130-400) K/uL MPV (7.4-10.4) fL PT 29.2 H (9.0-12.0) Seconds INR 2.9 H (0.9-1.1) Sodium (136-145) mmol/L Potassium (3.5-5.1) mmol/L Chloride (98-107) mmol/L Carbon Dioxide (21-32) mmol/L Anion Gap (3-11) BUN (7-18) mg/dl Creatinine (0.6-1.2) mg/dl Est Cr Clr Drug Dosing ml/min Est GFR ( Amer) Est GFR (Non-Af Amer) BUN/Creatinine Ratio (10-20) Glucose (70-99) mg/dl POC Glucose 229 H 173 H (70-99) mg/dl Calcium (8.5-10.1) mg/dl 12/01/20 Range/Units 11:23 WBC (4.8-10.8) K/uL RBC (4.2-5.4) M/uL Hgb (12.0-16.0) g/dL Hct (37-47) % MCV (80-100) fL MCH (25-34) pg MCHC (32-36) g/dL RDW Std Deviation (36.4-46.3) fL RDW Coeff of Jo Ann (11.5-14.5) % Plt Count (130-400) K/uL MPV (7.4-10.4) fL PT (9.0-12.0) Seconds INR (0.9-1.1) Sodium (136-145) mmol/L Potassium (3.5-5.1) mmol/L Chloride (98-107) mmol/L Carbon Dioxide (21-32) mmol/L Anion Gap (3-11) BUN (7-18) mg/dl Creatinine (0.6-1.2) mg/dl Est Cr Clr Drug Dosing ml/min Est GFR ( Amer) Est GFR (Non-Af Amer) BUN/Creatinine Ratio (10-20) Glucose (70-99) mg/dl POC Glucose 231 H (70-99) mg/dl Calcium (8.5-10.1) mg/dl Medications Administered Current Inpatient Medications Acetaminophen (Acetaminophen 325 Mg Tab) 650 mg PO Q4H PRN PRN Reason: Pain or Fever Stop: 12/21/20 21:51 Last Admin: 12/01/20 12:14 Dose: 650 mg Documented by: Albuterol (Albuterol Hfa 8 Gm Inhaler) 1 puffs INH QIDR PRN PRN Reason: Shortness Of Breath Or Wheezin Stop: 12/26/20 18:59 Alprazolam (Alprazolam 0.25 Mg Tablet) 0.25 mg PO BID HALINA Stop: 12/23/20 21:29 Last Admin: 12/01/20 21:44 Dose: Not Given Documented by: Aspirin (Aspirin 81 Mg Ectab) 81 mg PO HS HALINA Stop: 12/22/20 20:59 Last Admin: 12/01/20 21:46 Dose: 81 mg Documented by: Atorvastatin Calcium (Atorvastatin 20 Mg Tab) 20 mg PO QAM [facility] Stop: 12/22/20 08:59 Last Admin: 12/01/20 08:42 Dose: 20 mg Documented by: Carvedilol (Carvedilol 6.25 Mg Tab) 6.25 mg PO BID [facility] Stop: 12/21/20 21:51 Last Admin: 12/01/20 21:45 Dose: 6.25 mg Documented by: Doxycycline Hyclate (Doxycycline Hyclate 100 Mg Cap) 100 mg PO BID [facility] Stop: 12/03/20 21:59 Last Admin: 12/01/20 21:46 Dose: 100 mg Documented by: Furosemide (Furosemide 40 Mg Tab) 40 mg PO QAM [facility] Stop: 12/22/20 08:59 Last Admin: 11/27/20 08:28 Dose: 40 mg Documented by: Furosemide (Furosemide 80 Mg Tab) 80 mg PO QAM [facility] Stop: 01/01/21 08:59 Guaifenesin (Guaifenesin 600 Mg Tabcr) 600 mg PO Q12 [facility] Stop: 12/24/20 20:59 Last Admin: 12/01/20 21:46 Dose: 600 mg Documented by: Hydralazine HCl (Hydralazine Tab 50 Mg Tab) 50 mg PO BID [facility] Stop: 12/21/20 21:51 Last Admin: 12/01/20 21:44 Dose: 50 mg Documented by: Insulin Aspart (Insulin Aspart 100 Units/Ml 3 Ml Pen) 0 units SC ACHS [facility] Stop: 12/21/20 22:29 Last Admin: 12/01/20 20:58 Dose: 3 units Documented by: Insulin Glargine (Insulin Glargine Solostar 100 Units/Ml 3 Ml Pen) 10 units SC BID [facility] Stop: 12/28/20 20:59 Last Admin: 12/01/20 21:02 Dose: 10 units Documented by: Ipratropium Avalon (Ipratropium Avalon Hfa Inhaler) 1 puffs INH QIDR PRN PRN Reason: Shortness Of Breath Or Wheezing Stop: 12/26/20 18:59 Isosorbide Mononitrate (Isosorbide Lyman Extended Rel 30 Mg Tabcr) 30 mg PO DAILY [facility] Stop: 12/22/20 08:59 Last Admin: 12/01/20 08:42 Dose: 30 mg Documented by: Levothyroxine Sodium (Levothyroxine Sodium 100 Mcg Tablet) 100 mcg PO DAILYBB [facility] Stop: 12/22/20 06:29 Last Admin: 12/02/20 05:15 Dose: 100 mcg Documented by: Loperamide HCl (Loperamide Hcl 2 Mg Cap) 2 mg PO Q3H PRN PRN Reason: Diarrhea Stop: 12/21/20 21:51 Nitroglycerin (Nitroglycerin Sl 0.4 Mg/Tab Tab) 0.4 mg SL UD PRN PRN Reason: Chest Pain Stop: 12/21/20 21:51 Ondansetron HCl (Ondansetron Inj 2 Mg/Ml 2 Ml Vial) 4 mg IV Q6H PRN PRN Reason: Nausea Stop: 12/21/20 21:51 Polyethylene Glycol (Polyethylene (Miralax) 17 Gm Pack) 17 gm PO DAILY PRN PRN Reason: Constipation Stop: 12/21/20 21:51 Last Admin: 11/29/20 12:54 Dose: 17 gm Documented by: Potassium Chloride (Potassium Chloride Crtab 20 Meq Tabcr) 20 meq PO NOW STA Stop: 12/02/20 07:40 Warfarin Sodium (Warfarin Sod 2.5 Mg Tab) 2.5 mg PO SuTuWeThSa@2100 [facility] Stop: 12/22/20 20:59 Last Admin: 11/26/20 20:34 Dose: 2.5 mg Documented by: Warfarin Sodium (Warfarin Sod 5 Mg Tab) 5 mg PO MoFr@2100 [facility] Stop: 12/25/20 20:59 Last Admin: 11/25/20 20:50 Dose: 5 mg Documented by: (1) Fall Encounter type: initial encounter Qualified Code(s): W19.XXXA - Unspecified fall, initial encounter
[2020-12-02] MEDS ORDERED: POTASSIUM CHLORIDE CRTAB 20 MEQ TABCR PO ONE (08:00)
[2020-12-02] MEDS: INSULIN ASPART 100 UNITS/ML 3 ML PEN SC SCH ×3 (08:10→17:04)
[2020-12-02] MEDS: hydrALAZINE TAB 50 MG TAB PO SCH (08:11)
[2020-12-02] MEDS: DOXYCYCLINE HYCLATE 100 MG CAP PO SCH (08:11)
[2020-12-02] MEDS: ISOSORBIDE MONO EXTENDED REL 30 MG TABCR PO SCH (08:11)
[2020-12-02] MEDS: carvediloL 6.25 MG TAB PO SCH (08:11)
[2020-12-02] MEDS: ALPRAZolam 0.25 MG TABLET PO SCH (08:11)
[2020-12-02] MEDS: ATORVASTATIN 20 MG TAB PO SCH (08:12)
[2020-12-02] MEDS: guaiFENesin 600 MG TABCR PO SCH (08:12)
[2020-12-02] MEDS: INSULIN GLARGINE SOLOSTAR 100 UNITS/ML 3 ML PEN SC SCH (08:12)
[2020-12-02] MEDS ORDERED: FUROSEMIDE 80 MG TAB PO SCH (09:00)
--- NOTE | 2020-12-02 10:47 | Progress Notes ---
DATE: 12/02/2020 SUBJECTIVE: No new issues overnight. The patient does not have any worsening shortness of breath or any new symptoms. OBJECTIVE: VITAL SIGNS: Blood pressure 146/75, 92% on 2 liter nasal cannula. HEENT: Mucous membranes moist. Detailed examination not done today, defer to yesterday's examination. LABORATORY TESTS: Creatinine is 2.95, which is slightly higher than yesterday. Potassium 3.4. Sodium 141, bicarbonate 17. Hemoglobin 12.4, WBC count 9.7, platelet count 262. ASSESSMENT AND PLAN: An 89-year-old female with multiple medical problems including chronic kidney disease stage IV with a baseline creatinine of 2.3. Admitted 12 days ago with a chief complaint of fall, weakness in the setting of COVID-19 infection. I have been consulted for acute renal failure and fluid status. Acute renal failure. The acute component is very minimal as she is only slightly above her baseline creatinine at this time. At this point, she appears fairly euvolemic. RECOMMENDATIONS: 1. Change to oral Lasix 40 daily from tomorrow. 2. Continue daily labs. 3. I believe her renal function has remained fairly stable given acute situation of COVID-19 infection for more than 12 days. She is stable for discharge from renal standpoint, but the final decision will have to be made by hospitalist service after reviewing all of her medical issues.
[2020-12-02] MEDS ORDERED: FOSFOMYCIN TROMETHAMINE 3 GM PACKET PO STA (11:52)
--- NOTE | 2020-12-02 12:52 | Discharge Summary ---
Date of Service December 02, 2020 Admission HPI Per Admitting Provider This 89-year-old female with past medical history significant for type 2 diabetes, diabetic neuropathy, hypothyroidism, hyperlipidemia, hyperparathyroidism, chronic kidney disease IV, hypertension, CAD, history of systolic CHF, moderate Aortic stenosis,moderate mitral regurgitation, obstructive sleep apnea, chronic atrial fibrillation, vitamin D deficiency, renal osteodystrophy, status post cardiac pacemaker, status post angioplasty with stent, anxiety. Lives in an apartment. She gets help with an aide a couple of hours 2 times a week, ambulates with a walker. Presents because she fell yesterday in her apartment. She says she is taking Lasix and she has to go every night to the bathroom to move her bladder. Last night when she was going, she suddenly lost balance and fell on the left side. She did not lose consciousness. She did not hit the head. She was able to get up, but having difficulty putting weight on the leg today and was advised to come to the hospital. In the ER she was found to have temperature spike and also her COVID came back positive. She does not know how she got the COVID. But she has cough for 1 week and runny nose for 1 week. She did not feel any fever at home. No loss of appetite. No loss of sense or smell or taste. No headache, no blurred vision, no earache, no sore throat, no chest pain, no shortness of breath, no nausea, no abdominal pain. Normal bowel and bladder movements. No swelling in the legs, no rash. Currently resting comfortably and hemodynamically stable, saturating fine on room air. Admission Exam Per Admitting Provider GENERAL: The patient is moderate build, not in acute distress. VITAL SIGNS: Temperature 38.5, pulse 67, respiratory rate 18, blood pressure 113/55, oxygen 95% on room air. HEENT: Pupils equal, round, and reactive to light. Oral mucosa moist. NECK: No neck masses. Supple. CARDIOVASCULAR: S1, S2, regular rate and rhythm, no murmur, no gallop. RESPIRATORY SYSTEM: Normal AP diameter. No accessory muscle use. No wheezing, no crackles. ABDOMEN: Soft, bowel sounds present, nontender. No distention. CENTRAL NERVOUS SYSTEM: Cranial nerves II-XII grossly intact. Nonfocal. EXTREMITIES: No edema, no erythema seen. MUSCULOSKELETAL: Left lower extremity painful movements. Principal Diagnosis COVID 19 pna Hypoxia UTI ESBL E. coli Acute on chronic syst. CHF RENATO on CKD Discharge Exam General- elderly female, No acute distress Head- atraumatic Eyes- PERRL, EOMI, ENT- oropharynx clear Neck- supple, no JVD Lungs- clear to auscultation but somewhat diminished breath sounds Heart- regular rhythm; no murmur Abdomen- normal bowel sounds, soft, nontender Buttocks - right buttock pressure wound/ulcer stage 2 Extremities- no calf tenderness, tenderness in LLE Neuro- alert, oriented x 3; PERRL, EOMI; no facial palsy; no dysarthria, moves extremities Skin- warm & dry Discharge Data Allergies Allergy/AdvReac Type Severity Reaction Status Date / Time codeine Allergy Intermediate Unknown Verified 11/21/20 20:59 adhesive Allergy Unknown red;itchy Verified 11/21/20 20:59 skin Consultations 11/21/20 19:57 ED Decision to Admit Stat 11/21/20 21:52 Consult Case Management - Discharge Planning Routine 11/23/20 10:45 Consult Nutrition Routine 11/23/20 20:31 Consult Psychiatry Routine 11/25/20 07:00 Consult Cardiology Routine 11/30/20 09:12 Consult Nephrology Routine Ordered Studies 11/23/20 20:31 CT head/brain wo con Routine Hospital Course (1) Fall: (2) Left leg pain: Present on admission due to fall related to weakness from acute illness Left femur/Knee xray showed no acute fracture or dislocation within the left femur left knee. Small left knee effusion. Continue PT/OT Not safe to return home as per physical therapist. Recommended to continue PT while in the hospital; if treatment goals not met, recommend inpatient rehab Daughter said that pt cannot go home and agreed to refer to [facility] for rehab Pain improved significantly Fall precaution (3) COVID-19: Testing positive in the ER Seemed to have cough and runny nose for 1 week. Saturating fine on room air on admission Chest x-ray no significant change compared to the prior study. Does not meet criteria for Remdesivir since pt saturated well on RA and her GFR is less than 30 She was starting on Decadron 6 mg on admission, does not meet criteria since oxygen sat 96% Decadron discontinued due to confusion and also pt was saturated well on RA Continue guaifenesin BID Continue flutter valve Now pt hypoxic however, and on 0-2L of suppl. O2 Repeat CXR showed increase in extensive left basilar opacity which could reflect pneumonia or atelectasis. Pulmonary vascular congestion with suspected mild pulmonary edema. ProBNP elevated Spoke to nephrology and ok to give Lasix Lasix 40mg IV given 11/29 CXR am 11/30 improved However Cr incr to 2.8, discussed w/ nephrology- will cont. IV lasix Continue oxygen supplement for now as needed Pt now on RA, satting in high 90s%, received lasix 60 IV 12/01, plan to switch to PO tmrw (12/02) Continues to use 0-2L of suppl. O2 Switch to PO lasix home meds 40 mg daily on DC Confusion Delirium Multifactorial due to steroid vs UTI vs hospital setting vs acute illness No focal neuro deficit on exam CT head negative for any intracranial abnormality Steroid discontinued daughter said that whenever pt spent 2 days without the Xanax, she becomes confused Daughter insisted that pt to be given her Xanax resolved UTI Denies any urinary symptoms Urine cx positive for gram negative bacilli- Ecoli Completed the course of rocephin IV Repeat UA, Ucltx obtained 11/30 (by nephro) - shows ESBL E.coli - discussed w/ pharmacy - Gave one dose of Fosfomycin prior to DC Elevation of troponin Possible related to fall and CKD EKG showed no ischemic changes Cardiology consult as per family request Continue aspirin, Statin and carvedilol cardiology was consulted and recommended to continue current management Spoke to cardiology to call the Daughter Cindy Continue monitor in tele Afib. Tachy/margaret syndrome s/p pacemaker. rate control with Coreg Continue Coumadin, INR 3.8 11/30 Continue monitor PT/INR Current INR 2.9 (12/02/2020) R buttocks pressure ulcer stage 2 - wound care consulted - barrier cream, offload pressure, follow up w/ wound care after discharge Coronary artery disease status post stent Continue aspirin, statin, beta loren and nitrate. Currently stable. Diabetes Most recent HgbA1c 6.8 % Continue Lantus and Insulin sliding scale. Continue monitor BS Hypertension. BP stable Continue hydralazine, Coreg, Lasix, Imdur. Chronic kidney disease stage IV. 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 Last echo in 07/2020 showed EF was 55%. CXR on 11/26 showed pulmonary vascular congestion with suspected mild pulmonary edema. ProBNP elevated Continue home diuretics, Coreg, hydralazine and nitrate. Lasix 40mg IV x1 given 11/29 Lasix 60 mg IV per nephro CXR am 11/30 - improved aeration -CXR ALISSA - Continue cpap @ hs.- home settings Hypothyroidism. - Continue Synthroid. Hyperlipidemia. - Continue statin. Anxiety. - Continue alprazolam p.r.n. Hx of CVA - Continue coumadin, aspirin and statin. hx of Carotid stenosis. s/p left CEA. Continue aspirin and statin. DVT px on Coumadin Disposition Will discharge to [facility] for further care Daughter Cindy - updated over the phone Total Time Total Time Spent Total Time Spent (In Minutes): 50 Total Time Includes: Examination of the Patient, Discharge Planning, Medication Reconciliation and Communication With Other Providers Discharge Plan Discharge Items Patient Disposition: [facility] Reason For Visit: FALL Discharge Diagnosis: COVID 19 pna Hypoxia UTI ESBL E. coli Acute on chronic syst. CHF RENATO on CKD Activity: Per Instructions section Non-emergency contact: Primary Care Provider Call non-emergency contact if: you have any medication questions and your symptoms worsen Follow-up/Referrals: Lamonte Thorne, [Primary Care Provider] - Diet: Heart Healthy Addtl Attending Provider Instructions: Follow up with primary care doctor. Use incentive spirometer and also make sure to use your home CPAP at night. Take mucinex for at least 1 more week. take doxycycline (antibiotic) for 2 more days. Also recommend taking probiotic. Recommend to have your INR checked within in next 2-3 days. Your warfarin dose will be then adjusted accordingly by your doctors. Recommend to have your BMP checked and followed by your marketing admin in 1 week. Addtl Crm Analyst Provider Instructions: Pt should be using home CPAP, with her home settings. Pending Studies at Discharge: No Stand-Alone Forms: [facility] Skilled Items Patient informed of condition?: Yes DNR: No Discharge Level of Care: Skilled Communicable Disease: No Discharge Prognosis: Stable Lines: None Urinary Catheter: No Medications and DC Order Prescriptions: New guaifenesin [Mucinex] 600 mg Tablet Extended Release 12hr 600 mg PO Q12 7 Days Qty: 14 RF: 0 doxycycline hyclate 100 mg Capsule 100 mg PO BID 2 Days Qty: 4 RF: 0 Atrovent HFA 17 mcg/actuation Hfa Aerosol Inhaler 1 puff inhalation QIDR PRN (Reason: shortness of breath or wheezing) Qty: 12.9 RF: 0 Advanced Probiotic 625 mg (10 billion cell) Capsule 2 cap PO DAILY 10 Days Qty: 20 RF: 0 Continued potassium chloride 10 mEq capsule, extended release 10 mg PO BID RF: 0 carvedilol [Coreg] 6.25 mg tablet 6.25 mg PO BID RF: 0 atorvastatin [Lipitor] 20 mg tablet 20 mg PO QAM RF: 0 Lantus U-100 Insulin 100 unit/mL solution 0 unit subcut HS RF: 0 alprazolam [Xanax] 0.25 mg tablet 0.25 mg PO BID PRN (Reason: Anxiety) RF: 0 furosemide [Lasix] 20 mg tablet 40 mg PO QAM RF: 0 warfarin [Jantoven] 2.5 mg Tablet 2.5 mg PO .QHS UD RF: 0 aspirin 81 mg Tablet,Delayed Release (Dr/Ec) 81 mg PO HS RF: 0 levothyroxine [Synthroid] 100 mcg tablet 100 mcg PO QAM RF: 0 hydralazine 50 mg tablet 50 mg PO BID RF: 0 isosorbide mononitrate 30 mg tablet extended release 24 hr 30 mg PO DAILY RF: 0 loperamide [Imodium A-D] 2 mg Tablet 2 mg PO Q3H PRN (Reason: Diarrhea) RF: 0 insulin aspart U-100 [Novolog U-100 Insulin aspart] 100 unit/mL Solution 1 sliding scale dose SUBCUT USEASDIRECTD RF: 0 Discharge Orders: Discharge Order (Routine); Ordered 12/02/20 Ordered By: Dion Almaguer/Other Patient Handouts: Managing Type 2 Diabetes Admission Data Admit Date/Time: 11/22/20 10:09 Attending Provider: Dion Laureano Admit Provider: Jean Fiore Primary Care Provider: Lamonte Thorne Other Providers: Jean Fiore ; Jaime Brody ; Bull Mike ; Douglas Delgado ; Dian Grimm ; Howie Perez
[2020-12-02] MEDS: CARBOHYDRATES FOR HYPOGLYCEMIA PO PRN ×2 (16:16→16:32)
[2020-12-02] MEDS ORDERED: GLUCOSE 10 TABS/TUBE PO PRN (16:45)
[2020-12-02] MEDS ORDERED: GLUCOSE 40% GEL 15 GM TUBE PO PRN (16:45)
[2020-12-02] MEDS ORDERED: DEXTROSE 50% 50 ML SYRINGE IV PRN (16:45)
[2020-12-02] MEDS ORDERED: GLUCAGON FOR INJ 1 MG VIAL IM PRN (16:45)
[2020-12-02] MEDS ORDERED: NITROFURANTOIN MONOHYDRATE 100 MG CAP PO SCH (21:00)
[2020-12-03] MEDS ORDERED: ADVANCED PROBIOTIC 1250 MG CAPSULE PO SCH (09:00)
--- NOTE | 2020-12-19 09:59 | Coding Query ---
PRESENT ON ADMISSION QUERY To promote full compliance with coding requirements relating to pateint care, physician participation is requested in all cases of brine well operator uncertainty. Please assist us with the question(s) below: Please place an X within the parenthesis (x). The following diagnosis(es) listed in this patient's medical record require physician assistance to determine if they were present on admission (POA) or not. Please advise for each diagnosis whether it was present on admission, not present on admission, or if it was clinically undetermined. 1. Pneumonia documented on DC summary only (Covid PNA) ( ) Present On Admission ( ) Not Present On Admission (x ) Clinically Undetermined Thank you Flor Kiser *Definition of the present on admission (POA)-Present on admission is defined as present at the time the order for inpatient admission occurs. Conditions that develop during an outpatient encounter prior to a written order for inpatient admission (including emergency department, observation, or outpatient surgery) are considered present on admission. MTDD
== END 2020-12-02 19:30 | DRG 177 ==
LOC: 2S 16:45 → ED 16:45 → 2S 21:36 → SUATTDRO 11-22 10:09 → 2N 11-24 19:47